=== PATIENT | male | born 1985 | race Caucasian/White ===

== ENCOUNTER 2018-11-11 09:28 | Emergency (ER) | payer MEDICAID, SELFPAY ==
[2018-11-11 09:32] VITALS: BP 141/94; PULSE 97; RESP 18; TEMP 37; O2SAT 98
--- NOTE | 2018-11-11 09:54 | ED.GENADUL_ITS ---
Discharge Plan Disposition Patient Disposition: HOME Condition: Good Discharge Details Chief Complaint: GenMedical Clinical Impression: Acute effusion of right ear, Congestion of right ear Primary Care Provider: Polina Darby ED Provider: Vin Fajardo Home Meds and New Rx's Prescriptions: New prednisone 50 MG tablet 50 mg PO DAILY Qty: 5 RF: 0 loratadine 10 mg capsule 10 mg PO DAILY Qty: 10 RF: 0 No Action buspirone 7.5 mg tablet 7.5 mg PO BID Qty: 180 RF: 3 gabapentin 800 mg tablet 800 mg PO TID Qty: 90 RF: 11 amoxicillin-pot clavulanate [Augmentin] 875-125 mg tablet 1 tab PO BID Qty: 20 RF: 0 acetaminophen [Mapap Extra Strength] 500 MG tablet 500 mg PO Q6H PRN PRN (Reason: Pain) Qty: 0 RF: 0 calcium carbonate 500 MG tablet,chewable 500 mg CH PRN PRNRF: 0 Discharge Instructions Instructions: Serous Otitis Media (ED) Additional Instructions: Please take medication as directed. Please take 1000 mg of Tylenol and 800 mg of ibuprofen every 6 hours. If you notice any worsening of your symptoms, or any new symptoms such as worsening neck pain, neck stiffness, headache, vomiting, diarrhea, fever, chills, shortness of breath, chest pain, numbness, weakness, or fainting , please return immediately to the emergency department for reevaluation. Please follow up with your primary care provider as soon as possible for reassessment and reevaluation. As always, it was a pleasure participating in your medical care today. Referrals: Polina Darby, OFFSET PRESS OPERATOR APPRENTICE [Primary Care Provider] - Medical Decision Making This is a pleasant 32-year-old male who presents with multiple complaints. He was diagnosed with a right-sided otitis media 1 week ago and is taking Augmentin as directed. He admits to continued right ear pain and fullness and pressure. He also notes notable fatigue over the last week he denies any significant neck pain or headache. He shows no signs of meningitis. Oropharynx is benign, and shows no signs of airway compromise, no evidence of trismus, or mass in the neck. No swelling in the neck of the face. Signs and symptoms are inconsistent with meningitis, tracheal abscess, neck Mass, otitis media, or other significant abnormality. The patient vital signs are reassuring with no significant tachycardia or fever. I do feel that the patient would benefit from antihistamine and steroid use for his notable effusion behind his right TM. We will also check for mono and flu. As he is completed a full course of A ugmentin, and with no signs or symptoms clinically consistent with strep I do not think that strep testing is indicated at this time especially with no evidence of severe sore throat, tender cervical lymphadenopathy. 10:30 AM Patient is feeling slightly better after medication treatment. Monospot and influenza are both negative. Patient's vital signs are stable and reassuring. I feel he is dealing with some mild sinusitis, and congestion in his right ear as well as a noninfectious effusion behind the right tympanic membrane. We will continue the home medications of steroids and antihistamines. We discussed red flags which to return the patient understands. I have extensively reviewed the treatment plan and discharge instructions with the patient and their family. I have addressed all patient concerns at this time. The patient and family was made aware of what symptoms to monitor for that would warrant a return to the emergency department. Discussed the plan with the patient and family, they demonstrate verbal understanding and agreement with our assessment and plan at this time. HPI General Date/Time Provider Initiated Documentation: 11/11/18 09:34 . HPI Narrative: This is a 32-year-old male with no significant past medical history who presents today for various complaints. Patient states that 1 week ago he was diagnosed with right-sided otitis media and started on Augmentin. He has been taking this as directed, however he has not had any significant improvement of his pain. He still admits to mild pain in his right ear. He also admits to notable fatigue over the last week. He denies any severe neck pain, or headache. He does admit to mild myalgias and achiness throughout though. He denies any vomiting in spite of his nausea. He denies any sore throat. He denies any significant difficulty swallowing. He denies any fever, numbness, tingling, weakness. He has multiple sick contacts at home. He is able to eat and drink well without significant difficulty. He has no other complaints at this time. He denies any recent surgeries, IV illicit drug use, or pertinent family history. Related Data Home Medications Medication Instructions Recorded Confirmed acetaminophen [Mapap Extra 500 mg PO Q6H PRN PRN #0 11/16/17 11/11/18 Strength] calcium carbonate 500 mg CH PRN PRN 03/02/18 11/11/18 buspirone 7.5 mg tablet 7.5 mg PO BID #180 tab-cap 09/18/18 11/11/18 gabapentin 800 mg tablet 800 mg PO TID #90 tab 10/12/18 11/11/18 amoxicillin 875 mg-potassium 1 tab PO BID #20 tab 11/02/18 11/11/18 clavulanate 125 mg tablet loratadine 10 mg PO DAILY #10 cap 11/11/18 prednisone 50 mg PO DAILY #5 tab 11/11/18 Previous Rx's Medication Instructions Recorded acetaminophen [Mapap Extra 500 mg PO Q6H PRN PRN #0 11/16/17 Strength] buspirone 7.5 mg tablet 7.5 mg PO BID #180 tab-cap 09/18/18 gabapentin 800 mg tablet 800 mg PO TID #90 tab 10/12/18 amoxicillin 875 mg-potassium 1 tab PO BID #20 tab 11/02/18 clavulanate 125 mg tablet loratadine 10 mg PO DAILY #10 cap 11/11/18 prednisone 50 mg PO DAILY #5 tab 11/11/18 Allergies Allergy/AdvReac Type Severity Reaction Status Date / Time lisdexamfetamine dimesylate AdvReac Auditory Verified 11/11/18 09:34 [From Vyvanse] Hallucination General Stated Complaint: GenMedical SLY: 3 Review of Systems Review of Systems All systems reviewed & are unremarkable except as noted in HPI and below PFSH Social History household members: spouse and children housing: apartment marital status details: Zoe Escamilla with 3 children lives independently: Yes number of children: 3 current occupational status: unemployed current occupation: cares for with [employer] pets and animals: Yes (Dog) sexually active: Yes Smoking and Tabacco status: Current every day alcohol intake: current alcohol intake frequency: a few times a month Alcohol type: beer substance use type: does not use Exam Narrative Exam Narrative: 1.Const: Well-nourished, Well-developed, appearing stated age 2.Eyes: PERRL, no conjunctival injection, and symmetrical lids. 3.ENT: Atraumatic external nose and ears. Moist MM. Neck: Symmetric, trachea midline, No thyromegaly. Patient demonstrates good movement of cervical neck. There is no nuchal rigidity, no nuchal tenderness. Patient is able to flex the neck without any difficulty or significant pain. Negative Kernig's and Brudzinski sign. Notable clear serous fluid noted behind the right tympanic membrane, mild bulging, no signs of purulent effusion. Minimal erythema. Osseous structures are easily identified. No pain or tenderness over the mastoid process bilaterally. No trismus. Oropharynx demonstrates minimal erythema, no tonsillar exudates, no signs of airway compromise. 4.CVS: +S1/S2, No murmurs or gallops. Peripheral pulses 2+ and equal in all extremities. Brisk capillary refill in all extremities. 5.RESP: Unlabored respiratory effort. Clear to auscultation bilaterally. No wheezes rales or rhonchi 6.GI: Soft, Nontender/Nondistended, No hepatosplenomegaly. No guarding or rebound. No significant abdominal tenderness. No pain at McBurney's point, negative Ng sign. 7.MSK: Normocephalic/Atraumatic, Extremities w/o deformity or ttp No cyanosis or clubbing, Normal movement of all extremities. No midline spinal tenderness. 8.Skin: Warm, Dry. No rashes or lesions. 9.Neuro: boilermaker apprentice II-XII grossly intact. Sensation grossly intact, no focal neurologic deficits. 10.Psych: (AAO) x3. Appropriate mood and affect Course Vital Signs Temperature 37.0 C 11/11/18 09:32 Pulse 97 H 11/11/18 09:32 Respiratory Rate 18 11/11/18 09:32 Blood Pressure 141/94 H 11/11/18 09:32 Pulse Oximetry 98 11/11/18 09:32 Temperature 37.0 C 11/11/18 09:32 Temperature Source Skin 11/11/18 09:32 Pulse 97 H 11/11/18 09:32 Respiratory Rate 18 11/11/18 09:32 Respiratory Effort 11/11/18 09:48 Blood Pressure 141/94 H 11/11/18 09:32 Pulse Oximetry 98 11/11/18 09:32 Oxygen Delivery Method Room Air 11/11/18 09:32 Oxygen Flow Rate 0 02/20/19 09:32 Lab/Test Results Lab/Test Results: 11/11/18 09:47 Nose Influenza Types A,B Antigen - Pending
[2018-11-11] MEDS: Loratidine 10 MG TAB 20 MG PO (09:57)
[2018-11-11] MEDS: Acetaminophen 500 MG TAB 1000 MG PO (09:57)
[2018-11-11] MEDS: Ibuprofen 800 MG TAB PO (09:58)
[2018-11-11] MEDS: predniSONE 20 MG TAB 60 MG PO (09:58)
--- NOTE | 2018-11-11 10:13 | NUR.NOTE ---
patient ambulated to [facility], awaiting results Nursing Note:
[2018-11-11 10:15] LABS: Mono Screening Negative (Negative)
== END 2018-11-11 10:40 | disposition home or self-care (01) ==
PROVIDERS: Emergency Provider Student in an Organized Health Care Education/Training Program; PCP Nurse Practitioner Adult Health
DX: H65.191 Other acute nonsuppurative otitis media, right ear (principal); H93.8X1 Other specified disorders of right ear
CPT/HCPCS: 87449; 99283; 86308; J7512

== ENCOUNTER 2018-11-20 15:51 | Outpatient (REF) | payer MEDICAID, SELFPAY ==
[2018-11-20 18:19] LABS: ALT 76 U/L (12-78); AST 38 U/L (15-37); Alkaline Phosphatase 76 U/L (46-116); Anion Gap 8.8 mmol/L (3-11); BUN 18 mg/dL (7-18); Bilirubin, Total 0.3 mg/dL (0.2-1.0); CO2 29.2 mmol/L (21.0-32.0); CREATININE 1.32 mg/dL (0.70-1.30); Calcium 9.5 mg/dL (8.5-10.1); Chloride 102 mmol/L (98-107); Cholesterol 249 mg/dL (50-200); Glucose 116 mg/dL (70-100); HDL Cholesterol 43 mg/dL (40-60); LDL CHOLESTEROL 168 mg/dL (<100); Potassium 3.9 mmol/L (3.5-5.1); Sodium 140 mmol/L (136-145); Total Protein 7.4 g/dL (6.4-8.2); Triglyceride 275 mg/dL (30-150)
[2018-11-20 18:21] LABS: Hemoglobin A1C 5.8 % (4.5-6.2)
== END 2018-11-20 16:11 ==
LOC: LBN 15:51
PROVIDERS: PCP Nurse Practitioner Adult Health; Visit Provider Nurse Practitioner Adult Health
DX: F17.200 Nicotine dependence, unspecified, uncomplicated (principal); F41.9 Anxiety disorder, unspecified; Z51.81 Encounter for therapeutic drug level monitoring; Z83.3 Family history of diabetes mellitus; Z83.438 Family history of other disorder of lipoprotein metabolism and other lipidemia
CPT/HCPCS: 80053; 80061; 83721; 83036

== ENCOUNTER 2018-12-21 11:37 | Outpatient (REF) | payer MEDICAID, SELFPAY ==
[2018-12-21 13:31] LABS: ALT 48 U/L (12-78); AST 29 U/L (15-37); Albumin 3.5 g/dL (3.4-5.0); Alkaline Phosphatase 87 U/L (46-116); Anion Gap 13.1 mmol/L (3-11); BUN 11 mg/dL (7-18); Bilirubin, Total 0.3 mg/dL (0.2-1.0); CO2 22.9 mmol/L (21.0-32.0); Calcium 9.1 mg/dL (8.5-10.1); Chloride 104 mmol/L (98-107); Glucose 161 mg/dL (70-100); Potassium 4.2 mmol/L (3.5-5.1); Sodium 140 mmol/L (136-145); Total Protein 6.7 g/dL (6.4-8.2)
== END 2018-12-21 11:57 ==
LOC: LBN 11:37
PROVIDERS: PCP Nurse Practitioner Adult Health; Visit Provider Nurse Practitioner Adult Health
DX: R94.5 Abnormal results of liver function studies (principal); N28.9 Disorder of kidney and ureter, unspecified
CPT/HCPCS: 80053

== ENCOUNTER 2019-01-15 09:40 | Emergency (ER) | payer MEDICAID, SELFPAY ==
[2019-01-15] VITALS (20 sets, daily range): BP systolic 105–172; BP diastolic 65–102; PULSE 88–125; RESP 11–32; TEMP 37; O2SAT 90–99
--- NOTE | 2019-01-15 09:55 | DI.RAD_ITS ---
SYMPTOMS/DIAGNOSIS: RESTLESS, TACHYCARDIAC, ? ACUTE DISEASE AP AND LATERAL CHEST: Comparison is made with [id number]. The heart size is within normal limits for projection. The lungs are well inflated and clear. No infiltrate effusion or pneumothorax is seen. No mass is identified. IMPRESSION: Negative chest x-ray.
--- NOTE | 2019-01-15 09:57 | DI.CT_ITS ---
SYMPTOMS/DIAGNOSIS: LT EYE BLURRY VISION, ? ACUTE CVA NONCONTRAST HEAD CT: There are no prior comparison exams. No intracranial hemorrhage, mass or infarct is seen. The ventricles are normal in size. The orbits are unremarkable. There is minimal sinus mucosal thickening. IMPRESSION: Negative head CT.
--- NOTE | 2019-01-15 09:58 | ED.GENADUL_ITS ---
Discharge Plan Disposition Patient Disposition: HOME Condition: Improving Discharge Details Chief Complaint: Anxiety Clinical Impression: Anxiety, Insomnia Primary Care Provider: Polina Darby ED Provider: Shantell Marshall Home Meds and New Rx's Prescriptions: Continued buspirone 7.5 mg tablet 7.5 mg PO BID Qty: 180 RF: 3 ranitidine HCl [Zantac] 150 mg tablet 150 mg PO DAILY RF: 0 gabapentin 800 mg tablet 800 mg PO TID Qty: 90 RF: 11 acetaminophen [Mapap Extra Strength] 500 MG tablet 500 mg PO Q6H PRN PRN (Reason: Pain) Qty: 0 RF: 0 calcium carbonate 500 MG tablet,chewable 500 mg CH PRN PRNRF: 0 Discharge Instructions Instructions: Anxiety (ED) Additional Instructions: Follow-up with your scheduled appointment with your doctor on Friday and Human services on . Drink plenty of fluids get plenty of rest. Return immediately to the emergency department with any worsening or new concerning symptoms. Discharge Data Discharge Date/Time-TO BE ENTERED AT DEPARTURE: 01/15/19 13:25 Discharge Physician: Shantell Marshall Medical Decision Making 33-year-old male with a history of anxiety, PTSD, panic attacks and ADHD who presents with tics, restlessness, left eye blurry vision since awaking him from sleep at 1 AM. He has been taking 20 mg daily of Adderall recreationally recently for his ADHD. Has had similar episodes in the past but has not sought medical treatment for this. Review of patient's medical records note that he is seen frequently seen at [facility] for anxiety and depression with panic attacks and also has a h/o cutting and unintentional overdose of recreational tramadol. Blood pressure and heart rate elevated. Remainder of vitals within normal limits. Patient appears anxious. No focal deficits. We will check a visual acuity, place an IV, bolus IV fluids, labs, EKG, chest x- ray and CT head. Suspect symptoms may be due to anxiety, but will rule out another organic cause. Will give a dose of Ativan. 1230 --labs and imaging reviewed and unremarkable. UDS positive for amphetamines consistent with Adderall. CT head, chest x-ray negative. Patient states he feels much better and is requesting to go home. His heart rate is 80s. His blood pressure is within normal limits. Visual acuity noted 20/70 on left, 20/40 on right, and 20/25 bilateral. Patient states he has had this blurry vision in his left eye intermittently over the past few months. He states the blurry vision has improved since arrival. As this blurry vision has been chronic and intermittent, appears unlikely to be due to an acute neurologic cause. Patient discussed that he feels like his symptoms are due to anxiety. Patient was evaluated by [facility] Abhinav at bedside. Patient has a follow-up appointment with his doctor on Friday and his counselor at [facility] on . Discussed with patient and his at bedside and she feels comfortable with him going home. had called earlier to state that patient has not slept for several days and had been taking the Adderall. Patient states he would rather go home and follow-up with his appointments next week. He is instructed to drink plenty of fluids, get plenty of rest, and return immediately to the emergency department any worsening or new concerning symptoms. Medical Records Medical records reviewed: Yes I reviewed the patient's medical records. Imaging Data Radiologic Study: Radiologist's impression: AP AND LATERAL CHEST: Comparison is made with [id number]. The heart size is within normal limits for projection. The lungs are well inflated and clear. No infiltrate effusion or pneumothorax is seen. No mass is identified. IMPRESSION: Negative chest x-ray. NONCONTRAST HEAD CT: There are no prior comparison exams. No intracranial hemorrhage, mass or infarct is seen. The ventricles are normal in size. The orbits are unremarkable. There is minimal sinus mucosal thickening. IMPRESSION: Negative head CT. Lab Data Lab results reviewed: Yes I reviewed the patient's lab results. Laboratory Tests Range/Units 01/15/19 01/15/19 01/15/19 10:20 10:20 10:30 WBC (4.4-10.8) k/cumm 9.64 RBC (4.50-6.00) m/cumm 5.76 Hgb (13.5-17.5) g/dL 16.9 Hct (40.0-50.0) % 49.0 MCV (80-95) fL 85.1 MCH (27.0-33.0) pg 29.3 MCHC (32.0-36.0) g/dL 34.5 RDW (11.8-14.1) % 13.4 Plt Count (130-400) x1000/uL 296 MPV (8.0-11.0) fL 10.5 Immature Gran % 0.2 Neutrophils % 63.8 Lymphocytes % 22.2 Monocytes % 7.4 Eosinophils % 6.1 Basophils % 0.3 Absolute Neutrophils (1.2-6.7) k/cumm 6.15 Absolute Lymphocytes (1.2-3.4) k/cumm 2.14 Absolute Monocytes (0.11-0.7) k/cumm 0.71 H Absolute Eosinophils (0.0-0.7) k/cumm 0.59 Absolute Basophils (0.0-0.2) k/cumm 0.03 Sodium (136-145) mmol/L 138 Potassium (3.5-5.1) mmol/L 3.5 Chloride (98-107) mmol/L 101 Carbon Dioxide (21.0-32.0) mmol/L 24.4 Anion Gap (3-11) mmol/L 12.6 H BUN (7-18) mg/dL 12 Creatinine (0.70-1.30) mg/dL 1.31 H Estimated GFR/1.73 m2 (mL/min/1.73m2) >= 60.00 Glucose (70-100) mg/dL 127 H Calcium (8.5-10.1) mg/dL 9.2 Magnesium (1.8-2.4) mg/dL 2.3 Total Bilirubin (0.2-1.0) mg/dL 0.5 AST (15-37) U/L 28 ALT (12-78) U/L 50 Alkaline Phosphatase (46-116) U/L 86 Troponin I (0.00-0.06) ng/mL < 0.02 Total Protein (6.4-8.2) g/dL 7.9 Albumin (3.4-5.0) g/dL 4.0 Urine Opiates Screen (Negative) Negative Urine Methadone Screen (Negative) Negative Ur Barbiturates Screen (Negative) Negative Ur Tricyclics Screen (Negative) Negative Ur Amphetamines Screen (Negative) Positive U Benzodiazepines Scrn (Negative) Negative Urine Cocaine Screen (Negative) Negative Ur THC Screen (Negative) Negative ECG Data Attestation: I personally reviewed and interpreted this ECG (s) as follows: Interpretation: 103bpm. Sinus tachycardia. No acute ST elevation or depression. QTc 461. QRS 102. HPI General Mode of arrival: ambulatory . Date/Time Provider Initiated Documentation: 01/15/19 09:41 . Limitations to Documentation: no limitations . Information obtained by: patient . HPI Narrative: Patient is a 33-year-old male with history of anxiety, PTSD, panic attacks and ADHD who presents with multiple complaints since 1 AM. Patient states he was sleeping when he was suddenly awoken at 1am with restlessness, tics, and blurry double vision in his left eye. Patient states he has had 3 similar episodes before in the past but has not sought medical treatment for this. Patient states usually these episodes resolve on their own but states this episode has been lasting longer. Patient states he takes recreational Adderall for a total of 20 mg daily recently. He states he had been taking BuSpar up to 1 month ago for anxiety but he stopped this. Patient states he feels a hot flushed numb and fuzzy warm feeling in his head. He also admits to recent lack of sleep which he associates with the sy mptoms. He states he has been eating and drinking normally and denies any known fever, vomiting or diarrhea. He denies any chest pain or shortness of breath. He denies headache but does admit to a sore feeling in his neck arms and legs. Related Data Home Medications Medication Instructions Recorded Confirmed acetaminophen [Mapap Extra 500 mg PO Q6H PRN PRN #0 11/16/17 01/15/19 Strength] calcium carbonate 500 mg CH PRN PRN 03/02/18 01/15/19 buspirone 7.5 mg tablet 7.5 mg PO BID #180 tab-cap 09/18/18 01/15/19 gabapentin 800 mg tablet 800 mg PO TID #90 tab 10/12/18 01/15/19 ranitidine 150 mg tablet 150 mg PO DAILY 12/21/18 01/15/19 Previous Rx's Medication Instructions Recorded acetaminophen [Mapap Extra 500 mg PO Q6H PRN PRN #0 11/16/17 Strength] buspirone 7.5 mg tablet 7.5 mg PO BID #180 tab-cap 09/18/18 gabapentin 800 mg tablet 800 mg PO TID #90 tab 10/12/18 Allergies Allergy/AdvReac Type Severity Reaction Status Date / Time lisdexamfetamine dimesylate AdvReac Auditory Verified 01/15/19 11:42 [From Vyvanse] Hallucination General Stated Complaint: Anxiety SLY: 3 Review of Systems Review of Systems All systems reviewed & are unremarkable except as noted in HPI and below Constitutional Reports as per HPI, Denies chills and Denies fever(s) Eyes Reports blurry vision (left eye double vision) ENT Denies dizziness, Denies sore throat and Denies throat swelling Cardiovascular Denies chest pain and Denies dyspnea Respiratory Denies cough and Denies dyspnea Gastrointestinal Denies abdominal pain, Denies diarrhea and Denies vomiting Genitourinary Denies hematuria and Denies dysuria Musculoskeletal Denies back pain and Denies numbness Integumentary/Breasts Denies lesions and Denies rash Neurologic Denies dizziness, Denies focal weakness, Denies numbness and Reports restless legs Allergic/Immunologic Denies throat swelling [facility] Medical History Esophagitis with gastritis (Chronic) Abdominal adhesions (Chronic 07/29/16) Depression (Chronic 03/12/17) Family history of diabetes mellitus (Chronic 07/29/16) Intentional self-harm by blunt object, initial encounter (Chronic 01/13/18) PTSD (post-traumatic stress disorder) (Chronic 03/12/17) Substance use disorder (Chronic 12/22/17) Tobacco use disorder (Chronic 07/29/16) Tubular adenoma of colon (Chronic 03/03/18) Acute appendicitis (Resolved ~05/2015) Inflammatory bowel diseases (IBD) (Ruled-out ~02/2018) Surgical History Appendectomy (06/15/15) Colonoscopy - MAC (03/03/18) EGD - MAC (03/03/18) Laparotomy (12/05/17) Family History Mother Mental disorder Father Essential hypertension Other Asthma Social History Smoking/Tobacco Use Status: Current every day Alcohol Intake: current Alcohol Intake frequency: a few times a month Alcohol type: beer Drug use: Never Substance use type: does not use Household members: spouse and children Housing: apartment Number of Children: 3 current occupation: cares for with [employer] Pets and animals: Yes (Dog) Sexually active: Yes Do you feel safe in your relationship?: Yes Exam Const General: cooperative and anxious HENMT Head: normal to inspection Ears: hearing grossly normal bilaterally and external ears normal Face and sinus: normal facial exam Mouth: oral mucosae normal Throat: posterior oropharynx normal Eyes General: appearance normal, both eyes and all related structures Pupils: PERRL EOM: EOM intact bilaterally Neck Neck: normal visual inspection and No submandibular swelling Lymphatic: no lymphadenopathy noted Chest Chest: normal inspection of the chest and no tenderness Resp Effort & Inspection: normal respiratory effort and able to speak in complete sentences Auscultation: clear to auscultation bilaterally Cardio Rate: tachycardic Rhythm: regular rhythm GI Inspection: normal to inspection Palpation: soft, not firm, not rigid and nontender Auscultation: normal bowel sounds Skin General skin exam: no rashes or lesions noted Neuro General: alert, awake and oriented x3 Cranial Nerves: CN's II-XI intact bilaterally Cognition: normal cognition Speech: speech normal Motor: muscle tone normal throughout and strength 5/5 throughout Sensory Exam: no sensory deficits noted Extrem General: normal to inspection, full ROM and no edema Psych Appearance: grossly normal Mental Status: mental status grossly normal Speech and Movement: speech and movement normal Affect: normal affect Course Vital Signs Temperature 98.6 F 01/15/19 09:47 Pulse 125 H 01/15/19 09:47 Respiratory Rate 24 01/15/19 09:47 Blood Pressure 172/102 H 01/15/19 09:47 Pulse Oximetry 98 01/15/19 09:47 Temperature 98.6 F 01/15/19 09:47 Pulse 125 H 01/15/19 09:47 Respiratory Rate 24 01/15/19 09:47 Blood Pressure 172/102 H 01/15/19 09:47 Blood Pressure Position Sitting 01/15/19 09:47 Pulse Oximetry 98 01/15/19 09:47 Oxygen Delivery Method Room Air 01/15/19 09:47 Oxygen Flow Rate 0 01/15/19 09:47
[2019-01-15] MEDS: Normal Saline 1,000 ML 1000 ML IV (10:25)
[2019-01-15] MEDS: LORazepam 2 MG/ML VIAL 1 MG IVP (10:25)
[2019-01-15 10:29] LABS: Abs Immature Grans 0.02 k/cumm (0.0-0.09); Absolute Basophil Count 0.03 k/cumm (0.0-0.2); Absolute Eosinophil Count 0.59 k/cumm (0.0-0.7); Absolute Lymphocyte Count 2.14 k/cumm (1.2-3.4); Absolute Monocyte Count 0.71 k/cumm (0.11-0.7); Absolute Neutrophil Count 6.15 k/cumm (1.2-6.7); Basophils % 0.3; Eosinophils % 6.1; HGB 16.9 g/dL (13.5-17.5); Immature Grans % 0.2; Lymphocytes % 22.2; Mean Corp. HGB Concentration 34.5 g/dL (32.0-36.0); Mean Corpuscular Hemoglobin 29.3 pg (27.0-33.0); Mean Corpuscular Volume 85.1 fL (80-95); Mean Platelet Volume 10.5 fL (8.0-11.0); Monocytes % 7.4; Neutrophils % 63.8; Platelet Count 296 x1000/uL (130-400); RBC 5.76 m/cumm (4.50-6.00); RBC Distribution Width 13.4 % (11.8-14.1); White Blood Cell Count 9.64 k/cumm (4.4-10.8)
[2019-01-15 10:46] LABS: ALT 50 U/L (12-78); AST 28 U/L (15-37); Alkaline Phosphatase 86 U/L (46-116); Anion Gap 12.6 mmol/L (3-11); BUN 12 mg/dL (7-18); Bilirubin, Total 0.5 mg/dL (0.2-1.0); CO2 24.4 mmol/L (21.0-32.0); CREATININE 1.31 mg/dL (0.70-1.30); Calcium 9.2 mg/dL (8.5-10.1); Chloride 101 mmol/L (98-107); Glucose 127 mg/dL (70-100); Magnesium 2.3 mg/dL (1.8-2.4); Potassium 3.5 mmol/L (3.5-5.1); Sodium 138 mmol/L (136-145); Total Protein 7.9 g/dL (6.4-8.2)
[2019-01-15 10:48] LABS: Troponin I < 0.02 ng/mL (0.00-0.06)
[2019-01-15 10:53] LABS: *AMPHETAMINES SCREEN URINE POSITIVE (Negative); *BARBITURATES SCREEN URINE Negative (Negative); *BENZODIAZEPINES SCREEN URINE Negative (Negative); Cannabinoids THC Negative (Negative); Cocaine Screen,Urine Negative (Negative); METHADONE URINE SCREEN Negative (Negative); OPIATES URINE SCREEN Negative (Negative)
[2019-01-15 10:57] LABS: Tricyclic Antidepressants Negative (Negative)
--- NOTE | 2019-01-15 12:32 | PDOC.MHCN ---
Date of service: 01/15/19 Time of Service: 12:32 Mental Health Crisis Note Presenting Issue How did you arrive at the ED and why did you come: Malcolm arrived in the emergency room due to wanting to get some abdominal pain examined. During the medical work-up the doctor became concerned about the level of anxiety he presented. Precipitating Factors Malcolm denies current or past history of suicidal ideation, planning, intent, or attempts. He identifies a consistent treatment team that he addresses his anxiety with regularly. Disposition BEHAVIOR: cooperative but slightly sullen EYE CONTACT: good MOOD: anxious AFFECT: irritable APPETITE: good SLEEP(trouble falling/staying asleep: none reported Plan Malcolm will follow up with his counselor at [facility]. He will also follow up with his psychiatrist at [facility]. He is ok to be safely released upon his own accord.
== END 2019-01-15 13:25 | disposition home or self-care (01) ==
PROVIDERS: Emergency Provider Physician Assistant; PCP Nurse Practitioner Adult Health
DX: R45.1 Restlessness and agitation (principal); G47.00 Insomnia, unspecified; F41.0 Panic disorder [episodic paroxysmal anxiety]; F90.9 Attention-deficit hyperactivity disorder, unspecified type; F41.8 Other specified anxiety disorders; H53.8 Other visual disturbances
CPT/HCPCS: 36415; 80053; 80307; 93005; 96361; 96374; 99285; 70450; 71046; 83735; 84484; 85025; 93010; J2060

== ENCOUNTER 2019-04-05 18:56 | Inpatient (IN) | payer MEDICAID, SELFPAY ==
[2019-04-05] VITALS (56 sets, daily range): BP systolic 103–138; BP diastolic 58–113; PULSE 64–117; RESP 11–36; TEMP 37.8; O2SAT 90–100
--- NOTE | 2019-04-05 18:56 | NUR.NOTE ---
Nursing Note: ems states that pt is combative and hostile. ems states that PT has been exhibiting skitsfrenic actions pt was unable to communicate with ems and was violent and combative. ems called [facility] who chased the PT down and EMS was able to give PT was given 5 MG of versed after being moved to ambulance PT was combative for safety of ems pt was given 5 additional MG of versed 10MG total. pt took 27 30mg tablets of vivance
--- NOTE | 2019-04-05 19:01 | W.ED.GENAD ---
Discharge Plan Disposition Patient Disposition: [facility] INPATIENT Condition: Fair Discharge Details Chief Complaint: OD/Poison Clinical Impression: Amphetamine overdose of undetermined intent, Acute hypokalemia Primary Care Provider: Polina Darby ED Provider: Chase Alegria Home Meds and New Rx's Prescriptions: No Action ranitidine HCl [Zantac] 150 mg tablet 150 mg PO DAILY Qty: 60 RF: 11 polyethylene glycol 3350 [Miralax] 17 gram powder in packet 17 gm PO .-W- PRN (Reason: constipation) Qty: 30 RF: 1 atomoxetine [Strattera] 60 mg capsule 60 mg PO QHS RF: 0 gabapentin 800 mg tablet 800 mg PO TID Qty: 90 RF: 11 acetaminophen [Mapap Extra Strength] 500 MG tablet 500 mg PO Q6H PRN PRN (Reason: Pain) Qty: 0 RF: 0 calcium carbonate 500 MG tablet,chewable 500 mg CH PRN PRNRF: 0 Medical Decision Making Head CT negative, chest x-ray unremarkable. Patient slowly becoming more alert after initial 2-hour observation. Initially required placement of soft restraints due to agitation and inability to follow commands, flailing and kicking, risk for falling and harming himself and staff. Progressively removed restraints until they were able to be completely removed. Poison control contacted shortly after arrival, recommending observation for minimum of 6 hours, possibly longer based on condition. Initially presented hyperthermic and tachycardic, this resolved after second liter of IV normal saline. No additional medicines were required. Patient on 3 L O2 initially as he had snoring respirations, oxygenating at 98% with 3 L nasal cannula. 4 hours into visit, patient is able to follow commands, states he is aware he is in the emergency department, unable to hold conversation due to somnolence. Continues without focal neurologic deficit. I have contacted ICU for admission, Dr. Sotomayor kindly accepting for observation status. We will repeat Tylenol and chemistry now as it has been 4 hours. Labs remarkable for hypokalemia which we are repleting with IV KCl. 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 He had not been prescribed amphetamines for 2 years after the last time he abused them and developed psychosis. 3 days ago he was prescribed 30 mg Vyvanse and since that time he has been taking handfuls of this and not sleeping. He has been getting progressively anxious and paranoid according to family and . His kicked him out of the house today as a result and while he was at his mother's home he became agitated, throwing objects, and she had to call the police. They tackled him for fear of him hurting himself. EMS arrived and gave him 5 mg of Versed followed by an additional 5 mg. He arrives somnolent with intermittent episodes of agitation and combativeness. No reports of suicidality but his family is concerned that he does intentionally abuse his medications as an attempt to escape his depression. He has a history of cutting. He also has a history of abusing gabapentin which he ran out of 1 week ago. General Date/Time Provider Initiated Documentation: 04/05/19 19:22. Related Data Home Medications Medication Instructions Recorded Confirmed acetaminophen [Mapap Extra 500 mg PO Q6H PRN PRN #0 11/16/17 03/01/19 Strength] calcium carbonate 500 mg CH PRN PRN 03/02/18 03/01/19 ranitidine HCl 150 mg tablet 150 mg PO DAILY #60 tab 01/18/19 03/01/19 atomoxetine 60 mg capsule 60 mg PO QHS cap 02/01/19 03/01/19 gabapentin 800 mg tablet 800 mg PO TID #90 tab 02/01/19 03/01/19 polyethylene glycol 3350 17 gram 17 gm PO .M-W-F PRN #30 each 03/01/19 03/01/19 oral powder packet Previous Rx's Medication Instructions Recorded acetaminophen [Mapap Extra 500 mg PO Q6H PRN PRN #0 11/16/17 Strength] ranitidine HCl 150 mg tablet 150 mg PO DAILY #60 tab 01/18/19 gabapentin 800 mg tablet 800 mg PO TID #90 tab 02/01/19 polyethylene glycol 3350 17 gram 17 gm PO .M-W-F PRN #30 each 03/01/19 oral powder packet Allergies Allergy/AdvReac Type Severity Reaction Status Date / Time lisdexamfetamine dimesylate AdvReac Auditory Verified 03/01/19 11:37 [From Sylvia] Hallucination General SLY: 3 Review of Systems Review of Systems Unobtainable due to illness [facility] Medical History Abdominal adhesions (Chronic 07/29/16) Acute appendicitis (Resolved ~05/2015) Depression (Chronic 03/12/17) Esophagitis with gastritis (Chronic) Family history of diabetes mellitus (Chronic 07/29/16) Inflammatory bowel diseases (IBD) (Ruled-out ~02/2018) Intentional self-harm by blunt object, initial encounter (Resolved 01/13/18) PTSD (post-traumatic stress disorder) (Chronic 03/12/17) Substance use disorder (Chronic 12/22/17) Tobacco use disorder (Chronic 07/29/16) Tubular adenoma of colon (Chronic 03/03/18) Surgical History Appendectomy (06/15/15) Colonoscopy - MAC (03/03/18) EGD - MAC (03/03/18) Laparotomy (12/05/17) Family History Mother Mental disorder Father Essential hypertension Ulcerative colitis Other Asthma Social History Smoking/Tobacco Use Status: Current every day Alcohol Intake: current Alcohol Intake frequency: a few times a month Alcohol type: beer Drug use: Never Substance use type: does not use Household members: spouse and children Housing: apartment Number of Children: 3 current occupation: cares for with [employer] Pets and animals: Yes (Dog) Sexually active: Yes Do you feel safe in your relationship?: Yes Exam Const Other: Initially sleeping however when stimulated quickly becomes agitated, flailing arms and kicking legs. Unable to follow commands. Disheveled, dirt on forehead and chest. HENMT Mouth: moist mucous membranes Eyes Conjunctivae: conjunctivae normal Sclera: sclerae normal Neck Neck: trachea midline Resp Effort & Inspection: normal respiratory effort Auscultation: clear to auscultation bilaterally Cardio Rhythm: regular rhythm GI Inspection: non-distended Palpation: soft, not firm, no guarding, no masses and nontender Skin General skin exam: no rashes or lesions noted Neuro General: awake, tone normal, moves all extremities, no focal motor deficits and CN's II-XI intact bilaterally Pupils: Normal pupillary reactivity/response: right and left Psych Appearance: grossly normal
--- NOTE | 2019-04-05 19:02 | DI.COMBO_ITS ---
SYMPTOM/DIAGNOSIS: ALTERED MENTAL STATUS, HEAD INJURY NONCONTRAST HEAD CT: Comparison is made with 01/15/19. A noncontrast cranial CT was performed. The ventricular system is normal in appearance. There is no evidence of an intracranial mass lesion. There is no evidence of a subdural or epidural hematoma. No focal areas of decreased attenuation are seen. CONCLUSION: Normal noncontrast Cranial CT. AP CHEST: Comparison is made with 01/15/19. Heart size and pulmonary vasculature are within normal limits. There is poor inspiration. The lungs are clear. No effusions or pneumothoraces are identified. No acute osseous abnormality is identified. IMPRESSION: No acute pulmonary process.
[2019-04-05 19:26] LABS: Abs Immature Grans 0.05 k/cumm (0.0-0.09); Basophils % 0.3; HCT 42.3 % (40.0-50.0); HGB 14.9 g/dL (13.5-17.5); Immature Grans % 0.3; Lymphocytes % 9.6; Mean Corp. HGB Concentration 35.2 g/dL (32.0-36.0); Mean Corpuscular Volume 85.3 fL (80-95); Mean Platelet Volume 10.5 fL (8.0-11.0); Monocytes % 5.1; Neutrophils % 83.7; Platelet Count 316 x1000/uL (130-400); RBC 4.96 m/cumm (4.50-6.00); RBC Distribution Width 13.1 % (11.8-14.1); White Blood Cell Count 15.35 k/cumm (4.4-10.8)
[2019-04-05 19:31] LABS: Absolute Basophil Count 0.05 k/cumm (0.0-0.2); Absolute Eosinophil Count 0.15 k/cumm (0.0-0.7); Absolute Lymphocyte Count 1.47 k/cumm (1.2-3.4); Absolute Monocyte Count 0.78 k/cumm (0.11-0.7); Absolute Neutrophil Count 12.85 k/cumm (1.2-6.7)
[2019-04-05] MEDS: Normal Saline 1,000 ML 1000 ML IV (19:46)
[2019-04-05 19:49] LABS: ALT 56 U/L (12-78); AST 38 U/L (15-37); Alkaline Phosphatase 79 U/L (46-116); Anion Gap 13.7 mmol/L (3-11); BUN 18 mg/dL (7-18); Bilirubin, Total 0.6 mg/dL (0.2-1.0); CO2 24.3 mmol/L (21.0-32.0); CREATININE 1.46 mg/dL (0.70-1.30); Calcium 9.7 mg/dL (8.5-10.1); Chloride 106 mmol/L (98-107); Estimated GFR 56.32 (mL/min/1.73m2); Glucose 144 mg/dL (70-100); Magnesium 1.8 mg/dL (1.8-2.4); Potassium 3.1 mmol/L (3.5-5.1); Sodium 144 mmol/L (136-145); Total Protein 7.6 g/dL (6.4-8.2)
--- NOTE | 2019-04-05 19:58 | DI.VRAD_ITS ---
EXAM: CT Head Without Contrast EXAM DATE/TIME: 04/05/2019 7:06 PM CLINICAL HISTORY: 33 years old, male; Altered mental status/memory loss; Patient HX: Altered, head injury TECHNIQUE: Imaging protocol: Axial computed tomography images of the head without contrast. Coronal and sagittal reformatted images were created and reviewed. COMPARISON: CT HEAD WO 01/15/2019 10:55 AM FINDINGS: Brain: The ventricles and the cortical sulci are within normal limits. There is no evidence of acute hemorrhage, mass or shift. There is no evidence of an acute cortical or major vascular territory infarct. No abnormal extra-axial collections are identified. Ventricles: No significant ventricular enlargement/hydrocephalus. Bones/joints: There is no acute bony abnormality Sinuses: No significant sinus opacification or fluid level. There is rightward deviation of the nasal septum and pneumatization of the left middle turbinate also previously noted Mastoid air cells: No significant mastoid opacification Soft tissues: Subcutaneous soft tissues are unremarkable IMPRESSION: No acute findings. Dictated and Authenticated by: Daylin Cox MD. Ordering:REGINO Stone MD
[2019-04-05 20:02] LABS: Troponin I < 0.05 ng/mL (0.00-0.06)
[2019-04-05 20:04] LABS: Creatine Kinase 780 U/L (39-308); ETHANOL BLOOD < 3.0 mg/dL (<3)
[2019-04-05 20:06] LABS: Salicylate 5.9 mg/dL (2.8-20.0)
[2019-04-05 20:07] LABS: Acetaminophen < 2 ug/mL (10-30)
--- NOTE | 2019-04-05 20:19 | DI.VRAD_ITS ---
EXAM: XR Chest, 1 View EXAM DATE/TIME: 04/05/2019 7:19 PM CLINICAL HISTORY: 33 years old, male; Other: Altered, head injury TECHNIQUE: Imaging protocol: XR of the chest, 1 view. COMPARISON: CR XR CHEST 2V PA LATERAL 01/15/2019 10:56 AM FINDINGS: Lungs: Unremarkable. No consolidation. Pleural space: Unremarkable. No pleural effusion. No pneumothorax. Heart/Mediastinum: Unremarkable. No cardiomegaly. Bones/joints: Unremarkable. IMPRESSION: No acute findings Dictated and Authenticated by: Daylin Cox MD. Ordering:REGINO Stone MD
[2019-04-05 20:26] LABS: Bilirubin Small (Negative); Blood Negative (Negative); Clarity Clear (Clear); Glucose Negative (Negative); Ketones Negative (Negative); Leukocyte Esterase Negative (Negative); Nitrite Negative (Negative); Specific Gravity 1.015 (1.005-1.025); Urobilinogen 0.2 EU/dL (Up TO 0.2); pH 8.5 (5-8)
--- NOTE | 2019-04-05 20:32 | NUR.NOTE ---
Nursing Note: upon arrival to ED PT was extremely violent and abrasive attempting to harm staff and role out of bed as well as hitting his body against railings. since that point violent behavior has stopped pt is still not able to make verbal communication however PT can shake his head yes or no to simple questions. pt was asked to be non violent and it was explained in simple terms that if PT would remain non violent restraints would be removed test run without restraints was performed pt was able to remain nonviolent with the assistance of continuous reminder to remain nonviolent and restraints have been removed from PT. pt remain on 1 to 1 nursing care to maintain patients safety as PT is still a significant risk to himself and others if un wathced as PT behavior is unpredictable and pt will occasionally thrash in his bed and needs to be reminded approximately once ever 20 to 30 seconds to remain calm and lay still nopt pull at lines and not role out of bed as to prevent what is perceived to be accidental self harm
[2019-04-05 20:36] LABS: Bacteria Moderate HPF (Negative); C & S Indicated? No; Casts 0-2 Hyaline LPF (Negative); Crystals Moderate Amorphous HPF (Negative); Epithelial Cells Rare HPF (Negative); Mucus Moderate (Negative); Other Cells Rare Renal (Negative); RBC 0-2 (0-2)
[2019-04-05 20:43] LABS: *AMPHETAMINES SCREEN URINE POSITIVE (Negative); *BARBITURATES SCREEN URINE Negative (Negative); *BENZODIAZEPINES SCREEN URINE POSITIVE (Negative); Cannabinoids THC Negative (Negative); Cocaine Screen,Urine Negative (Negative); METHADONE URINE SCREEN Negative (Negative); OPIATES URINE SCREEN Negative (Negative)
[2019-04-05 20:44] LABS: Tricyclic Antidepressants Negative (Negative)
[2019-04-05] MEDS: POTASSIUM CHLORIDE 10 MEQ/100 ML BAG 100 MEQ IVPB ×2 (21:46→23:41)
[2019-04-05] MEDS: Normal Saline 1,000 ML 125 ML IV (23:14)
--- NOTE | 2019-04-05 23:19 | W.PM.HP.N ---
Date of service: 04/05/19 Time of Service: 23:19 Assessment and Plan (1) Intentional amphetamine overdose: Start date: 04/05/19 Current visit: Yes Status: Acute This is a 33-year-old gentleman who has repeated overuse of prescribed medications for ADHD with previous amphetamine overdose prompting hospitalization [facility] inpatient psychiatry and now repeated the same issue with recent prescription given for Vyvanse. He also has abused gabapentin and recently ran out of this medication. In the ED he was sedated status post Versed being given in the field but was easily awakened during his observation in the ICU on telemetry. He had mild hyperthermia and tachycardia and these were stable and resolving with iv hydration. He will need to see psychiatry with mental health consultation for the morning when he is awake. He did have some abnormalities of his labs including increased lactate and slight dehydration with hypokalemia which responded to IV fluid resuscitation. His CPK was also slightly elevated which should respond to iv hydration. Follow-up lab will be done in the morning. Qualifiers: Encounter type: initial encounter Qualified Code(s): T43.622A - Poisoning by amphetamines, intentional self-harm, initial encounter (2) Substance use disorder: Current visit: Yes Status: Chronic This patient does have a substance abuse problem which is self treatment for his underlying psychiatric disease. Mental health consultation with possible psychiatric inpatient care again may be warranted. His family feels that he is a danger to himself and self-harm. He has a history of depression and cutting with poor self-esteem. He also has psychotic symptoms mostly when he is overdosing on amphetamines. Any medication that he is prescribed is a potential danger if he misuses and self treats as he has in the past. (3) ADHD: Current visit: Yes Status: Chronic This is a chronic problem which caused the patient dysfunction and is very difficult to treat with his abusive behavior. Mental health will follow-up. Qualifiers: Attention deficit-hyperactivity disorder type: unspecified Qualified Code(s): F90.9 - Attention-deficit hyperactivity disorder, unspecified type History of Present Illness Chief Complaint: Agitation with combativeness after abuse of amphetamine Narrative: This is a 33-year-old gentleman who has a past history of ADHD and drug abuse including gabapentin with depression and poor coping with life stressors. He is with 3 children with one child under the age of 2 years. He states that he does want to take care of his family and is concerned about his possibly leaving him because of his drug use. 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 After that hospitalization he has been on treatment for ADHD with some abuse of medications and has not been prescribed Vyvanse for 2 years. More recently he was placed on 30 mg of Vyvanse and has been taking these by the handful with increasing agitation and psychosis with the patient hearing voices. He stated that when the Vyvanse would start to wear off he was start her voices therefore he was overtreating himself to avoid hearing voices. Obviously there is an underlying psychiatric disease besides his substance abuse. Substances abuse recently also includes gabapentin of which he ran out before starting his Vyvanse. Because of his escalating behavior his kicked him out and he went to his mother's where he continued to have agitation. Medical services were called with patient having to be restrained by police before the ambulance brought him to the ED. He had received Versed 5 mg with repeat 5 mg in the field and when he arrived to the ED he was sedated. He does have a history of self treatment because of depression and a history of cutting with poor self-esteem. He also has neurotic excoriations of his face and abdomen which appear chronic. At the time I saw the patient he was arousing from his Versed sedation and was agitated but not violent and stated that he does hear voices but was able to carry on some conversation. Most of this history was obtained by ED report and reports from his family. He does not have any suicidal thoughts according to family. He does have self treatment with drugs which is intentional and the family is concerned he is hurting himself with this behavior. He was admitted for amphetamine overdose monitor for hypertension, tachycardia and hyperthermia. He did have a low-grade temperature elevation below 38 ?C his tachycardia did respond to IV hydration. He was placed on phototypesetting equipment monitor with one-on-one sedation for safety with consultation and consultation with mental health was planned for the morning when he is less sedated from his Versed dosing. Review of Systems Review of Systems 13 point review of systems otherwise unrevealing or stable. Patient does smoke tobacco but does not feel he needs nicotine supplement. [facility] Medical History Abdominal adhesions (Chronic 07/29/16) Acute appendicitis (Resolved ~05/2015) Depression (Chronic 03/12/17) Esophagitis with gastritis (Chronic) Family history of diabetes mellitus (Chronic 07/29/16) Inflammatory bowel diseases (IBD) (Ruled-out ~02/2018) Intentional self-harm by blunt object, initial encounter (Resolved 01/13/18) PTSD (post-traumatic stress disorder) (Chronic 03/12/17) Substance use disorder (Chronic 12/22/17) Tobacco use disorder (Chronic 07/29/16) Tubular adenoma of colon (Chronic 03/03/18) Surgical History Appendectomy (06/15/15) Colonoscopy - MAC (03/03/18) EGD - MAC (03/03/18) Laparotomy (12/05/17) Family History Mother Mental disorder Father Essential hypertension Ulcerative colitis Other Asthma Social History Smoking/Tobacco Use Status: Current every day Alcohol Intake: current Alcohol Intake frequency: a few times a month Alcohol type: beer Drug use: Never Substance use type: does not use Household members: spouse and children Housing: apartment Number of Children: 3 current occupation: cares for with [employer] Pets and animals: Yes (Dog) Sexually active: Yes Do you feel safe in your relationship?: Yes Meds Home Medications Medication Instructions Recorded Confirmed Type acetaminophen [Mapap Extra 500 mg PO Q6H PRN PRN #0 11/16/17 03/01/19 Rx Strength] calcium carbonate 500 mg CH PRN PRN 03/02/18 03/01/19 History ranitidine HCl 150 mg tablet 150 mg PO DAILY #60 tab 01/18/19 03/01/19 Rx atomoxetine 60 mg capsule 60 mg PO QHS cap 02/01/19 03/01/19 History gabapentin 800 mg tablet 800 mg PO TID #90 tab 02/01/19 03/01/19 Rx polyethylene glycol 3350 17 gram 17 gm PO .M-W-F PRN #30 each 03/01/19 03/01/19 Rx oral powder packet Allergies Allergy/AdvReac Type Severity Reaction Status Date / Time lisdexamfetamine dimesylate AdvReac Auditory Verified 03/01/19 11:37 [From Sylvia] Hallucination Exam Narrative Exam Narrative: General: Patient appears appropriate for age was asleep when approached. He awakens easily and is agitated and fidgety but able to answer questions being alert and oriented at least to person and place. He is in moderate distress from his mental state with hearing voices. HEENT: Scabbed over excoriations of his forehead which appear chronic otherwise normocephalic. Eyes with pupils equal reactive light symmetrically and extraocular movement intact with sclera anicteric. Oropharynx with dry oral mucosa and fair dentition. Ears are normal. Neck: Supple without JVD. Heart: Borderline tachycardic rate with normal rhythm and no appreciable murmurs or gallops. Back: Stooped posture without CVA tenderness. Lungs: Fair aeration and clear to auscultation and percussion. Abdomen: Obese contour, well-healed midline scar above the umbilicus with bowel sounds positive but hypoactive in all quadrants. Soft and nontender to palpation without palpable hepatosplenomegaly. Genitalia/Rectal: Exam deferred. Extremities: Without clubbing, cyanosis or pitting edema. All joints have fair range of motion. Peripheral pulses intact with good cap refill. Skin: Tattoos of her left arm, normal color with good turgor and excoriations with scabbing over his forehead as mentioned and also over his abdomen. There are some abrasions over his legs. Neuro: Cranial nerves II through XII grossly intact, motor and sensory grossly intact. DTRs are physiologic and symmetrical. Psych: Agitation with pressured speech and minimal conversation but appears to respond appropriately to questions. Conversation does wander with tangential thoughts. He does state that he does hear voices. He appears anxious with depressed mood. He is cooperative compared to his agitated state as described prior to admission. Results Imaging Imaging Studies: EXAM: XR Chest, 1 View EXAM DATE/TIME: 04/05/2019 7:19 PM CLINICAL HISTORY: 33 years old, male; Other: Altered, head injury TECHNIQUE: Imaging protocol: XR of the chest, 1 view. COMPARISON: CR XR CHEST 2V PA LATERAL 01/15/2019 10:56 AM FINDINGS: Lungs: Unremarkable. No consolidation. Pleural space: Unremarkable. No pleural effusion. No pneumothorax. Heart/Mediastinum: Unremarkable. No cardiomegaly. Bones/joints: Unremarkable. IMPRESSION: No acute findings Dictated and Authenticated by: Daylin Cox MD. EXAM: CT Head Without Contrast EXAM DATE/TIME: 04/05/2019 7:06 PM CLINICAL HISTORY: 33 years old, male; Altered mental status/memory loss; Patient HX: Altered, head injury TECHNIQUE: Imaging protocol: Axial computed tomography images of the head without contrast. Coronal and sagittal reformatted images were created and reviewed. COMPARISON: CT HEAD WO 01/15/2019 10:55 AM FINDINGS: Brain: The ventricles and the cortical sulci are within normal limits. There is no evidence of acute hemorrhage, mass or shift. There is no evidence of an acute cortical or major vascular territory infarct. No abnormal extra-axial collections are identified. Ventricles: No significant ventricular enlargement/hydrocephalus. Bones/joints: There is no acute bony abnormality Sinuses: No significant sinus opacification or fluid level. There is rightward deviation of the nasal septum and pneumatization of the left middle turbinate also previously noted Mastoid air cells: No significant mastoid opacification Soft tissues: Subcutaneous soft tissues are unremarkable IMPRESSION: No acute findings. Dictated and Authenticated by: Daylin Cox MD Labs : 04/05/19 19:20 04/05/19 23:05 Laboratory Results - last 24 hr 04/05/19 04/05/19 04/05/19 19:20 19:20 19:20 WBC 15.35 H RBC 4.96 Hgb 14.9 Hct 42.3 MCV 85.3 MCH 30.0 MCHC 35.2 RDW 13.1 Plt Count 316 MPV 10.5 Immature Gran % 0.3 Neutrophils % 83.7 Lymphocytes % 9.6 Monocytes % 5.1 Eosinophils % 1.0 Basophils % 0.3 Absolute Neutrophils 12.85 H Absolute Lymphocytes 1.47 Absolute Monocytes 0.78 H Absolute Eosinophils 0.15 Absolute Basophils 0.05 Sodium 144 Potassium 3.1 L Chloride 106 Carbon Dioxide 24.3 Anion Gap 13.7 H BUN 18 Creatinine 1.46 H Estimated GFR/1.73 m2 56.32 Glucose 144 H Calcium 9.7 Magnesium 1.8 Total Bilirubin 0.6 AST 38 H ALT 56 Alkaline Phosphatase 79 Creatine Kinase 780 H Troponin I < 0.05 Total Protein 7.6 Albumin 4.0 Urine Color Urine Clarity Urine pH Ur Specific [place] Urine Protein Urine Ketones Urine Blood Urine Nitrite Urine Bilirubin Urine Urobilinogen Ur Leukocyte Esterase Urine RBC Urine WBC Ur Epithelial Cells Urine Crystals Urine Bacteria Urine Casts Urine Mucus Urine Other Ur Culture Indicated? Urine Glucose Salicylates Urine Opiates Screen Urine Methadone Screen Acetaminophen Ur Barbiturates Screen Ur Tricyclics Screen Ur Amphetamines Screen U Benzodiazepines Scrn Urine Cocaine Screen Ur THC Screen Ethyl Alcohol 04/05/19 04/05/19 04/05/19 19:20 19:20 19:28 WBC RBC Hgb Hct MCV MCH MCHC RDW Plt Count MPV Immature Gran % Neutrophils % Lymphocytes % Monocytes % Eosinophils % Basophils % Absolute Neutrophils Absolute Lymphocytes Absolute Monocytes Absolute Eosinophils Absolute Basophils Sodium Potassium Chloride Carbon Dioxide Anion Gap BUN Creatinine Estimated GFR/1.73 m2 Glucose Calcium Magnesium Total Bilirubin AST ALT Alkaline Phosphatase Creatine Kinase Troponin I Cancelled Total Protein Albumin Urine Color Urine Clarity Urine pH Ur Specific [place] Urine Protein Urine Ketones Urine Blood Urine Nitrite Urine Bilirubin Urine Urobilinogen Ur Leukocyte Esterase Urine RBC Urine WBC Ur Epithelial Cells Urine Crystals Urine Bacteria Urine Casts Urine Mucus Urine Other Ur Culture Indicated? Urine Glucose Salicylates 5.9 Urine Opiates Screen Urine Methadone Screen Acetaminophen < 2 L Ur Barbiturates Screen Ur Tricyclics Screen Ur Amphetamines Screen U Benzodiazepines Scrn Urine Cocaine Screen Ur THC Screen Ethyl Alcohol < 3.0 04/05/19 04/05/19 04/05/19 19:29 19:53 19:53 WBC RBC Hgb Hct MCV MCH MCHC RDW Plt Count MPV Immature Gran % Neutrophils % Lymphocytes % Monocytes % Eosinophils % Basophils % Absolute Neutrophils Absolute Lymphocytes Absolute Monocytes Absolute Eosinophils Absolute Basophils Sodium Cancelled Potassium Cancelled Chloride Cancelled Carbon Dioxide Cancelled Anion Gap Cancelled BUN Cancelled Creatinine Cancelled Estimated GFR/1.73 m2 Cancelled Glucose Cancelled Calcium Cancelled Magnesium Total Bilirubin Cancelled AST Cancelled ALT Cancelled Alkaline Phosphatase Cancelled Creatine Kinase Troponin I Total Protein Cancelled Albumin Cancelled Urine Color Dark yellow Urine Clarity Clear Urine pH 8.5 H Ur Specific [place] 1.015 Urine Protein 100 H Urine Ketones Negative Urine Blood Negative Urine Nitrite Negative Urine Bilirubin Small H Urine Urobilinogen 0.2 Ur Leukocyte Esterase Negative Urine RBC 0-2 Urine WBC 3-5 Ur Epithelial Cells Rare Urine Crystals Moderate amorphous Urine Bacteria Moderate Urine Casts 0-2 hyaline Urine Mucus Moderate Urine Other Rare renal Ur Culture Indicated? No Urine Glucose Negative Salicylates Urine Opiates Screen Negative Urine Methadone Screen Negative Acetaminophen Ur Barbiturates Screen Negative Ur Tricyclics Screen Negative Ur Amphetamines Screen Positive U Benzodiazepines Scrn Positive Urine Cocaine Screen Negative Ur THC Screen Negative Ethyl Alcohol 04/05/19 21:49 WBC RBC Hgb Hct MCV MCH MCHC RDW Plt Count MPV Immature Gran % Neutrophils % Lymphocytes % Monocytes % Eosinophils % Basophils % Absolute Neutrophils Absolute Lymphocytes Absolute Monocytes Absolute Eosinophils Absolute Basophils Sodium Potassium Cancelled Chloride Carbon Dioxide Anion Gap BUN Creatinine Estimated GFR/1.73 m2 Glucose Calcium Magnesium Total Bilirubin AST ALT Alkaline Phosphatase Creatine Kinase Troponin I Total Protein Albumin Urine Color Urine Clarity Urine pH Ur Specific [place] Urine Protein Urine Ketones Urine Blood Urine Nitrite Urine Bilirubin Urine Urobilinogen Ur Leukocyte Esterase Urine RBC Urine WBC Ur Epithelial Cells Urine Crystals Urine Bacteria Urine Casts Urine Mucus Urine Other Ur Culture Indicated? Urine Glucose Salicylates Urine Opiates Screen Urine Methadone Screen Acetaminophen Ur Barbiturates Screen Ur Tricyclics Screen Ur Amphetamines Screen U Benzodiazepines Scrn Urine Cocaine Screen Ur THC Screen Ethyl Alcohol Last Vital Signs Temp 37.8 C H 04/05/19 19:01 Pulse 106 H 04/05/19 22:45 Resp 17 04/05/19 22:45 BP 121/99 H 04/05/19 22:45 Pulse Ox 98 04/05/19 22:45
[2019-04-05 23:41] LABS: Anion Gap 11.9 mmol/L (3-11); BUN 14 mg/dL (7-18); CO2 23.1 mmol/L (21.0-32.0); CREATININE 1.09 mg/dL (0.70-1.30); Calcium 8.7 mg/dL (8.5-10.1); Chloride 110 mmol/L (98-107); Glucose 105 mg/dL (70-100); Potassium 4.7 mmol/L (3.5-5.1); Sodium 145 mmol/L (136-145)
[2019-04-05 23:44] LABS: Acetaminophen < 2 ug/mL (10-30)
[2019-04-06] VITALS (18 sets, daily range): BP systolic 117–146; BP diastolic 65–102; PULSE 68–112; RESP 12–25; TEMP 36.6–37.2; O2SAT 98–100
[2019-04-06 06:59] LABS: HCT 42.8 % (40.0-50.0); HGB 14.6 g/dL (13.5-17.5); Mean Corp. HGB Concentration 34.1 g/dL (32.0-36.0); Mean Corpuscular Hemoglobin 29.6 pg (27.0-33.0); Mean Corpuscular Volume 86.8 fL (80-95); Mean Platelet Volume 10.6 fL (8.0-11.0); Platelet Count 274 x1000/uL (130-400); RBC 4.93 m/cumm (4.50-6.00); RBC Distribution Width 13.5 % (11.8-14.1); White Blood Cell Count 11.09 k/cumm (4.4-10.8)
[2019-04-06 07:13] LABS: Creatine Kinase 965 U/L (39-308)
[2019-04-06 07:18] LABS: ALT 53 U/L (12-78); AST 50 U/L (15-37); Albumin 3.3 g/dL (3.4-5.0); Alkaline Phosphatase 70 U/L (46-116); Anion Gap 10.9 mmol/L (3-11); BUN 13 mg/dL (7-18); Bilirubin, Total 0.8 mg/dL (0.2-1.0); CO2 23.1 mmol/L (21.0-32.0); CREATININE 1.02 mg/dL (0.70-1.30); Calcium 8.5 mg/dL (8.5-10.1); Chloride 108 mmol/L (98-107); Glucose 95 mg/dL (70-100); Potassium 3.9 mmol/L (3.5-5.1); Sodium 142 mmol/L (136-145); Total Protein 6.6 g/dL (6.4-8.2)
--- NOTE | 2019-04-06 08:25 | W.PM.PROGNOT ---
Date of Service Date of service: 04/06/19 Time of Service: 17:56 Assessment and Plan (1) Intentional amphetamine overdose: Current visit: Yes Status: Acute Not suicidal. At this point, out of risk for cardiac toxicity - d/c tele. It's been 24 hours since last ingestion of vyvanse. Cleared by mental health. Qualifiers: Encounter type: initial encounter Qualified Code(s): T43.622A - Poisoning by amphetamines, intentional self-harm, initial encounter (2) Elevated CPK: Current visit: Yes Status: Acute Likely having to do with amphethamine overdose. Started to trend down, but still higher than I'd like to see prior to discharge. Continue IVF. (3) ADHD: Current visit: Yes Status: Chronic Follow up as outpatient. Avoiding stimulants for now Qualifiers: Attention deficit-hyperactivity disorder type: unspecified Qualified Code(s): F90.9 - Attention-deficit hyperactivity disorder, unspecified type (4) Depression: Current visit: No Status: Chronic Follow up as outpatient (5) PTSD (post-traumatic stress disorder): Current visit: No Status: Chronic Follow up as outpatient (6) DVT prophylaxis: Current visit: Yes Status: Acute Not indicated in an ambulatory 33 year old male (7) Discharge planning issues: Current visit: Yes Status: Acute Likely discharge home tomorrow with mental health follow up Subjective Interval history since last seen: Slept from 2 am until this am. Now anxious, pacing this am. Cleared by mental health - not suicidal, but will need outpatient follow up. The patient denies dizziness, chest pain, shortness of breath, nausea, vomiting. When I speak with him about staying at the hospital because of his elevated CPK to get more IVF, he threatens to leave AMA. He verbalizes understanding that he could get renal failure if he does leave AMA and does not drink enough fluids. Exam Narrative Exam Narrative: General: somnolent, easily arousable male, gives short answers to my questions HEENT: EOMI, dry MM Heart: RRR, no m/r/g, HR around 85 when I saw him Lungs: CTAB GI: abdomen is soft, nontender, nondistended Extremities: no e/c/c BLE's Objective Objective Clinical Data: Abnormal lab results 04/05/19 04/05/19 04/05/19 Range/Units 19:20 19:20 19:20 WBC 15.35 H (4.4-10.8) k/cumm Absolute Neutrophils 12.85 H (1.2-6.7) k/cumm Absolute Monocytes 0.78 H (0.11-0.7) k/cumm Potassium 3.1 L (3.5-5.1) mmol/L Chloride (98-107) mmol/L Anion Gap 13.7 H (3-11) mmol/L Creatinine 1.46 H (0.70-1.30) mg/dL Glucose 144 H (70-100) mg/dL AST 38 H (15-37) U/L Creatine Kinase 780 H (39-308) U/L Albumin (3.4-5.0) g/dL Urine pH (5-8) Urine Protein (Negative) mg/dL Urine Bilirubin (Negative) Acetaminophen (10-30) ug/mL 04/05/19 04/05/19 04/05/19 Range/Units 19:20 19:53 23:05 WBC (4.4-10.8) k/cumm Absolute Neutrophils (1.2-6.7) k/cumm Absolute Monocytes (0.11-0.7) k/cumm Potassium (3.5-5.1) mmol/L Chloride 110 H (98-107) mmol/L Anion Gap 11.9 H (3-11) mmol/L Creatinine (0.70-1.30) mg/dL Glucose 105 H (70-100) mg/dL AST (15-37) U/L Creatine Kinase (39-308) U/L Albumin (3.4-5.0) g/dL Urine pH 8.5 H (5-8) Urine Protein 100 H (Negative) mg/dL Urine Bilirubin Small H (Negative) Acetaminophen < 2 L (10-30) ug/mL 04/05/19 04/06/19 04/06/19 Range/Units 23:05 06:30 06:30 WBC 11.09 H (4.4-10.8) k/cumm Absolute Neutrophils (1.2-6.7) k/cumm Absolute Monocytes (0.11-0.7) k/cumm Potassium (3.5-5.1) mmol/L Chloride 108 H (98-107) mmol/L Anion Gap (3-11) mmol/L Creatinine (0.70-1.30) mg/dL Glucose (70-100) mg/dL AST 50 H (15-37) U/L Creatine Kinase (39-308) U/L Albumin 3.3 L (3.4-5.0) g/dL Urine pH (5-8) Urine Protein (Negative) mg/dL Urine Bilirubin (Negative) Acetaminophen < 2 L (10-30) ug/mL 04/06/19 Range/Units 06:30 WBC (4.4-10.8) k/cumm Absolute Neutrophils (1.2-6.7) k/cumm Absolute Monocytes (0.11-0.7) k/cumm Potassium (3.5-5.1) mmol/L Chloride (98-107) mmol/L Anion Gap (3-11) mmol/L Creatinine (0.70-1.30) mg/dL Glucose (70-100) mg/dL AST (15-37) U/L Creatine Kinase 965 H (39-308) U/L Albumin (3.4-5.0) g/dL Urine pH (5-8) Urine Protein (Negative) mg/dL Urine Bilirubin (Negative) Acetaminophen (10-30) ug/mL Vital Signs Temperature 37.2 C 04/06/19 06:16 Temperature Source Temporal Artery Scan 04/06/19 06:16 Pulse 68 04/06/19 04:01 Pulse 74 04/06/19 04:01 Respiratory Rate 25 H 04/06/19 04:01 Respiratory Effort 04/06/19 00:30 Respiratory Depth Normal 04/06/19 00:30 Respiratory Pattern Normal 04/06/19 00:30 Blood Pressure 130/65 04/06/19 04:01 Blood Pressure Mean 78 04/06/19 04:01 Blood Pressure Position Supine 04/05/19 19:01 Pulse Oximetry 100 04/06/19 00:46 Respiratory End-tidal CO2 27 04/06/19 00:01 Oxygen Delivery Method Room Air 04/06/19 00:30 Oxygen Flow Rate 0 04/06/19 00:30 Pain Level 0 04/06/19 00:13 Intake & Output 04/05/19 04/05/19 04/06/19 11:59 23:59 11:59 Intake Total 1100 / 1100 300 / 300 Output Total 400 / 400 Balance 1100 / 1100 -100 / -100 Weight 98.1 kg 98.1 kg Intake: IV 1100 / 1100 Oral 300 / 300 Output: Urine 400 / 400 Other: Urine Color Yellow Urine Appearance Clear Urine Odor None Voiding Methods Urinal Laboratory Results WBC 11.09 k/cumm (4.4-10.8) H 04/06/19 06:30 RBC 4.93 m/cumm (4.50-6.00) 04/06/19 06:30 Hgb 14.6 g/dL (13.5-17.5) 04/06/19 06:30 Hct 42.8 % (40.0-50.0) 04/06/19 06:30 MCV 86.8 fL (80-95) 04/06/19 06:30 MCH 29.6 pg (27.0-33.0) 04/06/19 06:30 MCHC 34.1 g/dL (32.0-36.0) 04/06/19 06:30 RDW 13.5 % (11.8-14.1) 04/06/19 06:30 Plt Count 274 x1000/uL (130-400) 04/06/19 06:30 MPV 10.6 fL (8.0-11.0) 04/06/19 06:30 Immature Gran % 0.3 04/05/19 19:20 83.7 04/05/19 19:20 9.6 04/05/19 19:20 5.1 04/05/19 19:20 1.0 04/05/19 19:20 0.3 04/05/19 19:20 Absolute Neutrophils 12.85 k/cumm (1.2-6.7) H 04/05/19 19:20 Absolute Lymphocytes 1.47 k/cumm (1.2-3.4) 04/05/19 19:20 Absolute Monocytes 0.78 k/cumm (0.11-0.7) H 04/05/19 19:20 Absolute Eosinophils 0.15 k/cumm (0.0-0.7) 04/05/19 19:20 Absolute Basophils 0.05 k/cumm (0.0-0.2) 04/05/19 19:20 Sodium 142 mmol/L (136-145) 04/06/19 06:30 Potassium 3.9 mmol/L (3.5-5.1) 04/06/19 06:30 Chloride 108 mmol/L (98-107) H 04/06/19 06:30 Carbon Dioxide 23.1 mmol/L (21.0-32.0) 04/06/19 06:30 10.9 mmol/L (3-11) 04/06/19 06:30 BUN 13 mg/dL (7-18) 04/06/19 06:30 1.02 mg/dL (0.70-1.30) 04/06/19 06:30 >= 60.00 (mL/min/1.73m2) 04/06/19 06:30 Glucose 95 mg/dL (70-100) 04/06/19 06:30 Calcium 8.5 mg/dL (8.5-10.1) 04/06/19 06:30 Magnesium 1.8 mg/dL (1.8-2.4) 04/05/19 19:20 0.8 mg/dL (0.2-1.0) 04/06/19 06:30 AST 50 U/L (15-37) H 04/06/19 06:30 ALT 53 U/L (12-78) 04/06/19 06:30 70 U/L (46-116) 04/06/19 06:30 965 U/L (39-308) H 04/06/19 06:30 Cancelled 04/05/19 19:28 6.6 g/dL (6.4-8.2) 04/06/19 06:30 3.3 g/dL (3.4-5.0) L 04/06/19 06:30 Dark yellow (Yellow) 04/05/19 19:53 Clear (Clear) 04/05/19 19:53 8.5 (5-8) H 04/05/19 19:53 Ur Specific [place] 1.015 (1.005-1.025) 04/05/19 19:53 100 mg/dL (Negative) H 04/05/19 19:53 Negative mg/dL (Negative) 04/05/19 19:53 Negative (Negative) 04/05/19 19:53 Negative (Negative) 04/05/19 19:53 Small (Negative) H 04/05/19 19:53 0.2 EU/dL (Up TO 0.2) 04/05/19 19:53 Ur Leukocyte Esterase Negative (Negative) 04/05/19 19:53 0-2 (0-2) 04/05/19 19:53 3-5 HPF (0-5) 04/05/19 19:53 Ur Epithelial Cells Rare HPF (Negative) 04/05/19 19:53 Moderate amorphous HPF (Negative) 04/05/19 19:53 Moderate HPF (Negative) 04/05/19 19:53 0-2 hyaline LPF (Negative) 04/05/19 19:53 Moderate (Negative) 04/05/19 19:53 Rare renal (Negative) 04/05/19 19:53 Ur Culture Indicated? No 04/05/19 19:53 Negative mg/dL (Negative) 04/05/19 19:53 Salicylates 5.9 mg/dL (2.8-20.0) 04/05/19 19:20 Negative (Negative) 04/05/19 19:53 Negative (Negative) 04/05/19 19:53 Acetaminophen < 2 ug/mL (10-30) L 04/05/19 23:05 Ur Barbiturates Screen Negative (Negative) 04/05/19 19:53 Ur Tricyclics Screen Negative (Negative) 04/05/19 19:53 Ur Amphetamines Screen Positive (Negative) 04/05/19 19:53 U Benzodiazepines Scrn Positive (Negative) 04/05/19 19:53 Negative (Negative) 04/05/19 19:53 Ur THC Screen Negative (Negative) 04/05/19 19:53 Ethyl Alcohol < 3.0 mg/dL (<3) 04/05/19 19:20
[2019-04-06] MEDS: Pantoprazole 40 MG VIAL IVP (09:27)
[2019-04-06] MEDS: LORazepam 0.5 MG TAB PO (09:29)
[2019-04-06] MEDS: Normal Saline 1,000 ML 200 ML IV ×2 (09:33→15:04)
--- NOTE | 2019-04-06 10:05 | PHARADMIT ---
Admission Pharmacy Clinical Review OVERDOSE Code Status Full Code Current Weight 98.1 kg Renally Cleared and Narrow Therapeutic Index Meds CRCL ~104ML/MIN QTc Value / Action Taken 455 BP Control, Fever 130/65 AFEBRILE Electrolytes reviewed OK DVT Prophylaxis HEPARIN SUBQ Opiate Usage / Scheduled Bowel Regimen Ordered NO/PRN Plt/SCr for Heparin / Enoxaparin 274/1.02 INR for Warfarin NA H/H stable, WBC/Bands 14.6/42.8 WBC 11.09 Antibiotic appropriateness NA Cultures and Sensitivities NA Surgical ABX d/c within 24 hr NA DM control / Insulin Dosing NA Heart Failure (Check EF%) (RASTA's, B-Block, Diuretics) NA IV to PO Switch Home Meds Reviewed Home Meds Not Ordered calcium carbonate 500 mg CH PRN PRN ranitidine HCl 150 mg tablet 150 mg PO DAILY #60 tab atomoxetine 60 mg capsule 60 mg PO QHS cap gabapentin 800 mg tablet 800 mg PO TID #90 tab Comments
[2019-04-06 10:38] LABS: Bilirubin Negative (Negative); Blood Negative (Negative); Clarity Clear (Clear); Glucose Negative (Negative); Ketones Trace mg/dL (Negative); Leukocyte Esterase Negative (Negative); Nitrite Negative (Negative); Specific Gravity 1.025 (1.005-1.025); Urobilinogen 0.2 EU/dL (Up TO 0.2)
[2019-04-06 10:51] LABS: Bacteria Negative HPF (Negative); Crystals Negative HPF (Negative); Epithelial Cells Negative HPF (Negative); Mucus Trace (Negative); RBC 0-2 (0-2)
[2019-04-06 10:52] LABS: C & S Indicated? Yes; Casts 0-2 Coarse Granular LPF (Negative)
[2019-04-06] MEDS: Sucralfate 1 GM TAB PO (12:41)
--- NOTE | 2019-04-06 13:00 | NUR.NOTE ---
Nursing Note: 1258: pt arrives to room 208 ambulatory from ICU 222. pt alert/oriented. pt belongings sent with pt from ICU. pt has NS running at this time. pt oriented to call amaral/tv remote system. continue to monitor. pt has CPSO in place at this time.
--- NOTE | 2019-04-06 13:54 | NUR.NOTE ---
Nursing Note: RN wasn't able to do behavioral health assessment at 1300 due to mental health consult.
--- NOTE | 2019-04-06 15:01 | PDOC.CMIN ---
- If Service Date Differs Date of service: 04/06/19 Time of Service: 15:01 Care Management Initial Assess REASON FOR HOSPITALIZATION:: Overdose PAST MEDICAL HISTORY/PAST SURGICAL HISTORY:: Chronic persistant Anxiety, Depression, ADHD, OCD, Appendectomy, Hernia Repair, Current smoker, untreated PTSD per Pt report. PREVIOUS FUNCTIONAL STATUS/SOCIAL/FAMILY SUPPORTS:: Enio resides with his and three children in [place], [place]. Enio is independent in the community. He has a psychiatric provider and a therapist Gavino Lara. CURRENT FUNCTIONAL STATUS:: Enio is alert he does not want to engage in assessment however he is able to meet with mental health and he is willing to discuss the plan of care. his Mother is present when mental health arrives CM discussed with Enio having his mom leave the room while mental health meets with him. Enio denies suicidal or homicidal ideation. ADVANCE DIRECTIVES:: None on file, unable to complete at this time. Has patient been provided with information about the portal?: Yes Did the patient sign up for the portal?: No (already enrolled) CODE STATUS:: Full Code INSURANCE COVERAGE / FINANCIAL ISSUES:: Medicaid CURRENT HOME/COMMUNITY SERVICES/EQUIPMENT:: Outpatient psychiatric provider and Gavino Lara. PRIMARY CARE PHYSICIAN:: Polina Darby POTENTIAL DISCHARGE NEEDS:: Follow up with mental health provider, [facility] Crisis Mely is contacting therapist to schedule follow up and request outpatient. PATIENT/FAMILY EDUCATION NEEDS:: Discharge education, limitations and follow up plan of care. ANTICIPATED BARRIERS TO DISCHARGE:: Pending labs and medical clearence TRANSPORTATION:: Via private car with family when he is ready PLAN:: Enio is being monitored for medication overdose including labs and vital signs. [facility] met with the patient and provided assessment that he is not suicidal or homicidal. Enio has providers in the community and will allow Crisis to assist in follow up with both (see note in physcial chart). Enio will be discharged home with his family when he is medically ready.
[2019-04-06 17:28] LABS: Creatine Kinase 870 U/L (39-308)
--- NOTE | 2019-04-06 17:59 | NUR.NOTE ---
Two 45 caliper bullets were found by nursing in the patient's bag of clothes that his mother brought in. These were removed by me and given to the equal opportunity representative. There was also a pouch of sharp objects that were removed and given to the Med-road packer operator (Fiona Gale). Nursing Note:
== END 2019-04-06 18:59 | disposition left against medical advice (07) | DRG 918 ==
LOC: ER 04-06 00:08 → ICU 04-06 00:30 → MS 04-07 15:25
PROVIDERS: Admitting Provider Family Medicine; Emergency Provider Physician Assistant Medical; PCP Nurse Practitioner Adult Health; Visit Provider Internal Medicine
DX: T43.622A Poisoning by amphetamines, intentional self-harm, initial encounter (principal); R50.2 Drug induced fever; R00.0 Tachycardia, unspecified; I10 Essential (primary) hypertension; Z53.21 Procedure and treatment not carried out due to patient leaving prior to being seen by health care provider; R74.8 Abnormal levels of other serum enzymes; F19.10 Other psychoactive substance abuse, uncomplicated; F90.9 Attention-deficit hyperactivity disorder, unspecified type; F17.210 Nicotine dependence, cigarettes, uncomplicated
CPT/HCPCS: 36415; 36416; 80048; 80053; 80307; 82550; 82962; 85027; 93005; 96361; 96365; 96366; 99223; 99232; 99285; 70450; 71045; 80320; 80329; 81003; 81015; 83735; 84132; 84484; 85025; 87086; 93010; J3480

== ENCOUNTER 2019-04-09 17:40 | Emergency (ER) | payer MEDICAID, SELFPAY ==
[2019-04-09 17:43] VITALS: BP 156/94; PULSE 95; RESP 20; TEMP 36.8; O2SAT 99
[2019-04-09 18:15] LABS: Abs Immature Grans 0.01 k/cumm (0.0-0.09); Absolute Basophil Count 0.04 k/cumm (0.0-0.2); Absolute Lymphocyte Count 3.49 k/cumm (1.2-3.4); Absolute Monocyte Count 0.86 k/cumm (0.11-0.7); Absolute Neutrophil Count 4.34 k/cumm (1.2-6.7); Basophils % 0.4; Eosinophils % 8.4; HCT 47.3 % (40.0-50.0); HGB 16.4 g/dL (13.5-17.5); Immature Grans % 0.1; Lymphocytes % 36.6; Mean Corp. HGB Concentration 34.7 g/dL (32.0-36.0); Mean Corpuscular Hemoglobin 29.3 pg (27.0-33.0); Mean Corpuscular Volume 84.6 fL (80-95); Mean Platelet Volume 10.6 fL (8.0-11.0); Neutrophils % 45.5; Platelet Count 334 x1000/uL (130-400); RBC 5.59 m/cumm (4.50-6.00); RBC Distribution Width 13.1 % (11.8-14.1); White Blood Cell Count 9.54 k/cumm (4.4-10.8)
[2019-04-09 18:28] LABS: ALT 50 U/L (12-78); AST 23 U/L (15-37); Albumin 3.3 g/dL (3.4-5.0); Alkaline Phosphatase 85 U/L (46-116); Anion Gap 9.8 mmol/L (3-11); BUN 13 mg/dL (7-18); Bilirubin, Total 0.2 mg/dL (0.2-1.0); CO2 24.2 mmol/L (21.0-32.0); Calcium 8.9 mg/dL (8.5-10.1); Chloride 105 mmol/L (98-107); Glucose 94 mg/dL (70-100); Magnesium 1.9 mg/dL (1.8-2.4); Potassium 4.3 mmol/L (3.5-5.1); Sodium 139 mmol/L (136-145); Total Protein 6.8 g/dL (6.4-8.2); Troponin I < 0.05 ng/mL (0.00-0.06)
[2019-04-09 18:28] LABS: Bilirubin Negative (Negative); Blood Negative (Negative); Clarity Clear (Clear); Glucose Negative (Negative); Ketones Negative (Negative); Leukocyte Esterase Negative (Negative); Nitrite Negative (Negative); Urobilinogen 0.2 EU/dL (Up TO 0.2)
[2019-04-09 18:54] VITALS: RESP 20
[2019-04-09 19:50] VITALS: BP 133/90; PULSE 77; RESP 16; TEMP 37.2; O2SAT 98
--- NOTE | 2019-04-09 20:00 | W.ED.GENAD ---
Discharge Plan Disposition Patient Disposition: HOME Condition: Improving Discharge Details Chief Complaint: GenMedical Clinical Impression: Esophagitis with gastritis Primary Care Provider: Polina Darby ED Provider: Buster Moyer Home Meds and New Rx's Prescriptions: New ranitidine HCl [Zantac] 150 mg tablet 150 mg PO BID Qty: 30 RF: 0 Continued gabapentin 800 mg tablet 800 mg PO TID Qty: 90 RF: 11 No Action pantoprazole 40 mg tablet,delayed release (DR/EC) 40 mg PO DAILY Qty: 30 RF: 1 Discharge Instructions Instructions: Gastritis (ED) Additional Instructions: Return immediately to the emergency department for any new or significant worsening of symptoms, change in your symptoms, or any further concerns. Otherwise follow-up with your primary care provider next week for re-assessment and to ensure medication is helping you and possible arrangement for any further testing such as upper endoscopy as directed by general surgery office Referrals: Polina Darby, [employer] [Primary Care Provider] - 1 week (For reassessment and arrangement of any further outpatient testing) Discharge Data Discharge Date/Time-TO BE ENTERED AT DEPARTURE: 04/09/19 20:24 Medical Decision Making Patient presenting the emergency department for chief complaint of chest pain, and epigastric pain. He states that has been going on for the past week but over the past couple days he has not felt well and had some worsening sharp discomfort. Patient does have significant history for gastritis and GERD and is not been taking any medication to treat his symptoms. Physical exam is positive for very reproducible epigastric tenderness that patient describes a similar pain as what he is been experiencing. Doubt ACS but still plan to do EKG and labs. Pending results patient given GI cocktail and ranitidine. EKG reviewed with attending physician and shows sinus rhythm, rate of 82, no STEMI, nondiagnostic Labs are reviewed and show nondiagnostic CBC, CMP within normal limits, negative troponin, and no findings within UA. Patient reassessed after medications and stated improvement of his symptoms. Review of medical records shows patient has a long ongoing history with esophagitis and gastritis which he states upon talking to that the Protonix does not help. I recommended that patient continue on the Zantac. Given that this is been intermittent for 8 months and worsening over the past week I do not feel that any further work-up is needed given unremarkable lab work-up at this time. Do not feel that any imaging is warranted patient to follow-up with primary care provider for reassessment. Return precautions were discussed. HPI General Mode of arrival: ambulatory. Date/Time Provider Initiated Documentation: 04/09/19 17:56. Limitations to Documentation: no limitations. Information obtained by: patient and RN notes reviewed. History of Present Illness 33 year old M presents to the emergency department with the chief complaint of chest/epigastric pain, described as moderate and similar to prior episodes, with intensity rated at 5. Quality is described as aching, and is localized to the chest and abdomen. Patient started experiencing this week(s) (1) and it has been constant. Related Data Home Medications Medication Instructions Recorded Confirmed gabapentin 800 mg tablet 800 mg PO TID #90 tab 02/01/19 04/09/19 ranitidine HCl [Zantac] 150 mg PO BID #30 tab 04/09/19 pantoprazole 40 mg tablet,delayed 40 mg PO DAILY #30 tab 04/12/19 04/12/19 release Previous Rx's Medication Instructions Recorded gabapentin 800 mg tablet 800 mg PO TID #90 tab 02/01/19 ranitidine HCl [Zantac] 150 mg PO BID #30 tab 04/09/19 pantoprazole 40 mg tablet,delayed 40 mg PO DAILY #30 tab 04/12/19 release Allergies Allergy/AdvReac Type Severity Reaction Status Date / Time lisdexamfetamine dimesylate AdvReac Auditory Verified 04/12/19 10:52 [From Sylvia] Hallucination General Stated Complaint: GenMedical SLY: 3 Review of Systems Constitutional Denies chills, Denies fever(s) and Denies malaise Cardiovascular Reports as per HPI, Reports chest pain, Denies chest pain with activity, Denies syncope, Denies irregular heart rhythm, Denies palpitations and Denies dyspnea Respiratory Denies cough, Denies hemoptysis and Denies dyspnea Gastrointestinal Denies abdominal pain, Denies nausea and Denies vomiting Neurologic Denies syncope Psychiatric Denies anxiety Endocrine Denies cold intolerance, Denies heat intolerance and Denies palpitations [facility] Medical History Abdominal adhesions (Chronic 07/29/16) Acute appendicitis (Resolved ~05/2015) Depression (Chronic 03/12/17) Esophagitis with gastritis (Chronic) Family history of diabetes mellitus (Chronic 07/29/16) Inflammatory bowel diseases (IBD) (Ruled-out ~02/2018) Intentional self-harm by blunt object, initial encounter (Resolved 01/13/18) Intussusception intestine (Resolved ~02/2018) PTSD (post-traumatic stress disorder) (Chronic 03/12/17) Substance use disorder (Chronic 12/22/17) Tobacco use disorder (Chronic 07/29/16) Tubular adenoma of colon (Chronic 03/03/18) Surgical History Appendectomy (06/15/15) Colonoscopy - MAC (03/03/18) EGD - MAC (03/03/18) Laparotomy (12/05/17) Family History Mother Mental disorder Father Essential hypertension Ulcerative colitis Other Asthma Social History Smoking/Tobacco Use Status: Current every day Alcohol Intake: current Alcohol Intake frequency: a few times a month Alcohol type: beer Drug use: Never Substance use type: does not use Household members: spouse and children Housing: apartment Number of Children: 3 current occupation: cares for with [employer] Pets and animals: Yes (Dog) Sexually active: Yes Do you feel safe at home: Yes Do you feel safe in your relationship?: Yes Exam Const General: cooperative, healthy appearing, comfortable, no acute distress, not diaphoretic and not ill appearing Nutritional Appearance: average body habitus Orientation: alert, awake and oriented x3 Limitations: mental status not altered Neck Neck: normal visual inspection, full ROM, trachea midline, supple and no anterior neck swelling Thyroid: thyroid normal Carotids: normal carotid upstroke and no bruits Chest Chest: normal inspection of the chest Resp Effort & Inspection: normal respiratory effort and able to speak in complete sentences Auscultation: clear to auscultation bilaterally Cardio Jugular venous pressure: no JVD Palpation: normal PMI Rate: regular rate Rhythm: regular rhythm Heart Sounds: S1 normal, S2 normal, no click, no gallops, no murmurs and no rubs Bruits: no abdominal aortic bruits and no carotid bruits Pulses: radial pulses present bilaterally 2+ GI Inspection: normal to inspection Palpation: soft, no aortic enlargement, no pulsatile masses and tender in the epigastrum; not at McBurney's point, Ng's sign negative and Rovsing's sign negative Auscultation: normal bowel sounds Skin General skin exam: no rashes or lesions noted Neuro General: alert, awake, oriented x3, tone normal and moves all extremities Course Vital Signs Temperature 36.8 C 04/09/19 17:43 Pulse 95 H 04/09/19 17:43 Respiratory Rate 20 04/09/19 17:43 Blood Pressure 156/94 H 04/09/19 17:43 Pulse Oximetry 99 04/09/19 17:43 Temperature 37.2 C 04/09/19 19:50 Temperature Source Temporal Artery Scan 04/09/19 19:50 Pulse 77 04/09/19 19:50 Respiratory Rate 16 04/09/19 19:50 Respiratory Effort Non-Labored 04/09/19 17:43 Respiratory Depth Normal 04/09/19 18:54 Respiratory Pattern Normal 04/09/19 18:54 Blood Pressure 133/90 04/09/19 19:50 Blood Pressure Position Sitting 04/09/19 17:43 Pulse Oximetry 98 04/09/19 19:50 Oxygen Delivery Method Room Air 04/09/19 19:50 Oxygen Flow Rate 0 04/09/19 19:50 Pain Level 5 04/09/19 19:50 Lab/Test Results Lab/Test Results: Laboratory Tests Range/Units 04/09/19 04/09/19 04/09/19 17:55 17:55 18:03 WBC (4.4-10.8) k/cumm 9.54 RBC (4.50-6.00) m/cumm 5.59 Hgb (13.5-17.5) g/dL 16.4 Hct (40.0-50.0) % 47.3 MCV (80-95) fL 84.6 MCH (27.0-33.0) pg 29.3 MCHC (32.0-36.0) g/dL 34.7 RDW (11.8-14.1) % 13.1 Plt Count (130-400) x1000/uL 334 MPV (8.0-11.0) fL 10.6 Immature Gran % 0.1 Neutrophils % 45.5 Lymphocytes % 36.6 Monocytes % 9.0 Eosinophils % 8.4 Basophils % 0.4 Absolute Neutrophils (1.2-6.7) k/cumm 4.34 Absolute Lymphocytes (1.2-3.4) k/cumm 3.49 H Absolute Monocytes (0.11-0.7) k/cumm 0.86 H Absolute Eosinophils (0.0-0.7) k/cumm 0.80 H Absolute Basophils (0.0-0.2) k/cumm 0.04 Sodium (136-145) mmol/L 139 Potassium (3.5-5.1) mmol/L 4.3 Chloride (98-107) mmol/L 105 Carbon Dioxide (21.0-32.0) mmol/L 24.2 Anion Gap (3-11) mmol/L 9.8 BUN (7-18) mg/dL 13 Creatinine (0.70-1.30) mg/dL 1.00 Estimated GFR/1.73 m2 (mL/min/1.73m2) >= 60.00 Glucose (70-100) mg/dL 94 Calcium (8.5-10.1) mg/dL 8.9 Magnesium (1.8-2.4) mg/dL 1.9 Total Bilirubin (0.2-1.0) mg/dL 0.2 AST (15-37) U/L 23 ALT (12-78) U/L 50 Alkaline Phosphatase (46-116) U/L 85 Troponin I (0.00-0.06) ng/mL < 0.05 Total Protein (6.4-8.2) g/dL 6.8 Albumin (3.4-5.0) g/dL 3.3 L Urine Color (Yellow) Yellow Urine Clarity (Clear) Clear Urine pH (5-8) 7.0 Ur Specific [place] (1.005-1.025) 1.010 Urine Protein (Negative) mg/dL Negative Urine Ketones (Negative) mg/dL Negative Urine Blood (Negative) Negative Urine Nitrite (Negative) Negative Urine Bilirubin (Negative) Negative Urine Urobilinogen (Up TO 0.2) EU/dL 0.2 Ur Leukocyte Esterase (Negative) Negative Urine Glucose (Negative) mg/dL Negative
--- NOTE | 2019-04-10 03:18 | NUR.NOTE ---
FAEXED REFERAL TO ON 04/09/19Nursing Note:
== END 2019-04-09 20:24 | disposition home or self-care (01) ==
PROVIDERS: Emergency Provider Nurse Practitioner Family; PCP Nurse Practitioner Adult Health
DX: K20.9 Esophagitis, unspecified (principal); K29.70 Gastritis, unspecified, without bleeding
CPT/HCPCS: 36415; 80053; 93005; 99284; 81003; 83735; 84484; 85025; 93010

== ENCOUNTER 2019-05-20 08:40 | Emergency (ER) | payer MEDICAID, SELFPAY ==
[2019-05-20 08:50] VITALS: BP 111/77; PULSE 111; RESP 18; TEMP 37.7; O2SAT 98
--- NOTE | 2019-05-20 08:56 | ED.GENADUL_ITS ---
Discharge Plan Disposition Patient Disposition: HOME Condition: Good Discharge Details Chief Complaint: Fever Clinical Impression: Strep pharyngitis Primary Care Provider: Polina Darby ED Provider: Chase Alegria Home Meds and New Rx's Prescriptions: New penicillin V potassium 500 mg tablet 500 mg PO BID 10 Days Qty: 20 RF: 0 Continued pantoprazole 40 mg tablet,delayed release (DR/EC) 40 mg PO BID RF: 0 gabapentin 800 mg tablet 800 mg PO TID Qty: 90 RF: 11 ranitidine HCl 300 mg tablet 300 mg PO QHS RF: 0 Discharge Instructions Instructions: Strep Throat (ED) Additional Instructions: Take tylenol alternating with ibuprofen every 4-6 hours as needed for pain and fever. Rest and drink plenty of fluids. Return if not resolving in 5-7 days, sooner if worsens. Medical Decision Making Lab Data Lab results reviewed: Yes I reviewed the patient's lab results. EWELINA Steen is a 33-year-old gentleman with past medical history significant for irritable bowel syndrome, depression, self cutting, ADHD, presenting for evaluation of sore throat, fever, body aches, starting at 4a.m. today. In ED, he is afebrile but he did take antipyretic just before arrival. Denies dyspnea, drooling, inability to swallow, dysphonia, lethargy. No vomiting, no diarrhea. No known sick contacts. No foreign travel. General Date/Time Provider Initiated Documentation: 05/20/19 08:44 . Related Data Home Medications Medication Instructions Recorded Confirmed gabapentin 800 mg tablet 800 mg PO TID #90 tab 02/01/19 05/20/19 ranitidine HCl 300 mg tablet 300 mg PO QHS 05/13/19 05/20/19 pantoprazole 40 mg tablet,delayed 40 mg PO BID tab 05/14/19 05/20/19 release penicillin V potassium 500 mg PO BID 10 Days #20 tab 05/20/19 Previous Rx's Medication Instructions Recorded gabapentin 800 mg tablet 800 mg PO TID #90 tab 02/01/19 penicillin V potassium 500 mg PO BID 10 Days #20 tab 05/20/19 Allergies Allergy/AdvReac Type Severity Reaction Status Date / Time lisdexamfetamine dimesylate AdvReac Severe Auditory Verified 05/20/19 08:57 [From Vyvanse] Hallucination General SLY: 3 Review of Systems Constitutional Denies chills, Denies fatigue and Denies lethargy Eyes Denies loss of vision ENT Denies nasal congestion Cardiovascular Denies chest pain and Denies dyspnea Respiratory Denies cough and Denies dyspnea Gastrointestinal Denies abdominal pain, Denies nausea and Denies vomiting Musculoskeletal Denies muscle weakness and Denies numbness Integumentary/Breasts Denies rash Neurologic Denies focal weakness, Denies loss of vision and Denies numbness Endocrine Denies fatigue Hematologic/Lymphatic Denies easy bruising [facility] Medical History (Updated 05/14/19 @ 10:19 by Polina Darby NP) Abdominal adhesions (Chronic 07/29/16) Explor lap 2018 Acute appendicitis (Resolved ~05/2015) Depression (Chronic 03/12/17) Esophagitis with gastritis (Chronic) 02/2018 colonoscopy & upper EGD: severe reflux esophagitis with ulceration, gastritis, peptic duodenitis; neg H. Pylori, neg gluten sensitivity Abd pain better s/p course of H2 blockers [facility] GI consult 06/2018 Family history of diabetes mellitus (Chronic 07/29/16) Inflammatory bowel diseases (IBD) (Ruled-out ~02/2018) Not identified on 03/03/18 colonoscopy & upper EGD, so ruled-out Intentional amphetamine overdose (Inactive) 04/05/2019 Intentional self-harm by blunt object, initial encounter (Resolved 01/13/18) Cutting (arms/legs) Intussusception intestine (Resolved ~02/2018) Question of, not confirmed PTSD (post-traumatic stress disorder) (Chronic 03/12/17) Substance use disorder (Chronic 12/22/17) Tramadol ([facility] 2017) Vyvanse ([facility] 2015) Amphetamine OD ([facility] 04/05/2019) Tobacco use disorder (Chronic 07/29/16) Cigs 1PPD Tubular adenoma of colon (Chronic 03/03/18) Rectal polyp pathology 03/03/2018 Repeat colonoscopy 2022 Surgical History (Updated 05/14/19 @ 10:00 by Polina Darby NP) Appendectomy (06/15/15) Dr Holguin Colonoscopy - MAC (03/03/18) EGD - MAC (03/03/18) Laparotomy (12/05/17) Resolved intussuscepption, possible inflammatory bowel disease Social History Smoking/Tobacco Use Status: Current every day Tobacco: How many years used: 13 Quit status: not considering quitting Counseling given: patient declined Alcohol Intake: current Alcohol Intake frequency: holidays/special occasions only Alcohol type: beer Drug use: Never Substance use type: does not use Household members: spouse and children Housing: apartment Number of Children: 3 current occupation: cares for with [employer] Pets and animals: Yes (Dog) Sexually active: Yes Do you feel safe at home: Yes Do you feel safe in your relationship?: Yes Exam Const General: cooperative and no acute distress HENMT Head: normal to inspection Ears: hearing grossly normal bilaterally Teeth and gingiva: other (Tonsils enlarged, white exudate present, left greater than right. ) Throat: other (Uvula midline) Other: Tender anterior cervical adenopathy Eyes EOM: EOM intact bilaterally Neck Neck: normal visual inspection Resp Effort & Inspection: normal respiratory effort Auscultation: clear to auscultation bilaterally Cardio Rate: regular rate Rhythm: regular rhythm Heart Sounds: no murmurs GI Palpation: soft and nontender Skin General skin exam: no rashes or lesions noted Neuro General: alert, awake and oriented x3 Speech: speech normal Gait: normal gait Extrem General: normal to inspection Course Rapid strep positive. Reviewed antipyretics, and antibiotics, rest, fluids. He will return if worsens or not improving.
== END 2019-05-20 09:13 | disposition home or self-care (01) ==
PROVIDERS: Emergency Provider Physician Assistant Medical; PCP Nurse Practitioner Adult Health
DX: J02.0 Streptococcal pharyngitis (principal); F17.210 Nicotine dependence, cigarettes, uncomplicated
CPT/HCPCS: 87880; 99283

== ENCOUNTER 2019-06-26 21:27 | Emergency (ER) | payer MEDICAID, SELFPAY ==
[2019-06-26] VITALS (19 sets, daily range): BP systolic 132–153; BP diastolic 85–100; PULSE 88–118; RESP 8–27; TEMP 36.5; O2SAT 93–98
--- NOTE | 2019-06-26 21:51 | DI.RAD_ITS ---
EXAM: XR CHEST 2V PA LATERAL INDICATION: chest pain. COMPARISON: XR CHEST 1V IN DI DEPT from 04/05/2019 TECHNIQUE: 2D digital imaging was performed. FINDINGS: The lungs are well expanded and free of infiltrate. There is no pleural effusion, the cardiovascular structures are intact. IMPRESSION: No evidence of acute cardiopulmonary disease.
--- NOTE | 2019-06-26 21:53 | W.ED.GENAD ---
Discharge Plan Disposition Patient Disposition: HOME Condition: Improving Discharge Details Chief Complaint: Chest Pain Clinical Impression: Gastritis Primary Care Provider: Polina Darby ED Provider: Chris Turner Home Meds and New Rx's Prescriptions: Continued gabapentin 800 mg tablet 800 mg PO TID Qty: 90 RF: 11 Discharge Instructions Instructions: Gastritis (ED) Additional Instructions: Observe a bland diet for the next 2 to 3 days time. Avoid fatty, fried, spicy or acidic foods Follow-up with Polina Isbell if not improving in 3 to 5 days time. Return to the emergency department for any acute concerns Discharge Data Discharge Date/Time-TO BE ENTERED AT DEPARTURE: 06/27/19 01:30 Medical Decision Making <Buster Moyer NP - Last Filed: 06/27/19 18:11> Patient presenting to the emergency department for chief complaint of sharp chest pain. He states that this began around 2:00 this afternoon while he was playing with his children. Patient states he has been under a lot of stress recently initially thought it may have been a panic attack but he states typically with this panic attacks he does not have sharp chest pain. Patient denies any other injury or trauma, fever chills, heartburn or other associated symptoms. Patient does have significant history of anxiety, PTSD, GERD with esophagitis and gastritis. Physical exam is unremarkable nondiagnostic. His notation that patient is tachycardic and anxious on exam but otherwise unremarkable plan to do EKG, and labs along with give fluid and some Ativan and IV fluids to help with patient symptoms. Patient does have history of significant gastritis and GERD plan to give GI cocktail as well. After review of labs shows nondiagnostic CBC with mild nonspecific leukocytosis, negative d-dimer, very slightly low potassium at 3.4 and elevated anion gap and elevation of creatinine above patient's baseline otherwise nondiagnostic CMP, TSH within normal range, negative initial troponin. Patient reassessed and states some improvement but patient does continue to be tachycardic. Further discussing patient's habits he does state that he had some Vyvanse that was saved from an old prescription and due to significant family stressors recently that he had taken 1 tab 2 days ago but denies any use today. Patient does state that he drinks monster drinks on a normal basis as well. I do have concern for possible amphetamine abuse given patient stating significant social stressors and that he is use this in the past to help so this is at least considered along with the caffeine as possible source of sinus tachycardia. Plan to give additional fluids and Ativan pending repeat troponin. Patient also does report that he stopped his Zantac and Protonix because his gastritis symptoms improved. Plan to give Zantac to further help with any gastritis symptoms. Chest x-ray reviewed and is negative ECG Data Attestation: I personally reviewed and interpreted this ECG (s) as follows: Prior ECG tracings: available for review Interpretation: EKG reviewed with Dr. Turner. EKG shows sinus tachycardia, rate of 105, nonspecific T wave flattening in lead III and aVF, no STEMI, otherwise nondiagnostic and no significant change from EKG dated 04/09/2019 <Chris Turner MD - Last Filed: 06/27/19 01:24> Patient signed out to me by Mr. Moyer. Please see his note regarding details of the initial presentation, exam, plan of care. Repeat troponin was negative. Patient improved following 2 L of fluid, anxiolytic, GI cocktail. He is improved and stable for discharge home at this time. HPI <Buster Moyer NP - Last Filed: 06/27/19 18:11> General Mode of arrival: ambulatory. Date/Time Provider Initiated Documentation: 06/26/19 21:28. Limitations to Documentation: no limitations. Information obtained by: patient, RN notes reviewed and old records reviewed. History of Present Illness 33 year old M presents to the emergency department with the chief complaint of chest pain, described as severe, with intensity rated at 6. Quality is described as sharp, and is localized to the chest. Patient started experiencing this hour(s) (7) and it has been constant and colicky. No relieving factors improve symptom(s), No exacerbating factors reported . Patient did receive the following treatments prior to arrival, none Related Data Home Medications Medication Instructions Recorded Confirmed gabapentin 800 mg tablet 800 mg PO TID #90 tab 02/01/19 06/26/19 Previous Rx's Medication Instructions Recorded gabapentin 800 mg tablet 800 mg PO TID #90 tab 02/01/19 Allergies Allergy/AdvReac Type Severity Reaction Status Date / Time sertraline Allergy Unknown unspecified Verified 06/26/19 21:38 lisdexamfetamine dimesylate AdvReac Severe Auditory Verified 06/26/19 21:38 [From Vyvanse] Hallucination General Stated Complaint: Chest Pain SLY: 2 Review of Systems <Buster Moyer NP - Last Filed: 06/27/19 18:11> Constitutional Constitutional: Denies chills, Denies fever(s) and Denies malaise Cardiovascular Cardiovascular: Reports as per HPI, Reports chest pain, Denies chest pain with activity, Denies syncope, Reports rapid heart rate, Reports lightheadedness, Reports palpitations and Denies dyspnea Respiratory Respiratory: Denies cough, Denies hemoptysis and Denies dyspnea Gastrointestinal Gastrointestinal: Denies abdominal pain, Denies heartburn, Denies nausea and Denies vomiting Neurologic Neurologic: Denies syncope Psychiatric Psychiatric: Reports anxiety Endocrine Endocrine: Reports palpitations PFSH <Buster Moyer NP - Last Filed: 06/27/19 18:11> Medical History Abdominal adhesions (Chronic 07/29/16) Explor lap 2018 Acute appendicitis (Resolved ~05/2015) Depression (Chronic 03/12/17) Esophagitis with gastritis (Chronic) 02/2018 colonoscopy & upper EGD: severe reflux esophagitis with ulceration, gastritis, peptic duodenitis; neg H. Pylori, neg gluten sensitivity Abd pain better s/p course of H2 blockers [facility] [place] GI consult 06/2018 Family history of diabetes mellitus (Chronic 07/29/16) Inflammatory bowel diseases (IBD) (Ruled-out ~02/2018) Not identified on 03/03/18 colonoscopy & upper EGD, so ruled-out Intentional amphetamine overdose (Inactive) 04/05/2019 Intentional self-harm by blunt object, initial encounter (Resolved 01/13/18) Cutting (arms/legs) Intussusception intestine (Resolved ~02/2018) Question of, not confirmed PTSD (post-traumatic stress disorder) (Chronic 03/12/17) Substance use disorder (Chronic 12/22/17) Tramadol ([facility] 2017) Vyvanse ([facility] 2015) Amphetamine OD ([facility] 04/05/2019) Tobacco use disorder (Chronic 07/29/16) Cigs 1PPD Tubular adenoma of colon (Chronic 03/03/18) Rectal polyp pathology 03/03/2018 Repeat colonoscopy 2022 Surgical History Appendectomy (06/15/15) Dr Holguin Colonoscopy - MAC (03/03/18) EGD - MAC (03/03/18) Laparotomy (12/05/17) Resolved intussuscepption, possible inflammatory bowel disease Family History Mother Mental disorder Manic depression and bipolar Father Essential hypertension Ulcerative colitis Other Asthma Social History Smoking/Tobacco Use Status: Current every day Tobacco: How many years used: 13 Quit status: not considering quitting Counseling given: patient declined Alcohol Intake: current Alcohol Intake frequency: holidays/special occasions only Alcohol type: beer Drug use: Never Substance use type: does not use Household members: spouse and children Housing: apartment Number of Children: 3 current occupation: cares for with [employer] Pets and animals: Yes (Dog) Sexually active: Yes Do you feel safe at home: Yes Do you feel safe in your relationship?: Yes Exam <Buster Moyer NP - Last Filed: 06/27/19 18:11> Const General: cooperative, healthy appearing, comfortable, no acute distress, not diaphoretic and not ill appearing Nutritional Appearance: average body habitus Orientation: alert, awake and oriented x3 Limitations: mental status not altered Neck Neck: normal visual inspection, full ROM, trachea midline, supple and no anterior neck swelling Thyroid: thyroid normal Carotids: normal carotid upstroke and no bruits Chest Chest: normal inspection of the chest Resp Effort & Inspection: normal respiratory effort and able to speak in complete sentences Auscultation: clear to auscultation bilaterally Cardio Jugular venous pressure: no JVD Palpation: normal PMI Rate: regular rate Rhythm: regular rhythm Heart Sounds: S1 normal, S2 normal, no click, no gallops, no murmurs and no rubs Bruits: no abdominal aortic bruits and no carotid bruits Pulses: radial pulses present bilaterally 2+ GI Inspection: normal to inspection Palpation: soft, no aortic enlargement, no pulsatile masses and nontender Auscultation: normal bowel sounds Skin General skin exam: no rashes or lesions noted Neuro General: alert, awake, oriented x3, tone normal and moves all extremities Course <Buster Moyer NP - Last Filed: 06/27/19 18:11> Vital Signs Vital signs: Vital Signs Temperature 36.5 C 06/26/19 21:35 Pulse 116 H 06/26/19 21:35 Respiratory Rate 20 06/26/19 21:35 Blood Pressure 153/95 H 06/26/19 21:35 Pulse Oximetry 97 06/26/19 21:35 Temperature 36.5 C 06/26/19 21:35 Temperature Source Tympanic 06/26/19 21:35 Pulse 116 H 06/26/19 21:35 Respiratory Rate 20 06/26/19 21:35 Respiratory Effort Non-Labored 06/26/19 21:46 Respiratory Depth Normal 06/26/19 21:46 Respiratory Pattern Normal 06/26/19 21:46 Blood Pressure 153/95 H 06/26/19 21:35 Pulse Oximetry 97 06/26/19 21:35 Oxygen Delivery Method Room Air 06/26/19 21:35 Oxygen Flow Rate 0 06/26/19 21:35 Pain Level 6 06/26/19 21:35 Sign Out <Buster Moyer NP - Last Filed: 06/27/19 18:11> Sign Out Data: Sign Out Comment: Patient signed out to Dr. Chris Turner pending second troponin any further treatment and disposition Last updated by Buster Moyer NP at 06/26/19 23:48
[2019-06-26] MEDS: Normal Saline 1,000 ML 1000 ML IV (22:04)
[2019-06-26] MEDS: LORazepam 2 MG/ML VIAL 1 MG IVP (22:10)
[2019-06-26 22:13] LABS: Abs Immature Grans 0.01 k/cumm (0.0-0.09); Absolute Basophil Count 0.04 k/cumm (0.0-0.2); Absolute Eosinophil Count 0.44 k/cumm (0.0-0.7); Absolute Lymphocyte Count 3.14 k/cumm (1.2-3.4); Absolute Monocyte Count 1.09 k/cumm (0.11-0.7); Absolute Neutrophil Count 7.63 k/cumm (1.2-6.7); Basophils % 0.3; Eosinophils % 3.6; HCT 44.8 % (40.0-50.0); HGB 15.6 g/dL (13.5-17.5); Immature Grans % 0.1; Lymphocytes % 25.4; Mean Corp. HGB Concentration 34.8 g/dL (32.0-36.0); Mean Corpuscular Hemoglobin 29.6 pg (27.0-33.0); Mean Platelet Volume 10.1 fL (8.0-11.0); Monocytes % 8.8; Neutrophils % 61.8; Platelet Count 316 x1000/uL (130-400); RBC 5.27 m/cumm (4.50-6.00); RBC Distribution Width 13.8 % (11.8-14.1); White Blood Cell Count 12.35 k/cumm (4.4-10.8)
[2019-06-26 22:33] LABS: ALT 39 U/L (16-63); AST 30 U/L (15-37); Albumin 3.7 g/dL (3.4-5.0); Alkaline Phosphatase 85 U/L (46-116); Anion Gap 12.7 mmol/L (3-11); BUN 8 mg/dL (7-18); Bilirubin, Total 0.5 mg/dL (0.2-1.0); CO2 26.3 mmol/L (21.0-32.0); CREATININE 1.34 mg/dL (0.70-1.30); Calcium 9.4 mg/dL (8.5-10.1); Chloride 101 mmol/L (98-107); Glucose 98 mg/dL (70-100); Potassium 3.4 mmol/L (3.5-5.1); Sodium 140 mmol/L (136-145); Total Protein 7.8 g/dL (6.4-8.2)
[2019-06-26 22:34] LABS: Troponin I < 0.05 ng/mL (0.00-0.06)
[2019-06-26 22:37] LABS: TSH (W/Ref FT4) 1.32 uIU/mL (0.36-3.74)
[2019-06-26 22:50] LABS: D-Dimer 145 ng/mlFEU (<500)
[2019-06-26] MEDS: Lactated Ringers 1,000 ML 1000 ML IV (23:31)
[2019-06-26] MEDS: LORazepam 2 MG/ML VIAL 0.5 MG IVP (23:31)
--- NOTE | 2019-06-26 23:32 | DI.VRAD_ITS ---
PROCEDURE INFORMATION: Exam: XR Chest, 2 Views Exam date and time: 06/26/2019 23:10 Clinical history: 33 years old, male; Chest pain; Type not specified TECHNIQUE: Imaging protocol: XR of the chest Views: 2 views. COMPARISON: [place] XR CHEST 1V IN DI DEPT 04/05/2019 19:35 FINDINGS: Lungs: No consolidation. Pleural space: No pleural effusion. No pneumothorax. Heart/Mediastinum: No cardiomegaly. Bones/joints: No acute fracture. IMPRESSION: No acute findings. Dictated and Authenticated by: Bree Bird MD. Ordering:IJEOMA Goins MD
[2019-06-27] VITALS (12 sets, daily range): BP systolic 102–149; BP diastolic 77–84; PULSE 100–131; RESP 13–21; O2SAT 94–98
[2019-06-27 01:11] LABS: Troponin I < 0.05 ng/mL (0.00-0.06)
== END 2019-06-27 01:30 | disposition home or self-care (01) ==
PROVIDERS: Nurse Practitioner Family; Emergency Provider Emergency Medicine; PCP Nurse Practitioner Adult Health
DX: K29.00 Acute gastritis without bleeding (principal)
CPT/HCPCS: 80053; 93005; 96361; 96374; 96376; 99285; 71046; 83735; 84443; 84484; 85025; 85379; 93010; 99284; J2060

== ENCOUNTER 2019-10-27 11:52 | Outpatient (CLI) | payer MEDICAID, SELFPAY ==
--- NOTE | 2019-10-27 10:25 | DI.RAD_ITS ---
EXAM: XR SHOULDER RT COMPLETE 2+V INDICATION: Pain. COMPARISON: LEFT SHOULDER COMPLETE from 12/12/2009 TECHNIQUE: 2D digital imaging was performed. FINDINGS: No bone or joint abnormality is identified. The soft tissues are unremarkable.
== END 2019-10-27 12:12 ==
PROVIDERS: PCP Nurse Practitioner Adult Health; Visit Provider Student in an Organized Health Care Education/Training Program
DX: M25.511 Pain in right shoulder (principal)
CPT/HCPCS: 73030

== ENCOUNTER 2019-11-14 10:03 | Emergency (ER) | payer MEDICAID, SELFPAY ==
[2019-11-14 10:08] VITALS: BP 160/103; PULSE 107; RESP 20; TEMP 37.2; O2SAT 99
--- NOTE | 2019-11-14 10:56 | W.ED.GENAD ---
Discharge Plan Disposition Patient Disposition: HOME Condition: Stable Discharge Details Chief Complaint: GenMedical Clinical Impression: Overdose Primary Care Provider: Polina Darby ED Provider: Aury Catalan Home Meds and New Rx's Prescriptions: No Action gabapentin 800 mg tablet 800 mg PO TID Qty: 90 RF: 11 sucralfate [Carafate] 1 gram tablet 1 gm PO QACHS Qty: 120 RF: 0 ranitidine HCl 300 mg tablet 300 mg PO QHS RF: 0 Discharge Instructions Additional Instructions: Stop taking Adderall. Use only her prescribed daily medications as directed. Please follow-up with cost recovery technician as discussed. Drink plenty of fluids. Eat a healthy diet. Follow-up with your primary care doctor as well as mental health as an outpatient. Return for any worsening, concerns or alarming symptoms sooner if needed. You refuse any additional IV fluid, you refuse repeat of your labs and are aware of the risks of refusing these recommended tests and treatments. Return for concerns or if desired Discharge Data Discharge Date/Time-TO BE ENTERED AT DEPARTURE: 11/14/19 14:57 Medical Decision Making Is a 33-year-old patient presenting for concerns of taking too much Adderall. Patient reports he took 220 mg of Adderall in the last 24 hours. Last ingestion of Adderall at 7:00 PM yesterday. Patient reports he has not slept in days. 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 Patient reports he feels anxious, clammy has mild chest pain. Feels palms are sweating. Patient reports that he is concerned he too much. Patient denies any coingestions. Patient reports he did not take this medication in attempt to harm himself. Denies suicidality or homicidality. Denies any psychologic concerns at this time does report he has baseline anxiety however takes gabapentin which does easily control his anxiety and he does not feel he needs any mental health evaluation at this time. Patient denies any other associated concerns. Patient's initial EKG reveals a heart rate of 87. Sinus rhythm. Normal intervals. With no ST segment changes. This was reviewed with Chris Turner. Discussed with poison control. Poison control recommends use of benzo for symptomatic relief in addition to period of observation. Recommended check CK in addition to labs previously ordered. Patient received 1 L of IV fluid. Labs reviewed. Mild elevation of CK is present. Patient has no evidence of rhabdomyolysis at this time. Initial troponin negative. Patient after receiving benzodiazepine feels significantly improved. Patient reports he has no persistence of chest pain, clamminess, anxiety. Patient's initial vital signs are significantly improved at this time. track and field coach evaluated patient in the emergency room. Patient consents to beginning relationship with cost recovery technician Due to drug use. Patient reports a strong desire to discontinue use of Adderall. Given patient significant improvement he is requesting discharge home at this time. Patient advised to stay in the ER for repeat labs and to complete a course of observation. Patient declines any further evaluation in the emergency room. Patient request discharge home at this time. I recommended that patient stay for completion of his evaluation as he assumes risk of potential missed cardiac injury without completing a second troponin my preference was to repeat labs. Patient reports his understanding of this years risk and does not want to stay any further. Patient is competent at this time to make this decision. Patient continues to report no suicidal ideation or homicidal ideation. The patient was stable and requested discharge. Prior to discharge, my usual and customary return precautions were reviewed with the patient - this included follow-up instructions and reasons to return to the Emergency Department if conditions worsens, does not improve as expected, or other new concerns arise. HPI General Date/Time Provider Initiated Documentation: 11/14/19 10:21. HPI Narrative: Is a 33-year-old patient presenting to the emergency room for complaints of taking too much Adderall. Patient reports he took approximately 220 mg in the last 24 hours. Patient reports his last dose was 7:00 PM last night. This medication is not prescribed for this patient. 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 Patient reports that he has not slept in the last 2-1/2 days. Patient reports at this time he feels he is taken too much. He is reporting anxiety, chest pain, weakness and blurred vision. Patient reports feeling mildly agitated. Patient denies any concurrent drug use. Denies any use of alcohol. Patient denies back pain. Denies abdominal pain, nausea, vomiting. Patient reports he does feel like his heart is racing. Patient is also reporting feeling dehydrated. Denies bowel changes or urinary changes. No other concerns or complaints at this time. Patient denies taking this medication in attempts to kill himself. Denies suicidal or homicidal ideation. Related Data Home Medications Medication Instructions Recorded Confirmed gabapentin 800 mg tablet 800 mg PO TID #90 tab 02/01/19 11/14/19 sucralfate 1 gram tablet 1 gm PO QACHS #120 tab 07/05/19 11/14/19 ranitidine HCl 300 mg tablet 300 mg PO QHS 07/06/19 11/14/19 Previous Rx's Medication Instructions Recorded gabapentin 800 mg tablet 800 mg PO TID #90 tab 02/01/19 sucralfate 1 gram tablet 1 gm PO QACHS #120 tab 07/05/19 Allergies Allergy/AdvReac Type Severity Reaction Status Date / Time sertraline Allergy Severe anger Verified 10/27/19 10:00 lisdexamfetamine dimesylate AdvReac Severe Auditory Verified 10/27/19 10:00 [From Sylvia] Hallucination General Stated Complaint: GenMedical SLY: 3 Review of Systems All systems reviewed & are unremarkable except as noted in HPI and below Constitutional Constitutional: Denies chills, Denies fatigue, Denies fever(s), Reports headache(s) and Denies malaise ENT Ears, Nose, Mouth, and Throat: Denies dizziness, Reports headache(s), Denies sinus pain and Denies sinus pressure Cardiovascular Cardiovascular: Reports chest pain, Reports diaphoresis, Denies syncope, Reports rapid heart rate, Reports lightheadedness, Denies radiating jaw, neck or arm pain, Reports palpitations, Denies dyspnea and Denies dyspnea on exertion Respiratory Respiratory: Denies cough, Denies dyspnea and Denies dyspnea on exertion Gastrointestinal Gastrointestinal: Denies abdominal pain, Denies diarrhea, Denies nausea and Denies vomiting Genitourinary Genitourinary: Denies hematuria and Denies dysuria Neurologic Neurologic: Denies dizziness, Denies syncope and Reports headache(s) Psychiatric Psychiatric: Reports anxiety, Denies auditory hallucinations, Denies hallucinations, Denies homicidal ideation and Denies suicidal ideation Endocrine Endocrine: Denies fatigue and Reports palpitations [facility] Medical History Abdominal adhesions (Chronic 07/29/16) Explor lap 2018 Acute appendicitis (Resolved ~05/2015) Depression (Chronic 03/12/17) Esophagitis with gastritis (Chronic) 02/2018 colonoscopy & upper EGD: severe reflux esophagitis with ulceration, gastritis, peptic duodenitis; neg H. Pylori, neg gluten sensitivity Abd pain better s/p course of H2 blockers [facility] [place] consult 06/2018 Family history of diabetes mellitus (Chronic 07/29/16) Inflammatory bowel diseases (IBD) (Ruled-out ~02/2018) Not identified on 03/03/18 colonoscopy & upper EGD, so ruled-out Intentional amphetamine overdose (Inactive) 04/05/2019 Intentional self-harm by blunt object, initial encounter (Resolved 01/13/18) Cutting (arms/legs) Intussusception intestine (Resolved ~02/2018) Question of, not confirmed PTSD (post-traumatic stress disorder) (Chronic 03/12/17) Substance use disorder (Chronic 12/22/17) Tramadol ([facility] 2017) Vyvanse ([facility] 2015) Amphetamine OD ([facility] 04/05/2019) Tobacco use disorder (Chronic 07/29/16) Cigs 1PPD Tubular adenoma of colon (Chronic 03/03/18) Rectal polyp pathology 03/03/2018 Repeat colonoscopy 2022 Social History Smoking/Tobacco Use Status: Current every day Tobacco: How many years used: 13 Quit status: not considering quitting Counseling given: patient declined Alcohol Intake: current Alcohol Intake frequency: holidays/special occasions only Alcohol type: beer Drug use: Never Substance use type: does not use Household members: spouse and children Housing: apartment Number of Children: 3 current occupation: cares for with [employer] Pets and animals: Yes (Dog) Sexually active: Yes Current gender identity: male Do you feel safe at home: Yes Do you feel safe in your relationship?: Yes Exam Narrative Exam Narrative: CONST: Anxious. Alert and oriented. HENMT: Head nomocephalic, normal to inspection. Atraumatic. Hearing grossly normal. External ear canal no erythema or swelling. TM normal bilaterally. Nose normal to inspection. No rhinnorhea. Normal facial exam. Oral mucosa normal. Tounge normal. Dentition normal. Normal posterior oropharynx. Uvula midline. EYES: General normal appearance. Alignment normal. Eyelids normal. Conjunctiva normal. Sclera normal. PERRL. NECK: Normal visual inspection. FROM. No lymphadenopathy. Trachea midline. No Midline tenderness. CHEST: Normal insepection of the chest. RESP: Normal respiratory effort. Speaking full sentences. No cough. No wheezing. No retractions. Clear to auscaltation. Breath sound equal and present bilaterally. CARDIO: No JVD. Normal PMI. Tachycardic rate. Regular Rhythm. Normal peripheral pulses. GI: Normal inspection of abdomen. No distension. Soft. Nontender. Bowel sounds present in all 4 quadrants. No rebound. No gaurding. MUSCULOSKELETAL: Normal Gait. FROM of all extremities. Distal neurovascularly intact. Sensation intact distally. SKIN: Normal. Clammy. No rashes. NEURO: Alert and awake. Speech clear. PSYCH: Normal affect. Cooperative. Course Vital Signs Vital signs: Vital Signs Pulse 107 H 11/14/19 10:08 Respiratory Rate 11/14/19 10:08 Blood Pressure 160/103 H 11/14/19 10:08 Pulse Oximetry 99 11/14/19 10:08 Pulse 107 H 11/14/19 10:08 Respiratory Rate 20 11/14/19 10:08 Respiratory Effort 11/14/19 10:12 Blood Pressure 160/103 H 11/14/19 10:08 Blood Pressure Position Sitting 11/14/19 10:08 Pulse Oximetry 99 11/14/19 10:08 Oxygen Delivery Method Room Air 11/14/19 10:08 Oxygen Flow Rate 0 11/14/19 10:08
[2019-11-14] MEDS: Normal Saline 1,000 ML 1000 ML IV (11:15)
[2019-11-14] MEDS: LORazepam 2 MG/ML VIAL 1 MG IVP (11:23)
[2019-11-14 11:24] VITALS: RESP 20
[2019-11-14 11:49] LABS: *AMPHETAMINES SCREEN URINE POSITIVE (Negative); *BARBITURATES SCREEN URINE Negative (Negative); *BENZODIAZEPINES SCREEN URINE Negative (Negative); Cannabinoids THC Negative (Negative); Cocaine Screen,Urine Negative (Negative); METHADONE URINE SCREEN Negative (Negative); OPIATES URINE SCREEN Negative (Negative)
[2019-11-14 11:53] LABS: Tricyclic Antidepressants Negative (Negative)
[2019-11-14 11:55] LABS: Abs Immature Grans 0.02 k/cumm (0.0-0.09); Absolute Basophil Count 0.03 k/cumm (0.0-0.2); Absolute Eosinophil Count 0.55 k/cumm (0.0-0.7); Absolute Lymphocyte Count 2.48 k/cumm (1.2-3.4); Absolute Monocyte Count 0.74 k/cumm (0.11-0.7); Absolute Neutrophil Count 5.11 k/cumm (1.2-6.7); Basophils % 0.3; Eosinophils % 6.2; HCT 45.7 % (40.0-50.0); HGB 15.9 g/dL (13.5-17.5); Immature Grans % 0.2 %; Lymphocytes % 27.8; Mean Corp. HGB Concentration 34.8 g/dL (32.0-36.0); Mean Corpuscular Hemoglobin 29.5 pg (27.0-33.0); Mean Corpuscular Volume 84.8 fL (80-95); Mean Platelet Volume 10.4 fL (8.0-11.0); Monocytes % 8.3; Neutrophils % 57.2; Platelet Count 317 x1000/uL (130-400); RBC 5.39 m/cumm (4.50-6.00); RBC Distribution Width 13.2 % (11.8-14.1); White Blood Cell Count 8.93 k/cumm (4.4-10.8)
[2019-11-14 11:57] LABS: Creatine Kinase 467 U/L (39-308)
[2019-11-14 11:58] LABS: ALT 53 U/L (16-63); AST 38 U/L (15-37); Albumin 3.8 g/dL (3.4-5.0); Alkaline Phosphatase 80 U/L (46-116); Anion Gap 6.9 mmol/L (3-11); BUN 13 mg/dL (7-18); Bilirubin, Total 0.3 mg/dL (0.2-1.0); CO2 29.1 mmol/L (21.0-32.0); Calcium 9.1 mg/dL (8.5-10.1); Chloride 104 mmol/L (98-107); Glucose 93 mg/dL (74-106); Potassium 4.2 mmol/L (3.5-5.1); Sodium 140 mmol/L (136-145); Total Protein 7.2 g/dL (6.4-8.2)
[2019-11-14 12:04] LABS: Troponin I < 0.05 ng/Ml (<0.06)
[2019-11-14 13:14] LABS: ESR 6 mm/hr (0-15)
[2019-11-14 13:53] VITALS: BP 141/78; PULSE 75; TEMP 37.1; O2SAT 98
[2019-11-14 14:21] VITALS: BP 122/77; PULSE 86; RESP 16; TEMP 37; O2SAT 98
[2019-11-14 14:38] VITALS: BP 122/77; PULSE 86; RESP 16; TEMP 37; O2SAT 98
== END 2019-11-14 14:57 | disposition home or self-care (01) ==
PROVIDERS: Emergency Provider Physician Assistant; PCP Nurse Practitioner Adult Health
DX: T43.621A Poisoning by amphetamines, accidental (unintentional), initial encounter (principal)
CPT/HCPCS: 80053; 80307; 82550; 85652; 93005; 96361; 96374; 99284; 84484; 85025; 93010; 99283; J2060

== ENCOUNTER 2020-01-31 18:24 | Observation (INO) | payer MEDICAID, SELFPAY ==
[2020-01-31] VITALS (29 sets, daily range): BP systolic 164; BP diastolic 104; PULSE 80–116; RESP 12–31; TEMP 37.5; O2SAT 92–100
[2020-01-31] MEDS: LORazepam 2 MG/ML VIAL 1 MG IVP (19:00)
[2020-01-31 19:17] LABS: Abs Immature Grans 0.01 k/cumm (0.0-0.09); Absolute Basophil Count 0.02 k/cumm (0.0-0.2); Absolute Eosinophil Count 0.15 k/cumm (0.0-0.7); Absolute Lymphocyte Count 2.07 k/cumm (1.2-3.4); Absolute Monocyte Count 0.52 k/cumm (0.11-0.7); Absolute Neutrophil Count 8.49 k/cumm (1.2-6.7); Basophils % 0.2; Eosinophils % 1.3; HCT 50.2 % (40.0-50.0); HGB 17.6 g/dL (13.5-17.5); Immature Grans % 0.1 %; Lymphocytes % 18.4; Mean Corp. HGB Concentration 35.1 g/dL (32.0-36.0); Mean Corpuscular Hemoglobin 29.1 pg (27.0-33.0); Mean Platelet Volume 10.3 fL (8.0-11.0); Monocytes % 4.6; Neutrophils % 75.4; Platelet Count 398 x1000/uL (130-400); RBC 6.05 m/cumm (4.50-6.00); RBC Distribution Width 13.5 % (11.8-14.1); White Blood Cell Count 11.26 k/cumm (4.4-10.8)
[2020-01-31 19:28] LABS: ALT 37 U/L (16-63); AST 20 U/L (15-37); Albumin 4.2 g/dL (3.4-5.0); Alkaline Phosphatase 91 U/L (46-116); Anion Gap 10.3 mmol/L (3-11); BUN 10 mg/dL (7-18); Bilirubin, Total 0.4 mg/dL (0.2-1.0); CO2 26.7 mmol/L (21.0-32.0); CREATININE 1.33 mg/dL (0.70-1.30); Calcium 9.6 mg/dL (8.5-10.1); Chloride 99 mmol/L (98-107); Glucose 116 mg/dL (74-106); Potassium 3.1 mmol/L (3.5-5.1); Sodium 136 mmol/L (136-145); Total Protein 8.4 g/dL (6.4-8.2)
[2020-01-31] MEDS: Normal Saline 1,000 ML 1000 ML IV (19:31)
[2020-01-31] MEDS: Haloperidol 5 MG/ML VIAL IV (19:32)
[2020-01-31 19:33] LABS: Bilirubin Negative (Negative); Blood Negative (Negative); Clarity Clear (Clear); Glucose Negative (Negative); Ketones Negative (Negative); Leukocyte Esterase Negative (Negative); Nitrite Negative (Negative); Specific Gravity 1.015 (1.005-1.025); Urobilinogen 0.2 EU/dL (Up TO 0.2)
[2020-01-31 19:38] LABS: Diff Comment Agrees w/ Instrument; RBC Morphology Normal
[2020-01-31 19:48] LABS: *AMPHETAMINES SCREEN URINE Negative (Negative); *BARBITURATES SCREEN URINE Negative (Negative); *BENZODIAZEPINES SCREEN URINE Negative (Negative); Cannabinoids THC Negative (Negative); Cocaine Screen,Urine Negative (Negative); METHADONE URINE SCREEN Negative (Negative); OPIATES URINE SCREEN Negative (Negative); Tricyclic Antidepressants Negative (Negative)
--- NOTE | 2020-01-31 20:32 | ED.GENADUL_ITS ---
Discharge Plan Disposition Patient Disposition: [facility] INPATIENT Condition: Good Discharge Details Chief Complaint: PsychEval Clinical Impression: Auditory hallucinations Admit Date/Time: 02/01/20 00:47 Admit Provider: Giovanni Mcmillan Attending Provider: Giovanni Mcmillan Primary Care Provider: Polina Darby ED Provider: Aury Catalan Hospital Course Hospital Course: Mr Escamilla is a 34 year old male with PMHx of depression, PTSD, ADHD, and history of ongoing auditory hallucinations, who was observed on hospitalist service at [facility] On 02/01/2020 having presented here with auditory hallucinations without SI/HI. He was medically cleared, evaluated by mental health and deemed appropriate for a voluntary psychiatric hospitalization for medication management. However, the patient was not willing to stay until his COVID-19 screening test came back negative prior to being placed and left AMA. Discharge Instructions Referrals: Denice Ceballos [Emergency Nurse] - Polina Darby, BEAUTY ADVISOR [Primary Care Provider] - Discharge Data Discharge Date/Time-TO BE ENTERED AT DEPARTURE: 02/01/20 01:30 Medical Decision Making <JEIMY Childs - Last Filed: 02/01/20 20:27> Is a 34-year-old voluntary patient presenting to the emergency room for concerns of auditory hallucinations which are present in the last 2 weeks. After further discussion this patient describes multiple voices which are recognizable some unrecognizable. Patient reports the sound of ambient noise such as a fan in addition. Patient denies any visual hallucinations. Patient is feeling extremely anxious and panicky at this moment. Patient reports admissions for similar auditory hallucinations in the past. Patient reports in the past he began to hear voices, voluntarily came to the hospital and required admission to stabilize. Patient denies any obvious safety risk. He denies suicidality or homicidality. Patient reports compliance with his daily medications. No recent change. Patient denies any recreational drug abuse however does report taking 2 Adderall today. Patient reports using gabapentin daily which is prescribed. Patient denies any new headaches. He does describe mild dizziness. Patient denies any new injury or trauma. Patient denies fevers or chills. No new cough, difficulty breathing or shortness of breath. Denies abdominal pain, nausea, vomiting. Eating and drinking without difficulty. Patient does report some difficulty sleeping. Patient did reach out to mental health community prior to arrival. Patient does feel he likely needs to be admitted to the hospital at this time. On physical exam patient's vital signs are noted to be moderately tachycardic and mildly hypertensive. Afebrile patient with no obvious increase in respiratory effort although he does have a peer somewhat distressed and extremely anxious. Patient's breath sounds are clear, abdominal exam is benign. Given patient's initial presentation Ativan as provided due to his extreme anxiety. Ativan on relieving of patient's symptoms. Haldol provided for additional relief as patient is describing an increase in hearing voices in clearly appears distressed due to this. Patient resting very comfortably in the bed after Haldol. Spoke with mental [facility] regarding patient's presentation. They will evaluate patient when patient is comfortable with this. Patient is not an imminent safety risk. They will plan to initiate placement as patient likely will require placement based on their own conversation in the community. Labs do reveal a mild leukocytosis although patient is extremely stressed on arrival. Patient's potassium noted to be 3.1. Will replace orally. Patient's urinalysis unremarkable for infection. Urine drug screen normal. Mental [facility] agrees with plan of admission. They plan to admit to [place]. Patient requires Covid testing prior to admission. Covid testing ordered. Patient signed out to Dr. Fajardo <Vin Fajardo DO - Last Filed: 02/01/20 00:53> Discussed the case with Dr. Mcmillan, he agrees with the assessment and plan. [facility] Patient remains notably stable. Dr. Mcmillan has requested that I place admission orders/bridging orders. I have extensively reviewed the treatment plan with the patient. I have addressed all patient concerns at this time. I have also discussed the plan with the admitting physician and they agree with the current assessment and plan and have agreed to assume responsibility for the patient. All parties demonstrate verbal understanding and agreement with our assessment and plan at this time. HPI <JEIMY Childs - Last Filed: 02/01/20 20:27> General Date/Time Provider Initiated Documentation: 01/31/20 18:42 . HPI Narrative: Is a 34-year-old patient presenting to the emergency room for complaints of auditory hallucination. Patient appears extremely anxious on arrival to the emergency room. Patient reports feeling quite anxious. Patient reports compliance with his daily medications. Patient does report he took 2 Adderall today which were not prescribed to him. Patient denies suicidality or ho micidality. Patient reports onset of auditory hallucinations over the last 2 weeks. Patient is unable to describe further correct characteristics. Later I was able to elicit that the patient reports multiple voices he can hear some recognizable some unrecognizable some described as a sound of a fan. Patient does have a mental health history pertinent for admissions for auditory hallucination in the past. Patient denies any head injury or trauma recently. Patient denies any headaches. Patient does report feeling somewhat dizzy today which is improved at this time. Patient denies any vision change. Patient denies any chest pain, difficulty breathing or shortness of breath or wheezing. Patient denies abdominal complaints. Has been eating and drink without difficulty. Patient denies any paresthesia. Denies any drug or alcohol use. Patient does report this is similar to what he is experienced in the past. Related Data Home Medications Medication Instructions Recorded Confirmed gabapentin 800 mg tablet 800 mg PO TID #90 tab 02/01/19 01/31/20 sucralfate 1 gram tablet 1 gm PO QACHS #120 tab 07/05/19 11/15/19 ranitidine HCl 300 mg tablet 300 mg PO QHS 07/06/19 11/15/19 Previous Rx's Medication Instructions Recorded gabapentin 800 mg tablet 800 mg PO TID #90 tab 02/01/19 sucralfate 1 gram tablet 1 gm PO QACHS #120 tab 07/05/19 Allergies Allergy/AdvReac Type Severity Reaction Status Date / Time lisdexamfetamine dimesylate AdvReac Severe Auditory Verified 01/31/20 18:46 [From Sylvia] Hallucination sertraline AdvReac Severe anger Verified 01/31/20 18:46 General Stated Complaint: PsychEval SLY: 2 Review of Systems <JEIMY Childs - Last Filed: 02/01/20 20:27> All systems reviewed & are unremarkable except as noted in HPI and below Constitutional Constitutional: Denies chills, Denies fatigue and Denies fever(s) Gastrointestinal Gastrointestinal: Denies abdominal pain, Denies diarrhea, Denies nausea and Denies vomiting Psychiatric Psychiatric: Reports anxiety, Reports difficulty concentrating, Reports panic attacks, Denies visual hallucinations, Denies tactile hallucinations and Denies homicidal ideation Endocrine Endocrine: Denies fatigue [facility] <JEIMY Childs - Last Filed: 02/01/20 20:27> Medical History Abdominal adhesions (Chronic 07/29/16) Explor lap 2018 Acute appendicitis (Resolved ~05/2015) Depression (Chronic 03/12/17) Esophagitis with gastritis (Chronic) 02/2018 colonoscopy & upper EGD: severe reflux esophagitis with ulceration, gastritis, peptic duodenitis; neg H. Pylori, neg gluten sensitivity Abd pain better s/p course of H2 blockers [facility] consult 06/2018 Family history of diabetes mellitus (Chronic 07/29/16) Inflammatory bowel diseases (IBD) (Ruled-out ~02/2018) Not identified on 03/03/18 colonoscopy & upper EGD, so ruled-out Intentional amphetamine overdose (Inactive) 04/05/2019 Intentional self-harm by blunt object, initial encounter (Resolved 01/13/18) Cutting (arms/legs) Intussusception intestine (Resolved ~02/2018) Question of, not confirmed PTSD (post-traumatic stress disorder) (Chronic 03/12/17) Substance use disorder (Chronic 12/22/17) Tramadol ([facility] 2017) Vyvanse ([facility] 2015) Amphetamine OD ([facility] 04/05/2019) Amphetamine OD (10/2019, [facility]) Tobacco use disorder (Chronic 07/29/16) Cigs 1PPD Tubular adenoma of colon (Chronic 03/03/18) Rectal polyp pathology 03/03/2018 Repeat colonoscopy 2022 Surgical History Appendectomy (06/15/15) Dr Holguin Colonoscopy - MAC (03/03/18) EGD - MAC (03/03/18) Laparotomy (12/05/17) Resolved intussuscepption, possible inflammatory bowel disease Social History Smoking/Tobacco Use Status: Current every day Tobacco Type: cigarettes Tobacco: How many years used: 13 Quit status: not considering quitting Counseling given: patient declined Alcohol Intake: current Alcohol Intake frequency: holidays/special occasions only Alcohol type: beer Drug use: Never Substance use type: does not use Household members: spouse and children Housing: apartment Number of Children: 3 current occupation: cares for with [employer] Pets and animals: Yes (Dog) Sexually active: Yes Current gender identity: male Additional Social history: pt is not able to answer the safety question Exam <JEIMY Childs - Last Filed: 02/01/20 20:27> Narrative Exam Narrative: CONST: Healthy appearing patient, anxious. Well hydrated. Alert and oriented. EYES: General normal appearance. Alignment normal. Eyelids normal. Conjunctiva normal. Sclera normal. NECK: Normal visual inspection. FROM. No lymphadenopathy. Trachea midline. No Midline tenderness. CHEST: Normal insepection of the chest. RESP: Normal respiratory effort. Speaking full sentences. No cough. No wheezing. No retractions. Clear to auscaltation. Breath sound equal and present bilaterally. CARDIO: No JVD. Normal PMI. Regular Rate. Regular Rhythm. Normal peripheral pulses. GI: Normal inspection of abdomen. No distension. Soft. Nontender. Bowel sounds present in all 4 quadrants. No rebound. No gaurding. MUSCULOSKELETAL: Normal Gait. FROM of all extremities. Distal neurovascularly intact. Sensation intact distally. SKIN: Normal. Dry. No rashes. NEURO: Alert and awake. Speech clear. PSYCH: Very anxious affect. Cooperative. Reporting current auditory hallucinations. Course <JEIMY Childs - Last Filed: 02/01/20 20:27> Vital Signs Vital signs: Vital Signs Temperature 37.5 C 01/31/20 18:38 Pulse 116 H 01/31/20 18:38 Respiratory Rate 18 01/31/20 18:38 Blood Pressure 164/104 H 01/31/20 18:38 Pulse Oximetry 100 01/31/20 18:38 Temperature 37.5 C 01/31/20 18:38 Temperature Source Temporal Artery Scan 01/31/20 18:38 Pulse 116 H 01/31/20 18:38 Respiratory Rate 18 01/31/20 18:38 Blood Pressure 164/104 H 01/31/20 18:38 Blood Pressure Position Supine 01/31/20 18:38 Pulse Oximetry 100 01/31/20 18:38 Oxygen Delivery Method Room Air 01/31/20 18:38 Oxygen Flow Rate 0 01/31/20 18:38 Lab/Test Results Lab/Test Results: Laboratory Tests Range/Units 01/31/20 01/31/20 01/31/20 18:50 18:50 19:28 WBC (4.4-10.8) k/cumm 11.26 H RBC (4.50-6.00) m/cumm 6.05 H Hgb (13.5-17.5) g/dL 17.6 H Hct (40.0-50.0) % 50.2 H MCV (80-95) fL 83.0 MCH (27.0-33.0) pg 29.1 MCHC (32.0-36.0) g/dL 35.1 RDW (11.8-14.1) % 13.5 Plt Count (130-400) x1000/uL 398 MPV (8.0-11.0) fL 10.3 Immature Gran % % 0.1 Neutrophils % 75.4 Lymphocytes % 18.4 Monocytes % 4.6 Eosinophils % 1.3 Basophils % 0.2 Absolute Neutrophils (1.2-6.7) k/cumm 8.49 H Absolute Lymphocytes (1.2-3.4) k/cumm 2.07 Absolute Monocytes (0.11-0.7) k/cumm 0.52 Absolute Eosinophils (0.0-0.7) k/cumm 0.15 Absolute Basophils (0.0-0.2) k/cumm 0.02 Differential Comment Agrees w/ instrument RBC Morphology Normal Sodium (136-145) mmol/L 136 Potassium (3.5-5.1) mmol/L 3.1 L Chloride (98-107) mmol/L 99 Carbon Dioxide (21.0-32.0) mmol/L 26.7 Anion Gap (3-11) mmol/L 10.3 BUN (7-18) mg/dL 10 Creatinine (0.70-1.30) mg/dL 1.33 H Estimated GFR/1.73 m2 (mL/min/1.73m2) >= 60.00 Glucose (74-106) mg/dL 116 H Calcium (8.5-10.1) mg/dL 9.6 Total Bilirubin (0.2-1.0) mg/dL 0.4 AST (15-37) U/L 20 ALT (16-63) U/L 37 Alkaline Phosphatase (46-116) U/L 91 Total Protein (6.4-8.2) g/dL 8.4 H Albumin (3.4-5.0) g/dL 4.2 Urine Color (Yellow) Urine Clarity (Clear) Urine pH (5-8) Ur Specific [place] (1.005-1.025) Urine Protein (Negative) mg/dL Urine Ketones (Negative) mg/dL Urine Blood (Negative) Urine Nitrite (Negative) Urine Bilirubin (Negative) Urine Urobilinogen (Up TO 0.2) EU/dL Ur Leukocyte Esterase (Negative) Urine Glucose (Negative) mg/dL Urine Opiates Screen (Negative) Negative Urine Methadone Screen (Negative) Negative Ur Barbiturates Screen (Negative) Negative Ur Tricyclics Screen (Negative) Negative Ur Amphetamines Screen (Negative) Negative U Benzodiazepines Scrn (Negative) Negative Urine Cocaine Screen (Negative) Negative Ur THC Screen (Negative) Negative Range/Units 01/31/20 19:28 WBC (4.4-10.8) k/cumm RBC (4.50-6.00) m/cumm Hgb (13.5-17.5) g/dL Hct (40.0-50.0) % MCV (80-95) fL MCH (27.0-33.0) pg MCHC (32.0-36.0) g/dL RDW (11.8-14.1) % Plt Count (130-400) x1000/uL MPV (8.0-11.0) fL Immature Gran % % Neutrophils % Lymphocytes % Monocytes % Eosinophils % Basophils % Absolute Neutrophils (1.2-6.7) k/cumm Absolute Lymphocytes (1.2-3.4) k/cumm Absolute Monocytes (0.11-0.7) k/cumm Absolute Eosinophils (0.0-0.7) k/cumm Absolute Basophils (0.0-0.2) k/cumm Differential Comment RBC Morphology Sodium (136-145) mmol/L Potassium (3.5-5.1) mmol/L Chloride (98-107) mmol/L Carbon Dioxide (21.0-32.0) mmol/L Anion Gap (3-11) mmol/L BUN (7-18) mg/dL Creatinine (0.70-1.30) mg/dL Estimated GFR/1.73 m2 (mL/min/1.73m2) Glucose (74-106) mg/dL Calcium (8.5-10.1) mg/dL Total Bilirubin (0.2-1.0) mg/dL AST (15-37) U/L ALT (16-63) U/L Alkaline Phosphatase (46-116) U/L Total Protein (6.4-8.2) g/dL Albumin (3.4-5.0) g/dL Urine Color (Yellow) Yellow Urine Clarity (Clear) Clear Urine pH (5-8) 7.0 Ur Specific [place] (1.005-1.025) 1.015 Urine Protein (Negative) mg/dL Negative Urine Ketones (Negative) mg/dL Negative Urine Blood (Negative) Negative Urine Nitrite (Negative) Negative Urine Bilirubin (Negative) Negative Urine Urobilinogen (Up TO 0.2) EU/dL 0.2 Ur Leukocyte Esterase (Negative) Negative Urine Glucose (Negative) mg/dL Negative Urine Opiates Screen (Negative) Urine Methadone Screen (Negative) Ur Barbiturates Screen (Negative) Ur Tricyclics Screen (Negative) Ur Amphetamines Screen (Negative) U Benzodiazepines Scrn (Negative) Urine Cocaine Screen (Negative) Ur THC Screen (Negative)
--- NOTE | 2020-01-31 22:22 | CMSP_ITS ---
- If Service Date Differs Date of service: 01/31/20 Time of Service: 22:22 Care Management Safety Plan CM contacted by the emergency department provider to enter a safety plan for Enio who has a history of depression, ADHD, and PTSD. There is currently no current notes available from [facility] or crisis maid housekeeper. Per report the patient has been screened by mental health for needing psychiatric placement. He will have a CPSO and remain in the ED at this time. Interim safety plan to address immediate needs of the patient while undergoing medical evaluation. SAFETY PLAN: 1. Will remain on suicide precautions and in paper clothes. 2. Will remain in room under direct supervision of one-on-one staff at all times provided by CPSO DESIRAE, FENCE INSTALLER FOREMAN medical record clerk. 3. May have paper cups, plates, finger foods as well as a cardboard spoon with which to eat meals. 4. Follow [facility] Management of the Admitted Behavioral Health Patient policy. 5. Comfort bath system only. 6. No personal belongings 7. No visitors. 8. Phone at the discretion of staff with supervision 9. Due to VOLUNTARY status, if patient wishes to leave [facility], the [facility] animal nursery worker must be contacted to re-evaluate patient prior to patient exiting the building. If deemed appropriate for inpatient psychiatric care, safety plan will be established with patient, and care team, to adhere to patient goals, identify restrictions based on behavioral status, address nutrition, and determine allowed personal belongings, tools for hygiene and personal care. As well plan will determine level of activity including ambulation, level of supervision, visitors, and determine privileges based on level of acuity, behaviors and level of engagement by patient.
--- NOTE | 2020-01-31 23:27 | NUR.NOTE ---
Assumed care of pt. Report from Hilda.
[2020-02-01] VITALS (25 sets, daily range): BP systolic 100–124; BP diastolic 47–71; PULSE 61–98; RESP 16–24; TEMP 36–36.6; O2SAT 95–100
[2020-02-01] MEDS: Potassium Chloride 20 MEQ TABCR PO (01:13)
--- NOTE | 2020-02-01 01:36 | NUR.NOTE ---
Report to [facility]. Pt transported to [facility] with RN and APPLICATION SOFTWARE DEVELOPER via WC with all belongings.
--- NOTE | 2020-02-01 05:52 | W.PM.HP.N ---
Date of service: 02/01/20 Time of Service: 05:52 Assessment and Plan Assessment and plan (1) Hallucinations: Status: Acute Assessment and plan: Auditory hallucinations. Unclear if this may be a primary disorder or, as perhaps appears more likely, a toxic effect from ingestion of Adderal. In any case patient certainly needs a better management plan. Will await f/u from Mental health regarding disposition. Otherwise, will recheck potassium this morning after replacement. History of Present Illness History of Present Illness Chief Complaint: auditory hallucinations Narrative: 34 male with h/o depression and PTSD, but no specified psychotic disorder, althouigh the report in ER note is of prior similar episodes. However, I do note allergy list specifies hallucinations form Vyvanse and patient tells me he has been taking Adderal past week or two, to deal with stress. With that much as background patient presented last night for anxiety and auditory hallucinations. In ER received Haldol 5 and Ativan 1, both IV, and has been resting comfortably since. At this time patient says he feels fine. [facility], though now says he wants to talk to GF first. W/U otherwise of note for K 3.1, received 20 PO in ER. Review of Systems All systems reviewed & are unremarkable except as noted in HPI and below [facility] Medical History Abdominal adhesions (Chronic 07/29/16) Explor lap 2018 Acute appendicitis (Resolved ~05/2015) Depression (Chronic 03/12/17) Esophagitis with gastritis (Chronic) 02/2018 colonoscopy & upper EGD: severe reflux esophagitis with ulceration, gastritis, peptic duodenitis; neg H. Pylori, neg gluten sensitivity Abd pain better s/p course of H2 blockers [facility] [place] [place] GI consult 06/2018 Family history of diabetes mellitus (Chronic 07/29/16) Inflammatory bowel diseases (IBD) (Ruled-out ~02/2018) Not identified on 03/03/18 colonoscopy & upper EGD, so ruled-out Intentional amphetamine overdose (Inactive) 04/05/2019 Intentional self-harm by blunt object, initial encounter (Resolved 01/13/18) Cutting (arms/legs) Intussusception intestine (Resolved ~02/2018) Question of, not confirmed PTSD (post-traumatic stress disorder) (Chronic 03/12/17) Substance use disorder (Chronic 12/22/17) Tramadol ([facility] 2017) Vyvanse ([facility] [place] [place] 2015) Amphetamine OD ([facility] 04/05/2019) Amphetamine OD (10/2019, [facility]) Tobacco use disorder (Chronic 07/29/16) Cigs 1PPD Tubular adenoma of colon (Chronic 03/03/18) Rectal polyp pathology 03/03/2018 Repeat colonoscopy 2022 Surgical History Appendectomy (06/15/15) Dr Holguin Colonoscopy - MAC (03/03/18) EGD - MAC (03/03/18) Laparotomy (12/05/17) Resolved intussuscepption, possible inflammatory bowel disease Social History Smoking/Tobacco Use Status: Current every day Tobacco Type: cigarettes Tobacco: How many years used: 13 Quit status: not considering quitting Counseling given: patient declined Alcohol Intake: current Alcohol Intake frequency: holidays/special occasions only Alcohol type: beer Drug use: Never Substance use type: does not use Household members: spouse and children Housing: apartment Number of Children: 3 current occupation: cares for with [employer] Pets and animals: Yes (Dog) Sexually active: Yes Current gender identity: male Additional Social history: pt is not able to answer the safety question Meds Home Medications and Allergies Home Medications Medication Instructions Recorded Confirmed Type gabapentin 800 mg tablet 800 mg PO TID #90 tab 02/01/19 01/31/20 Rx sucralfate 1 gram tablet 1 gm PO QACHS #120 tab 07/05/19 11/15/19 Rx ranitidine HCl 300 mg tablet 300 mg PO QHS 07/06/19 11/15/19 History Allergies Allergy/AdvReac Type Severity Reaction Status Date / Time lisdexamfetamine dimesylate AdvReac Severe Auditory Verified 01/31/20 18:46 [From Vyvanse] Hallucination sertraline AdvReac Severe anger Verified 01/31/20 18:46 Exam Narrative Exam Narrative: 100/47, 61, 36.2, 18, 96%. HEENT atraumatic; neck rm[pple; heart RRR; abdomen soft and NT; extremities w/o edema, pulses intact; neuro Ox3, lucid, does not appear to be responding to internal stimuli Results Labs Result diagrams: 01/31/20 18:50 01/31/20 18:50 Labs: Laboratory Results - last 24 hr 01/31/20 01/31/20 01/31/20 18:50 18:50 19:28 WBC 11.26 H RBC 6.05 H Hgb 17.6 H Hct 50.2 H MCV 83.0 MCH 29.1 MCHC 35.1 RDW 13.5 Plt Count 398 MPV 10.3 Immature Gran % 0.1 Neutrophils % 75.4 Lymphocytes % 18.4 Monocytes % 4.6 Eosinophils % 1.3 Basophils % 0.2 Absolute Neutrophils 8.49 H Absolute Lymphocytes 2.07 Absolute Monocytes 0.52 Absolute Eosinophils 0.15 Absolute Basophils 0.02 Differential Comment Agrees w/ instrument RBC Morphology Normal Sodium 136 Potassium 3.1 L Chloride 99 Carbon Dioxide 26.7 Anion Gap 10.3 BUN 10 Creatinine 1.33 H Estimated GFR/1.73 m2 >= 60.00 Glucose 116 H Calcium 9.6 Total Bilirubin 0.4 AST 20 ALT 37 Alkaline Phosphatase 91 Total Protein 8.4 H Albumin 4.2 Urine Color Urine Clarity Urine pH Ur Specific [place] Urine Protein Urine Ketones Urine Blood Urine Nitrite Urine Bilirubin Urine Urobilinogen Ur Leukocyte Esterase Urine Glucose Urine Opiates Screen Negative Urine Methadone Screen Negative Ur Barbiturates Screen Negative Ur Tricyclics Screen Negative Ur Amphetamines Screen Negative U Benzodiazepines Scrn Negative Urine Cocaine Screen Negative Ur THC Screen Negative 01/31/20 19:28 WBC RBC Hgb Hct MCV MCH MCHC RDW Plt Count MPV Immature Gran % Neutrophils % Lymphocytes % Monocytes % Eosinophils % Basophils % Absolute Neutrophils Absolute Lymphocytes Absolute Monocytes Absolute Eosinophils Absolute Basophils Differential Comment RBC Morphology Sodium Potassium Chloride Carbon Dioxide Anion Gap BUN Creatinine Estimated GFR/1.73 m2 Glucose Calcium Total Bilirubin AST ALT Alkaline Phosphatase Total Protein Albumin Urine Color Yellow Urine Clarity Clear Urine pH 7.0 Ur Specific [place] 1.015 Urine Protein Negative Urine Ketones Negative Urine Blood Negative Urine Nitrite Negative Urine Bilirubin Negative Urine Urobilinogen 0.2 Ur Leukocyte Esterase Negative Urine Glucose Negative Urine Opiates Screen Urine Methadone Screen Ur Barbiturates Screen Ur Tricyclics Screen Ur Amphetamines Screen U Benzodiazepines Scrn Urine Cocaine Screen Ur THC Screen Last Vital Signs Temp 36.2 C L 02/01/20 02:00 Pulse 61 02/01/20 05:01 Resp 18 02/01/20 02:00 BP 100/47 L 02/01/20 05:01 Pulse Ox 96 02/01/20 02:00
[2020-02-01 06:50] LABS: Potassium 4.4 mmol/L (3.5-5.1)
[2020-02-01] MEDS: Gabapentin 800 MG TAB PO (08:26)
[2020-02-01 08:34] LABS: Magnesium 2.3 mg/dL (1.8-2.4)
--- NOTE | 2020-02-01 10:17 | PHA.REVIEW ---
Pharmacy Admission Review - Admission Clinical Review (Last Reviewed 01/31/20 @ 22:22 by JEIMY Childs) Hallucinations (Acute) Auditory hallucinations (Acute) lisdexamfetamine dimesylate [From Vyvanse] Adverse Reaction (Severe, Verified 01/31/20 18:46) Auditory Hallucination sertraline Adverse Reaction (Severe, Verified 01/31/20 18:46) anger Height 5 ft 7 in Weight 89 kg - Renal Dosing Renal Dosing: BUN 10 mg/dL (7-18) 01/31/20 18:50 Creatinine 1.33 mg/dL (0.70-1.30) H 01/31/20 18:50 Medications needing adjustments: Reviewed (CRCL~74ML/MIN) - Anticoagulation Anticoagulation: Hgb 17.6 g/dL (13.5-17.5) H 01/31/20 18:50 Hct 50.2 % (40.0-50.0) H 01/31/20 18:50 Plt Count 398 x1000/uL (130-400) 01/31/20 18:50 Creatinine 1.33 mg/dL (0.70-1.30) H 01/31/20 18:50 DVT Prohphylaxis: N/A Therapeutic Anticoagulation: N/A - Opiate Usage Evaluate Pain Scale/Pains Meds: N/A - Relevant Labs Sodium 136 mmol/L (136-145) 01/31/20 18:50 Potassium 4.4 mmol/L (3.5-5.1) D 02/01/20 06:34 Chloride 99 mmol/L (98-107) 01/31/20 18:50 Magnesium 2.3 mg/dL (1.8-2.4) 02/01/20 06:34 Electrolytes, C-Reactive P, ESR: Reviewed - DM Control DM Control: Glucose 116 mg/dL (74-106) H 01/31/20 18:50 Insulin Dosing: N/A - Heart Failure/SD EF%, RASTA's, B-Blockers, Diuretics: N/A - BP Control BP Control: Blood Pressure [Right Arm] 114/59 Blood Pressure 119/69 Blood Pressure 123/71 Blood Pressure 113/50 Blood Pressure 100/47 Blood Pressure 114/55 Blood Pressure 119/56 Blood Pressure 124/55 Blood Pressure 121/58 Blood Pressure 121/57 Blood Pressure 112/60 Blood Pressure 114/59 Blood Pressure 108/58 Blood Pressure 108/58 If elevated: N/A - Qtc Review If Elevated: N/A - Home Meds Home Med List reviewed: Reviewed - Current meds Current Medication Order Review: Reviewed - Comments Comments/Follow Ups: Mental health consult. may transfer to mental health facility
--- NOTE | 2020-02-01 10:46 | W.INMHPGNOTE ---
Date of service: 02/01/20 Time of Service: 09:20 Mental Health Crisis Note Presenting Issue How did you arrive at the ED and why did you come: The patient is seen via telehealth at [facility] transition unit following ED admit on 01/31/20 for auditory hallucinations and anxiety. Precipitating Factors The patient is a 34yo male with history of ADHD and anxiety. He was transported to [facility] ED on 01/31/20 by his father with chief complaint of loud and intrusive auditory hallucinations. He advises that he is seen by Dr. Mujica at [facility] and that he has been working through some of his trauma history. The patient presents lying down on ICU bed with poor general grooming. He is A/Ox4 with immediate, recent, and remote memory intact. Eye contact is fair. He is responsive to questions but not elaborative and presents as highly irritable. He states that he was feeling fine until I had to get up. He reports experiencing intermittent vocal auditory hallucinations with variable loudness that provokes his anxiety. He advises that the voices are typically vague and that he does not always recognize them. No report of command or visual hallucinations. No other evidence of psychotic thought process or acute distress during assessment today. He denies current SI/HI, intent or plan. Disposition BEHAVIOR: Cooperative but reluctant to go into detail. EYE CONTACT: Fair MOOD: Fine / euthymic AFFECT: Irritable APPETITE: No reported issues. SLEEP(trouble falling/staying asleep: Patient reports sleep dysregulation as a result of intrusive vocal hallucinations. Plan The patient advises that he is still seeking hospitalization but has expressed some reservations about potential work-related disruption as a result of in-patient treatment. Per consultation with on-call staff, information has been faxed and received at the following facilities: [facility], [facility], and [facility]. This patient will remain at [facility] pending suitable discharge location. Signature Clinician's Name/Title: Enio Ortiz BA, ES Clinician
--- NOTE | 2020-02-01 12:10 | W.NUTRFU ---
Date of service: 02/01/20 Time of Service: 12:10 Nutritional Follow up NOTE: 34 year old male admitted with pscychiatric concerns, hallucinations, awaiting transfer. BMI indicates mild obesity, on regular diet with adequate intake. Not at risk for nutritional decline at this time. Time Spent in Nutritional Counseling and Treatment: 0 time spent face to face
--- NOTE | 2020-02-01 12:41 | CMPROGNOTE_ITS ---
Care Management Progress Note S/O: CM coordinated MH screening this morning via Zoom. Malcolm from [facility] reports Enio is not expressing SI or HI but would benefit from psychiatric stabilization for medication management due to increased auditory hallucinations that are currently interfering with his quality of life. Referrals faxed to all available facilities by [facility], Malcolm reports Katie [place], [facility] and [place] are reviewing Mr. Chowdary's referral and awaiting CV-19 test results at this time, to make determination regarding admission. Due to Enio's agreeable presentation and lack of SI, and HI, the CPSO will be removed and the safety plan discontinued. CM will continue working with [facility] to secure placement, will fax test results when available, and will support placement coordination including transportation. A: 34 year old male admitted to [facility] 02/01/20 for Psychiatric Episode. P: At this time, plan remains for Enio to transfer to stabilization program when a bed becomes available. CM will fax COVID test results when available. Anticipate Enio will transport via [employer], coordinated by this selling underwriter. Enio is voluntary at this time, should he decide to leave [facility], he will be permitted to do so, and [facility] will be notified.
--- NOTE | 2020-02-01 12:41 | PDOC.CMPRO ---
Care Management Progress Note S/O: CM coordinated MH screening this morning via Zoom. Malclom from [facility] reports Enio is not expressing SI or HI but would benefit from psychiatric stabilization for medication management due to increased auditory hallucinations that are currently interfering with his quality of life. Referrals faxed to all available facilities by [facility], Malcolm reports Katie [place], [facility], [place] and [place] are reviewing Mr. Chowdary's referral and awaiting CV-19 test results at this time, to make determination regarding admission. Due to Enio's agreeable presentation and lack of SI, and HI, the CPSO will be removed and the safety plan discontinued. CM will continue working with [facility] to secure placement, will fax test results when available, and will support placement coordination including transportation. A: 34 year old male admitted to [facility] 02/01/20 for Psychiatric Episode. P: At this time, plan remains for Enio to transfer to stabilization program when a bed becomes available. CM will fax COVID test results when available. Anticipate Enio will transport via [employer], coordinated by this ad writer. Enio is voluntary at this time, should he decide to leave [facility], he will be permitted to do so, and [facility] will be notified.
--- NOTE | 2020-02-01 13:58 | NUR.NOTE ---
Nursing Note: 3900 Patient used call amaral; then informed nurse he was going home. RN explained that Covid testing results required before admission to mental health facilities and likely would be back tonight or early tomorrow morning; if he were to leave now and wanted placement hereafter then another Covid test would be required. Patient was insistent on leaving immediately. MD, Nurse [employer] Developer, and Pc Maintenance Technician notified.
--- NOTE | 2020-02-01 14:53 | DSE_ITS ---
Date of service: 02/01/20 Time of Service: 14:53 DS: Diagnosis Discharge Diagnosis (1) Hallucinations: Status: Acute Asessment and Plan: Acute on chronic (2) ADHD: Status: Chronic (3) PTSD (post-traumatic stress disorder): Status: Chronic (4) Depression: Status: Chronic Discharge Plan Disposition Patient Disposition: AGAINST MEDICAL ADVICE Condition: Good Discharge Details Chief Complaint: PsychEval Clinical Impression: Auditory hallucinations Reason For Visit: PSYCHIATRIC EPISODE Admit Date/Time: 02/01/20 00:47 Admit Provider: Giovanni Mcmilaln Attending Provider: Giovanni Mcmillan Primary Care Provider: Polina Darby ED Provider: Aury Catalan Hospital Course Hospital Course: Mr Escamilla is a 34 year old male with PMHx of depression, PTSD, ADHD, and history of ongoing auditory hallucinations, who was observed on hospitalist service at [facility] On 02/01/2020 having presented here with auditory hallucinations without SI/HI. He was medically cleared, evaluated by mental health and deemed appropriate for a voluntary psychiatric hospitalization for medication management. However, the patient was not willing to stay until his COVID-19 screening test came back negative prior to being placed and left AMA. Home Meds and New Rx's Prescriptions: No Action gabapentin 800 mg tablet 800 mg PO TID Qty: 90 RF: 11 sucralfate [Carafate] 1 gram tablet 1 gm PO QACHS Qty: 120 RF: 0 ranitidine HCl 300 mg tablet 300 mg PO QHS RF: 0 Discharge Instructions Referrals: Denice Ceballos [Emergency Nurse] - Polina Darby, MANAGER MA[employer] [Primary Care Provider] - Activity:: Activity as Tolerated Equipment/Supplies:: No Equipment Needed Diet:: As Tolerated Discharge Orders Discharge Orders: Discharge Order (Routine); Ordered 02/01/20 Ordered By: Katerina Baum Discharge Data Discharge Date/Time-TO BE ENTERED AT DEPARTURE: 02/01/20 13:50 DS: Summary Status at Discharge Functional status at discharge: independent ambulation Overall status at discharge: patient is back to baseline Mental Status: mental status grossly normal Speech and Movement: speech and movement normal Mood: anxious mood Affect: anxious affect Exam Narrative Exam Narrative: General: very pleasant male, A&Ox3, cooperative HEENT: EOMI, MMM Heart: RRR, no m/r/g Lungs: CTAB Abdomen: soft, nontender, nondistended Extremities: no e/c/c BLE's Psych Mental Status: mental status grossly normal Speech and Movement: speech and movement normal Mood: anxious mood Affect: anxious affect DS: Data Vitals/I&O Vitals and I&O: Vital Signs Temperature 36 C L 02/01/20 11:38 Temperature Source Temporal Artery Scan 02/01/20 11:38 Pulse 78 02/01/20 11:38 Pulse Rhythm Regular 02/01/20 07:35 Pulse 88 02/01/20 01:20 Respiratory Rate 16 02/01/20 11:38 Respiratory Effort Non-Labored 02/01/20 07:35 Respiratory Depth Normal 02/01/20 07:35 Respiratory Pattern Normal 02/01/20 07:35 Blood Pressure 121/66 02/01/20 11:38 Blood Pressure Mean 77 02/01/20 11:38 Blood Pressure Position Supine 02/01/20 02:00 Pulse Oximetry 100 02/01/20 11:38 Oxygen Delivery Method Room Air 02/01/20 11:38 Oxygen Flow Rate 0 02/01/20 11:38 Pain Level 0 02/01/20 13:50 Comment 02/01/20 11:38 Intake & Output 01/31/20 02/01/20 02/01/20 23:59 11:59 23:59 Intake Total 1000 / 1000 400 / 400 Output Total 600 / 600 800 / 800 Balance 400 / 400 -400 / -400 Weight 90.718 kg 89 kg Intake: IV 1000 / 1000 Oral 400 / 400 Output: Urine 600 / 600 800 / 800 Other: Urine Color Pale Yellow Urine Appearance Clear Urine Odor None Voiding Methods Urinal Data Completed and Pending Labs on day of discharge: Labs from last 24 hours 02/01/20 01/31/20 01/31/20 06:34 21:20 19:28 WBC RBC Hgb Hct MCV MCH MCHC RDW Plt Count MPV Immature Gran % Neutrophils % Lymphocytes % Monocytes % Eosinophils % Basophils % Absolute Neutrophils Absolute Lymphocytes Absolute Monocytes Absolute Eosinophils Absolute Basophils Differential Comment RBC Morphology Sodium Potassium 4.4 D Chloride Carbon Dioxide Anion Gap BUN Creatinine Estimated GFR/1.73 m2 Glucose Calcium Magnesium 2.3 Total Bilirubin AST ALT Alkaline Phosphatase Total Protein Albumin Urine Color Yellow Urine Clarity Clear Urine pH 7.0 Ur Specific [place] 1.015 Urine Protein Negative Urine Ketones Negative Urine Blood Negative Urine Nitrite Negative Urine Bilirubin Negative Urine Urobilinogen 0.2 Ur Leukocyte Esterase Negative Urine Glucose Negative Urine Opiates Screen Urine Methadone Screen Ur Barbiturates Screen Ur Tricyclics Screen Ur Amphetamines Screen U Benzodiazepines Scrn Urine Cocaine Screen Ur THC Screen COVID-19 PCR Pending Nasopharyn COVID-19 PCR Pending Ref Test Perform Site Pending 01/31/20 01/31/20 01/31/20 19:28 18:50 18:50 WBC 11.26 H RBC 6.05 H Hgb 17.6 H Hct 50.2 H MCV 83.0 MCH 29.1 MCHC 35.1 RDW 13.5 Plt Count 398 MPV 10.3 Immature Gran % 0.1 Neutrophils % 75.4 Lymphocytes % 18.4 Monocytes % 4.6 Eosinophils % 1.3 Basophils % 0.2 Absolute Neutrophils 8.49 H Absolute Lymphocytes 2.07 Absolute Monocytes 0.52 Absolute Eosinophils 0.15 Absolute Basophils 0.02 Differential Comment Agrees w/ instrument RBC Morphology Normal Sodium 136 Potassium 3.1 L Chloride 99 Carbon Dioxide 26.7 Anion Gap 10.3 BUN 10 Creatinine 1.33 H Estimated GFR/1.73 m2 >= 60.00 Glucose 116 H Calcium 9.6 Magnesium Total Bilirubin 0.4 AST 20 ALT 37 Alkaline Phosphatase 91 Total Protein 8.4 H Albumin 4.2 Urine Color Urine Clarity Urine pH Ur Specific [place] Urine Protein Urine Ketones Urine Blood Urine Nitrite Urine Bilirubin Urine Urobilinogen Ur Leukocyte Esterase Urine Glucose Urine Opiates Screen Negative Urine Methadone Screen Negative Ur Barbiturates Screen Negative Ur Tricyclics Screen Negative Ur Amphetamines Screen Negative U Benzodiazepines Scrn Negative Urine Cocaine Screen Negative Ur THC Screen Negative COVID-19 PCR Nasopharyn COVID-19 PCR Ref Test Perform Site [facility] Medical History Abdominal adhesions (Chronic 07/29/16) Explor lap 2017 Acute appendicitis (Resolved ~05/2015) Depression (Chronic 03/12/17) Esophagitis with gastritis (Chronic) 02/2018 colonoscopy & upper EGD: severe reflux esophagitis with ulceration, gastritis, peptic duodenitis; neg H. Pylori, neg gluten sensitivity Abd pain better s/p course of H2 blockers [facility] GI consult 06/2018 Family history of diabetes mellitus (Chronic 07/29/16) Inflammatory bowel diseases (IBD) (Ruled-out ~02/2018) Not identified on 03/03/18 colonoscopy & upper EGD, so ruled-out Intentional amphetamine overdose (Inactive) 04/05/2019 Intentional self-harm by blunt object, initial encounter (Resolved 01/13/18) Cutting (arms/legs) Intussusception intestine (Resolved ~02/2018) Question of, not confirmed PTSD (post-traumatic stress disorder) (Chronic 03/12/17) Substance use disorder (Chronic 12/22/17) Tramadol ([facility] 2017) Vyvanse ([facility] 2015) Amphetamine OD ([facility] 04/05/2019) Amphetamine OD (10/2019, [facility]) Tobacco use disorder (Chronic 07/29/16) Cigs 1PPD Tubular adenoma of colon (Chronic 03/03/18) Rectal polyp pathology 03/03/2018 Repeat colonoscopy 2022 Surgical History Appendectomy (06/15/15) Dr Holguin Colonoscopy - MAC (03/03/18) EGD - MAC (03/03/18) Laparotomy (12/05/17) Resolved intussuscepption, possible inflammatory bowel disease Social History Smoking/Tobacco Use Status: Current every day Tobacco Type: cigarettes Tobacco: How many years used: 13 Quit status: not considering quitting Counseling given: patient declined Alcohol Intake: current Alcohol Intake frequency: holidays/special occasions only Alcohol type: beer Drug use: Never Substance use type: does not use Household members: spouse and children Housing: apartment Number of Children: 3 current occupation: cares for with [employer] Pets and animals: Yes (Dog) Sexually active: Yes Current gender identity: male Additional Social history: pt is not able to answer the safety question
[2020-02-01 22:39] LABS: COVID-19 RT-PCR UVMMC Result Negative (Negative)
== END 2020-02-01 13:50 | disposition left against medical advice (07) ==
LOC: ER 02-01 01:04 → ICU 02-01 01:29
PROVIDERS: Admitting Provider General Practice; Emergency Provider Physician Assistant; PCP Nurse Practitioner Adult Health; Visit Provider Internal Medicine
DX: R44.0 Auditory hallucinations (principal); Z53.29 Procedure and treatment not carried out because of patient's decision for other reasons; E87.6 Hypokalemia; F90.9 Attention-deficit hyperactivity disorder, unspecified type; F43.10 Post-traumatic stress disorder, unspecified; F32.9 Major depressive disorder, single episode, unspecified
CPT/HCPCS: 36415; 80053; 80307; 96361; 96374; 96375; 99217; 99222; 99285; U0003; 81003; 83735; 84132; 85025; 99236; 99284; G0378; J1630; J2060

== ENCOUNTER 2020-07-31 03:21 | Outpatient (CLI) | payer MEDICAID, SELFPAY ==
[2020-07-31 09:45] LABS: HCT 52.5 % (40.0-50.0); HGB 17.5 g/dL (13.5-17.5); MCH 29.6 pg (27.0-33.0); MCHC 33.3 % (32.0-36.0); MCV 88.8 fL (80-95); MPV 10.7 fL (8.0-11.0); Platelet Count 289 10^3/uL (130-400); RBC 5.91 10^6/uL (4.36-5.78); RDW 12.8 % (11.8-14.1); RDW-SD 42.1 fL; WBC 8.17 10^3/uL (4.4-10.8)
[2020-07-31 10:36] LABS: ALT 43 U/L (16-63); AST 22 U/L (15-37); Albumin 3.9 g/dL (3.4-5.0); Alkaline Phosphatase 85 U/L (46-116); Anion Gap 9.5 mmol/L (3-11); BUN 16 mg/dL (7-18); Bilirubin, Total 0.2 mg/dL (0.2-1.0); CO2 28.5 mmol/L (21.0-32.0); CREATININE 1.18 mg/dL (0.70-1.30); Calcium 9.5 mg/dL (8.5-10.1); Calculated LDL 128 mg/dL (<100); Chloride 103 mmol/L (98-107); Cholesterol 191 mg/dL (<200); Glucose 110 mg/dL (74-106); HDL Cholesterol 45 mg/dL (40-60); Potassium 4.3 mmol/L (3.5-5.1); Sodium 141 mmol/L (136-145); Total Protein 7.3 g/dL (6.4-8.2); Triglyceride 93 mg/dL (<150)
[2020-08-01 14:46] LABS: HIV-1/2 Ag & Ab Screen Negative (Negative)
[2020-08-08 13:53] LABS: Hepatitis C Ab w Rflx HCV PCR Negative (Negative)
== END 2020-07-31 03:41 ==
PROVIDERS: PCP Nurse Practitioner Adult Health; Visit Provider Nurse Practitioner Adult Health
DX: K20.90 Esophagitis, unspecified without bleeding (principal); K29.70 Gastritis, unspecified, without bleeding; R03.0 Elevated blood-pressure reading, without diagnosis of hypertension; R53.83 Other fatigue; Z13.220 Encounter for screening for lipoid disorders; Z83.3 Family history of diabetes mellitus; D12.6 Benign neoplasm of colon, unspecified; Z11.4 Encounter for screening for human immunodeficiency virus [HIV]
CPT/HCPCS: 36415; 80053; 80061; 85027; 86803; 87389; 84443

== ENCOUNTER 2020-11-16 13:54 | Outpatient (REF) | payer MEDICAID, SELFPAY ==
[2020-11-18 14:14] LABS: COVID-19 RT-PCR UVMMC Result Negative (Negative)
== END 2020-11-16 13:55 | disposition home or self-care (01) ==
LOC: NCHCN 13:54
PROVIDERS: PCP Nurse Practitioner Adult Health; Visit Provider Nurse Practitioner
DX: Z20.822 Contact with and (suspected) exposure to COVID-19 (principal)
CPT/HCPCS: U0003

== ENCOUNTER 2021-05-10 12:55 | Emergency (ER) | payer MEDICAID, SELFPAY ==
[2021-05-10 13:13] VITALS: BP 152/96; PULSE 88; RESP 16; TEMP 37; O2SAT 96
--- NOTE | 2021-05-10 14:01 | W.ED.GENAD ---
Discharge Plan Disposition Patient Disposition: HOME Condition: Stable Discharge Details Clinical Impression: Laceration of forearm Primary Care Provider: Polina Darby ED Provider: Malcolm Ruiz Home Meds and New Rx's Prescriptions: Continued gabapentin 800 mg tablet 800 mg PO TID Qty: 90 RF: 11 Discharge Instructions Instructions: Laceration (ED) Additional Instructions: Laceration repaired without difficulty. Keep the area clean and dry, change dressing daily. [id number] Tylenol and/or Motrin as directed for discomfort. Please watch for new or worsening symptoms and return to the ER for any concerns. Sutures should be removed in the next 7-10 days Discharge Data Discharge Date/Time-TO BE ENTERED AT DEPARTURE: 05/10/21 14:45 Medical Decision Making 35-year-old male, [id number], tetanus is up-to-date, presents for a left forearm laceration that he sustained accidentally with a utility knife. Patient appears well, neuro, vascular, tendon intact. No active bleeding or signs of foreign body. No clear indication for emergent imaging. Will repair laceration. Laceration repaired without difficulty. Patient tolerated well. The wound was then dressed. Standard discharge and return precautions given. This documentation was generated using [employer] system, please disregard any oddities of phrase or misspellings. Medical Records Medical records reviewed: Yes I reviewed the patient's medical records. HPI General Mode of arrival: ambulatory. Date/Time Provider Initiated Documentation: 05/10/21 13:37. Limitations to Documentation: no limitations. Information obtained by: patient. HPI Narrative: This is a 35-year-old male, [id number], denies significant past medical history, presenting to the ER for evaluation of a left forearm injury. Patient states that he accidentally cut his left forearm with a utility knife approximately 1 hour ago. Reports pain is minimal, worse with movement. Tetanus status is up-to-date. Denies numbness, tingling, weakness. Denies any additional injury, concerns, complaints. Denies taking any medication prior to arrival. Related Data Home Medications Medication Instructions Recorded Confirmed gabapentin 800 mg tablet 800 mg PO TID #90 tab 02/01/19 05/10/21 Previous Rx's Medication Instructions Recorded gabapentin 800 mg tablet 800 mg PO TID #90 tab 02/01/19 Allergies Allergy/AdvReac Type Severity Reaction Status Date / Time lisdexamfetamine dimesylate AdvReac Severe Auditory Verified 05/10/21 13:17 [From Vyvanse] Hallucination sertraline AdvReac Severe anger Verified 05/10/21 13:17 General Stated Complaint: Laceration SLY: 4 Review of Systems Constitutional Constitutional: Denies fever(s) and Denies weakness Musculoskeletal Musculoskeletal: Denies arthralgias, Denies numbness and Denies tingling Integumentary/Breasts Skin/Breast: Denies rash Neurologic Neurologic: Denies numbness, Denies tingling and Denies weakness [facility] Medical History Abdominal adhesions (07/29/16) Explor lap 2018 Acute appendicitis (~05/2015) Depression (03/12/17) Esophagitis with gastritis 02/2018 colonoscopy & upper EGD: severe reflux esophagitis with ulceration, gastritis, peptic duodenitis; neg H. Pylori, neg gluten sensitivity Abd pain better s/p course of H2 blockers [facility] [place] consult 06/2018 Family history of diabetes mellitus (07/29/16) Inflammatory bowel diseases (IBD) (~02/2018) Not identified on 03/03/18 colonoscopy & upper EGD, so ruled-out Intentional amphetamine overdose 04/05/2019 Intentional self-harm by blunt object, initial encounter (01/13/18) Cutting (arms/legs) Intussusception intestine (~02/2018) Question of, not confirmed PTSD (post-traumatic stress disorder) (03/12/17) Substance use disorder (12/22/17) Tramadol ([facility] 2017) Vyvanse [place] [place]) Amphetamine OD ([facility] 04/05/2019) Amphetamine OD (10/2019, [facility]) Amphetamine OD (01/2020, [facility]) Tobacco use disorder (07/29/16) Cigs 1PPD Tubular adenoma of colon (03/03/18) Rectal polyp pathology 03/03/2018 Repeat colonoscopy 2022 Surgical History Appendectomy (06/15/15) Dr Holguin Colonoscopy - MAC (03/03/18) EGD - MAC (03/03/18) Laparotomy (12/05/17) Resolved intussuscepption, possible inflammatory bowel disease Family History Mother Mental disorder Manic depression and bipolar Father Essential hypertension Ulcerative colitis Other Asthma Social History Smoking/Tobacco Use Status: Current every day Tobacco Type: cigarettes Tobacco: How many years used: 13 Quit status: not considering quitting Counseling given: patient declined Smoking risk assessment performed?: Yes Alcohol Intake: current Alcohol Intake frequency: holidays/special occasions only Alcohol type: beer Drug use: Never Substance use type: does not use Household members: spouse and children Housing: apartment Number of Children: 3 current occupation: cares for with [employer] Pets and animals: Yes (Dog) Sexually active: Yes Current gender identity: male Do you feel safe at home: Yes Do you feel safe in your relationship?: Yes Additional Social history: pt is not able to answer the safety question Exam Const General: cooperative, healthy appearing, comfortable and no acute distress Orientation: alert and awake [facility] Head: normal to inspection, normocephalic and atraumatic Eyes General: appearance normal, both eyes and all related structures Conjunctivae: conjunctivae normal Neck Neck: normal visual inspection, trachea midline and supple Resp Effort & Inspection: normal respiratory effort and able to speak in complete sentences Cardio Rate: regular rate Rhythm: regular rhythm Skin General skin exam: no rashes or lesions noted Neuro General: patient alert, patient awake, moves all extremities and no focal motor deficits Cognition: normal cognition Speech: speech normal Gait: normal gait Sensory Exam: no sensory deficits noted Extrem General: full ROM and capillary refill normal Elbow/forearm/wrist images: 1. There is a regular, well approximated, 1 cm laceration without any erythema, warmth, active bleeding. No signs of foreign body. Full range of motion of the elbow wrist and hand. Neuro, vascular, tendon intact. Normal radial pulse and capillary refill. Psych Appearance: grossly normal Mental Status: mental status grossly normal Course Vital Signs Vital signs: Vital Signs Temperature 37 C 05/10/21 13:13 Pulse 88 05/10/21 13:13 Respiratory Rate 16 05/10/21 13:13 Blood Pressure 152/96 H 05/10/21 13:13 Pulse Oximetry 96 05/10/21 13:13 Temperature 37 C 05/10/21 13:13 Temperature Source Temporal Artery Scan 05/10/21 13:13 Pulse 88 05/10/21 13:13 Respiratory Rate 16 05/10/21 13:13 Respiratory Effort Non-Labored 05/10/21 13:18 Blood Pressure 152/96 H 05/10/21 13:13 Blood Pressure Position Sitting 05/10/21 13:13 Pulse Oximetry 96 05/10/21 13:13 Oxygen Delivery Method Room Air 05/10/21 13:13 Oxygen Flow Rate 0 05/10/21 13:13 Pain Level 2 05/10/21 13:13 Procedures Laceration Laceration 1: Site: upper extremity Side (If applicable): left Size (cm): 1 Description: linear and clean Depth: simple, single layer Local Anesthetic: Lidocaine 1% Amount of anesthesia used (mL): 4 Pre-repair: wound explored, irrigated extensively and deep structures intact Skin layer closed with: nylon Size (cm): 4-0 Number of sutures: 2 Technique: simple, interrupted
== END 2021-05-10 14:45 | disposition home or self-care (01) ==
PROVIDERS: Emergency Provider Physician Assistant; PCP Nurse Practitioner Adult Health
DX: S51.812A Laceration without foreign body of left forearm, initial encounter (principal); W26.0XXA Contact with knife, initial encounter
CPT/HCPCS: 12001

== ENCOUNTER 2021-05-17 02:14 | Outpatient (CLI) | payer MEDICAID, SELFPAY ==
--- NOTE | 2021-05-17 08:30 | DI.US_ITS ---
Exam(s) US HERNIA EXAM: US HERNIA CLINICAL HISTORY: Inguinal vs. fem hernia? vs. Abd hernia (may nd CT, lt groin pain, LLQ pain. TECHNIQUE: Ultrasound was performed using standard protocol. COMPARISON: No exams were available for comparison FINDINGS: Sonographic assessment utilizing grayscale and color Doppler imaging was performed and targeted to th e area of clinical concern. Area of concern is in the left lower quadrant. Submitted images reveal appears to be a 1.7 x 1.4 x 1.7 cm discontinuity in the anterior abdominal wa ll at this level with some shadowing at this level which probably indicates the presence of a bowel l oops therein. Therefore this most probably hernia. Recommend follow-up CT scan. IMPRESSION: DATA REPOSITORY:
== END 2021-05-17 02:34 ==
PROVIDERS: PCP Nurse Practitioner Adult Health; Visit Provider Nurse Practitioner Adult Health
DX: R10.32 Left lower quadrant pain (principal); R93.5 Abnormal findings on diagnostic imaging of other abdominal regions, including retroperitoneum
CPT/HCPCS: 76857

== ENCOUNTER 2021-05-19 17:44 | Emergency (ER) | payer MEDICAID, SELFPAY ==
--- NOTE | 2021-05-19 17:45 | DI.RAD_ITS ---
Exam(s) XR FOREARM LT EXAM: XR FOREARM LT CLINICAL HISTORY: lac, fb?. TECHNIQUE: 2D digital imaging was performed. COMPARISON: No exams were available for comparison FINDINGS: BONES: No acute fracture is present. No bony destructive lesion is seen. Visualized portion of elbow and wrist joints are unremarkable. SOFT TISSUE: Normal. No radiopaque foreign body. IMPRESSION: Unremarkable radiographs of the left forearm. DATA REPOSITORY: RADIATION DOSE DELIVERED:
[2021-05-19 17:47] VITALS: BP 144/104; PULSE 118; RESP 18; TEMP 37.3; O2SAT 97
--- NOTE | 2021-05-19 17:49 | ED.GENADUL_ITS ---
Discharge Plan Disposition Patient Disposition: HOME Condition: Stable Discharge Details Clinical Impression: Encounter for removal of sutures Primary Care Provider: Polina Darby ED Provider: Malcolm Ruiz Home Meds and New Rx's Prescriptions: New cephalexin 500 mg capsule 500 mg PO QID 10 Days Qty: 40 RF: 0 Continued gabapentin 800 mg tablet 800 mg PO TID Qty: 90 RF: 11 Discharge Instructions Instructions: Stitches Removal (ED) Additional Instructions: X-ray does not reveal any obvious foreign body and the 2 sutures removed without difficulty. There does appear to be localized irritation but I do not see obvious signs of true infection. You may apply antibiotic ointment daily. Warm compresses every 2 hours for 20 minutes. Please watch for new or worsening symptoms and return to the ER for any concerns. I am providing you with a prescription for cephalexin that you may still if it appears as though an infection is starting. Discharge Data Discharge Date/Time-TO BE ENTERED AT DEPARTURE: 05/19/21 18:20 Medical Decision Making 35-year-old male presents for suture removal and localized irritation. Patient also concerned that he may require an x-ray. Neuro, vascular, tendon intact. Local irritation but I see no evidence of true cellulitis or drainage. Triage heart rate was 118, patient admits that he does not like hospitals and he is nervous, during my evaluation it is in the 90s, he is afebrile. We will remove the 2 sutures. Obtain x-ray, and reassess X-ray obtained, unremarkable Sutures removed without difficulty. No drainage noted upon removal of the sutures. Discussed options. Will apply antibiotic ointment, dressing, recommend warm compresses every 2 hours for 20 minutes. I will provide the patient with a prescription for Keflex if his symptoms do not improve or in fact worsening over the next 24-36. Patient is comfortable with this plan and has no additional questions or concerns. Standard discharge and return precautions given This documentation was generated using Tech[employer]euation system, please disregard any oddities of phrase or misspellings. Medical Records Medical records reviewed: Yes I reviewed the patient's medical records. Imaging Data Radiologic Study: Attestation: I personally reviewed and interpreted this imaging study as follows: Radiologist's impression: PROCEDURE INFORMATION: Exam: XR Left Forearm Exam date and time: 05/19/2021 5:55 PM Age: 35 years old Clinical indication: Other: Lac, fb? TECHNIQUE: Imaging protocol: XR Left forearm. Views: 2 views. COMPARISON: No relevant prior studies available. FINDINGS: Bones/joints: Normal. Soft tissues: Normal. No radiopaque foreign body. IMPRESSION: No acute findings. HPI General Mode of arrival: ambulatory . Date/Time Provider Initiated Documentation: 05/19/21 17:44 . Limitations to Documentation: no limitations . Information obtained by: patient . HPI Narrative: This is a 35-year-old male, [id number], presenting for left forearm suture removal. Sutures, 2, replaced on 05-12. Patient states that over the past 24 hours he noticed that the area looks slightly irritated, red, and upon squeezing the area firmly he noticed a small amount of fluid came from around the sutures. He reports pain only if he palpates the laceration. He denies fever, rash elsewhere in his body, numbness, tingling, weakness. Has not taken any medication for his symptoms. Patient states that he is concerned there may be a foreign body and questions if he should have an x-ray Related Data Home Medications Medication Instructions Recorded Confirmed gabapentin 800 mg tablet 800 mg PO TID #90 tab 02/01/19 05/19/21 cephalexin 500 mg PO QID 10 Days #40 cap 05/19/21 Previous Rx's Medication Instructions Recorded gabapentin 800 mg tablet 800 mg PO TID #90 tab 02/01/19 cephalexin 500 mg PO QID 10 Days #40 cap 05/19/21 Allergies Allergy/AdvReac Type Severity Reaction Status Date / Time lisdexamfetamine dimesylate AdvReac Severe Auditory Verified 05/19/21 17:49 [From Sylvia] Hallucination sertraline AdvReac Severe anger Verified 05/19/21 17:49 General SLY: 4 Review of Systems Constitutional Constitutional: Denies fever(s) Musculoskeletal Musculoskeletal: Denies arthralgias, Denies numbness, Denies stiffness and Denies tingling Integumentary/Breasts Skin/Breast: Reports erythema Neurologic Neurologic: Denies numbness and Denies tingling [facility] Medical History Abdominal adhesions (07/29/16) Explor lap 2018 Abnormal abdominal ultrasound Acute appendicitis (~05/2015) Depression (03/12/17) Esophagitis with gastritis 02/2018 colonoscopy & upper EGD: severe reflux esophagitis with ulceration, gastritis, peptic duodenitis; neg H. Pylori, neg gluten sensitivity Abd pain better s/p course of H2 blockers [facility] 06/2018 Family history of diabetes mellitus (07/29/16) Inflammatory bowel diseases (IBD) (~02/2018) Not identified on 03/03/18 colonoscopy & upper EGD, so ruled-out Intentional amphetamine overdose 04/05/2019 Intentional self-harm by blunt object, initial encounter (01/13/18) Cutting (arms/legs) Intussusception intestine (~02/2018) Question of, not confirmed PTSD (post-traumatic stress disorder) (03/12/17) Substance use disorder (12/22/17) Tramadol ([facility] 2017) Vyvanse ([facility] [place]) Amphetamine OD ([facility] 04/05/2019) Amphetamine OD (10/2019, [facility]) Amphetamine OD (01/2020, [facility]) Tobacco use disorder (07/29/16) Cigs 1PPD Tubular adenoma of colon (03/03/18) Rectal polyp pathology 03/03/2018 Repeat colonoscopy 2022 Surgical History Appendectomy (06/15/15) Dr Holguin Colonoscopy - MAC (03/03/18) EGD - MAC (03/03/18) Laparotomy (12/05/17) Resolved intussuscepption, possible inflammatory bowel disease Family History Mother Mental disorder Manic depression and bipolar Father Essential hypertension Ulcerative colitis Other Asthma Social History Smoking/Tobacco Use Status: Current every day Tobacco Type: cigarettes Tobacco: How many years used: 13 Quit status: not considering quitting Counseling given: patient declined Smoking risk assessment performed?: Yes Alcohol Intake: current Alcohol Intake frequency: holidays/special occasions only Alcohol type: beer Drug use: Never Substance use type: does not use Household members: spouse and children Housing: apartment Number of Children: 3 current occupation: cares for with [employer] Pets and animals: Yes (Dog) Sexually active: Yes Current gender identity: male Do you feel safe at home: Yes Do you feel safe in your relationship?: Yes Additional Social history: pt is not able to answer the safety question Exam Const General: cooperative, healthy appearing, comfortable and no acute distress Orientation: alert and awake [facility] Head: normal to inspection, normocephalic and atraumatic Eyes Conjunctivae: conjunctivae normal Neck Neck: normal visual inspection, trachea midline and supple Resp Effort & Inspection: normal respiratory effort and able to speak in complete sentences Cardio Rate: regular rate Rhythm: regular rhythm Skin General skin exam: erythema Neuro General: patient alert, patient awake, moves all extremities and no focal motor deficits Cognition: normal cognition Speech: speech normal Gait: normal gait Sensory Exam: no sensory deficits noted Extrem General: full ROM and capillary refill normal Elbow/forearm/wrist images: 1. Profile approximated laceration with 2 sutures. Locally there is a minimal amount of erythema. No warmth or discomfort. There is no active drainage, induration or fluctuance. Neuro, vascular, tendon intact. Normal capillary refill and radial pulse. No obvious signs of foreign body. Psych Appearance: grossly normal Mental Status: mental status grossly normal
--- NOTE | 2021-05-19 18:26 | DI.VRAD_ITS ---
PROCEDURE INFORMATION: Exam: XR Left Forearm Exam date and time: 05/19/2021 5:55 PM Age: 35 years old Clinical indication: Other: Lac, fb? TECHNIQUE: Imaging protocol: XR Left forearm. Views: 2 views. COMPARISON: No relevant prior studies available. FINDINGS: Bones/joints: Normal. Soft tissues: Normal. No radiopaque foreign body. IMPRESSION: No acute findings. Dictated and Authenticated by: Jerry Carranza MD. Ordering:MAX Fowler MD
== END 2021-05-19 18:20 | disposition home or self-care (01) ==
PROVIDERS: Emergency Provider Physician Assistant; PCP Nurse Practitioner Adult Health
DX: S51.812D Laceration without foreign body of left forearm, subsequent encounter (principal); X58.XXXD Exposure to other specified factors, subsequent encounter; L53.8 Other specified erythematous conditions; Z48.02 Encounter for removal of sutures
CPT/HCPCS: 99283; 73090; 99282

== ENCOUNTER 2021-05-25 04:13 | Outpatient (CLI) | payer MEDICAID, SELFPAY ==
--- NOTE | 2021-05-25 07:30 | DI.CT_ITS ---
Exam(s) CT ABDOMEN PELVIS W EXAM: CT ABDOMEN PELVIS W CLINICAL HISTORY: assess for LLQ hernia per pt's hx abd U/S 04/2021,LT GROIN AND LLQ PAIN TECHNIQUE: COMPARISON: CT ABD PELVIS WITH CONTRAST from 12/05/2017 FINDINGS: CT examination of the abdomen and pelvis was performed with bolus infusion of 100 cc of Omnipaque 350 . Images obtained through the lung bases are unremarkable. The liver appears normal with no evidence of a focal mass. Spleen is unremarkable in appearance.. Gallbladder and bile ducts are unremarkable. Pancreas is unremarkable in appearance. Adrenals appear normal bilaterally. Kidneys appear normal with no evidence of renal mass, hydronephrosis, or nephrolithiasis. Unremarkab le bladder. There is no evidence of abdominal or pelvic adenopathy. Abdominal aorta is of normal diameter and no abnormality is seen involving major visceral branches.. Appendix is not specifically visualized but there is no evidence of appendicitis or diverticulitis.. No evidence diverticulitis or bowel obstruction. There are tiny bilateral fat containing inguinal hernias. No bowel involvement. No evidence of asso ciated inflammation. Impression: Tiny bilateral fat containing inguinal hernias. No other significant findings. RADIATION DOSE DELIVERED: 1,017.29mGy.cm Total DLP 1,017.29mGy.cm Total DLP 18.95mGy CTDIvol DATA REPOSITORY: All CT scans at this facility are submitted to the National Radiology Data Registry (NRDR) Dose Index Registry (DIR) with the [employer] (A[employer]). RADIATION OPTIMIZATION: All CT scans at this facility use at least one of these dose optimization te chniques: automated exposure control; mA and/or kV adjustment per patient size (includes targeted exa ms where dose is matched to clinical indication); or iterative reconstruction.
[2021-05-25] MEDS: Breeza Beverage 473 ML BTL PO (11:33)
[2021-05-25] MEDS: Omnipaque 350 MG/ML 50 ML BTL PO (11:33)
[2021-05-25] MEDS: Omnipaque 350 MG/ML 100 ML BTL IV (12:47)
== END 2021-05-25 04:33 ==
PROVIDERS: PCP Nurse Practitioner Adult Health; Visit Provider Nurse Practitioner Adult Health
DX: R10.32 Left lower quadrant pain (principal); R93.5 Abnormal findings on diagnostic imaging of other abdominal regions, including retroperitoneum; K40.20 Bilateral inguinal hernia, without obstruction or gangrene, not specified as recurrent
CPT/HCPCS: 74177; J3490; Q9967

== ENCOUNTER 2021-06-05 02:10 | Outpatient (CLI) | payer MEDICAID, SELFPAY ==
[2021-06-05 11:23] LABS: Source Nasal/Nares
[2021-06-05 14:14] LABS: COVID-19 PCR Negative (Negative)
== END 2021-06-05 02:11 | disposition home or self-care (01) ==
LOC: LBO 02:11
PROVIDERS: PCP Nurse Practitioner Adult Health; Visit Provider Surgery
DX: Z20.822 Contact with and (suspected) exposure to COVID-19 (principal); Z01.818 Encounter for other preprocedural examination
CPT/HCPCS: 87635

== ENCOUNTER 2021-09-28 16:45 | Outpatient (REF) | payer MEDICAID, SELFPAY ==
[2021-09-30 18:22] LABS: COVID-19 RT-PCR UVMMC Result Negative (Negative)
== END 2021-09-28 16:46 | disposition home or self-care (01) ==
LOC: LBN 16:45
PROVIDERS: PCP Nurse Practitioner Adult Health; Visit Provider Nurse Practitioner Adult Health
DX: J02.9 Acute pharyngitis, unspecified (principal); R53.83 Other fatigue; R59.9 Enlarged lymph nodes, unspecified; Z20.822 Contact with and (suspected) exposure to COVID-19
CPT/HCPCS: U0003; 87070

== ENCOUNTER 2021-11-09 01:15 | Outpatient (CLI) | payer MEDICAID, SELFPAY ==
[2021-11-09 12:53] LABS: Source Nasal/Nares
[2021-11-09 21:03] LABS: COVID-19 PCR Negative (Negative)
== END 2021-11-09 01:16 | disposition home or self-care (01) ==
LOC: LBO 01:15
PROVIDERS: PCP Nurse Practitioner Adult Health; Visit Provider Surgery
DX: Z20.822 Contact with and (suspected) exposure to COVID-19 (principal)
CPT/HCPCS: 87635

== ENCOUNTER 2021-11-12 10:35 | Day surgery (SDC) | payer MEDICAID, SELFPAY ==
--- NOTE | 2021-11-12 06:40 | W.PM.ENDDOP ---
Date of service: 11/12/21 Time of Service: 13:57 Endoscopy Report DATE OF PROCEDURE: 11/12/21 PRE-OP DIAGNOSIS: Cjronic diarrhea, Hx of colon polyp, Heart Burn PROCEDURE: EGD aborted due to respiratory issues. SURGEON: Rosy Wheeler ANESTHESIA TYPE: General:No Airway COMPLICATIONS: None DISPOSITION: same day INDICATIONS: Malcolm is back to see me today as he wishes to have another colonoscopy and upper endoscopy.? He had a colonoscopy back in 2018 for chronic diarrhea.? Biopsies were negative for ulcerative colitis, Crohn's, microscopic colitis.? He did see gastroenterology who recommended the FODMAP diet as well as stool studies.? He did not do the stool cultures and did not really follow the FODMAP diet either.? He has decreased bread intake and spicy food intake and that seems to help somewhat.? He is concerned because he is having increased diarrhea at this point.? I did explain to him that he more than likely had his IBS and at his diarrhea is going to fluctuate depending on stress level and the foods that he is eating.? Because he did have a tubular adenoma back in 2018 it is reasonable to do another colonoscopy to make sure that he does not have any other polyps.? He would like to have another upper endoscopy to again try to rule out celiac disease.? He is having some heartburn although it seems to be better than in 2018. I discussed the risks, benefits and complications of a colonoscopy and upper endoscopy.? I reviewed with him the fact that this may end up being a diagnostic colonoscopy which means it would go against his deductible.? He understands and wishes to proceed. Risks, benefits and complications have been reviewed. Complications include but are not limited to bleeding, pain, perforation, missed small lesion/polyp, sore throat, aspiration and adverse reaction to the medications. Questions were entertained and answered to their satisfaction and they wished to proceed. No guarantees were given or implied. Proceed with colonoscopy and upper endoscopy under sedation PROCEDURE DESCRIPTION: Procedure aborted
--- NOTE | 2021-11-12 06:42 | PDOC.DSDIS_ITS ---
Discharge Plan Disposition Patient Disposition: HOME Condition: Good Discharge Details Reason For Visit: Colonoscopy and EGD Attending Provider: Rosy Wheeler Primary Care Provider: Polina Darby Home Meds and New Rx's Prescriptions: Continued gabapentin 800 mg tablet 800 mg PO TID Qty: 90 11RF Rx Instructions: DR. CACERES TAKING OVER RX 01/2019 Discontinued bisacodyl [Dulcolax (bisacodyl)] 5 mg tablet,delayed release (DR/EC) 5 mg PO ONCE Qty: 4 0RF Rx Instructions: Take according to provider's instructions for colonoscopy prep. polyethylene glycol 3350 17 gram/dose powder 17 g PO ONCE Qty: 238 0RF Rx Instructions: To be taken as directed by prescriber's office for colonoscopy prep. Discharge Instructions Additional Instructions: Findings: Unable to complete the procedures due to a airway spasm. Follow up: You can call to reschedule at your earliest convinience Please call if you develop: fevers >101.5 Nausea or Vomiting Abdominal pain that is not transient Rectal bleeding that is more then a tbsp A hard abdomen and inability to pass gas DAY SURGERY UNIT POST ENDOSCOPY INSTRUCTIONS Instructions for everyone who is given Anesthesia: For your safety, please do the following for the next 24 Hours: a. Do not drive or operate dangerous equipment b. Do not drink alcohol beverages or use any recreational drugs for the first 24 hours or while taking pain medications. The medications in your body may have a reaction that can be dangerous. c. Do not make any important decisions or sign any important papers 1. Generally there are no restrictions on your activity after a day or so has gone by, but you may feel a bit fatigued for a few days. 2. After you arrive home you may have a light meal and return to a normal diet as you can tolerate it without feeling sick to your stomach. 3. After surgery, you may feel pain or discomfort. This should be only burnett sient, but if it persists please contact your doctor. 4. If there are any questions regarding the findings of your procedure, please feel free to contact your doctor. 6. If you are unable to contact your doctor with a problem, contact the hospital at [phone]. 7. Continue all your regular medications unless directed otherwise. I understand the above instructions and have no questions. Signature of Patient or Responsible Adult Escort Date/Time Name of Responsible Adult Escort Signature of Nurse Date/Time Stand Alone Forms: Anesthesia Discharge Inst., Hilary Burgos (DSU) Activity:: Activity as Tolerated Diet:: As Tolerated Discharge Orders Discharge Orders: Discharge Order (Routine); Ordered 11/12/21 Ordered By: Rosy Wheeler
[2021-11-12 10:40] VITALS: BP 128/102; PULSE 92; RESP 18; TEMP 36.4; O2SAT 98
[2021-11-12] MEDS: Lactated Ringers 1,000 ML 80 ML IV (11:09)
--- NOTE | 2021-11-12 12:03 | ANES.PREOP_ITS ---
General Info Date of Service Date Performed: 11/12/21 Height: 5 ft 7 in Weight: 104.7 kg Body Mass Index (BMI): 36.1 Surgical Procedure: Operation Date: 11/12/21 12:35 Proposed Procedure Side Surgeon p Colonoscopy/Gastroscopy Rosy Wheeler MD Meds Allergies and Home Medications Allergies Allergy/AdvReac Type Severity Reaction Status Date / Time lisdexamfetamine dimesylate AdvReac Severe Auditory Verified 11/12/21 10:48 [From Sylvia] Hallucination sertraline AdvReac Severe anger Verified 11/12/21 10:48 Home Medication Medication Instructions Recorded gabapentin 800 mg tablet 800 mg PO TID #90 tab 02/01/19 bisacodyl 5 mg tablet,delayed 5 mg PO ONCE #4 tab 11/06/21 release (Dulcolax (bisacodyl)) polyethylene glycol 3350 17 17 g PO ONCE #238 g 11/06/21 gram/dose oral powder Current Visit Medications: Current Medications Generic Name Dose Route Start Last Admin Trade Name Ripq PRN Reason Stop Dose Admin Hyoscyamine Sulfate 0.125 mg 11/12/21 06:42 Hyoscyamine 0.125 Mg Sl/Oral/Chew SL DIRECTED PRN Ringer's Solution 1,000 mls @ 80 mls/hr 11/12/21 06:00 11/12/21 11:09 IV 12/09/21 23:59 80 mls/hr INFUSION LUIS FELIPE Administration IV Miscellaneous Supplies 1 each 11/12/21 06:00 Iv Access IV 12/09/21 23:59 DIRECTED LUIS FELIPE Ondansetron HCl 4 mg 11/12/21 06:42 Ondansetron 4 Mg/2 Ml Vial IVP Q4H PRN PRN Nausea / Vomiting Sodium Chloride 0 ml 11/12/21 06:00 Normal Saline Flush 10 Ml Syr IV 12/09/21 23:59 PRN PRN Sodium Chloride 0 ml 11/12/21 06:00 Normal Saline 10 Ml Vial IJ 12/09/21 23:59 DIRECTED PRN Sterile Water 0 ml 11/12/21 06:00 Water,Injection,Sterile 10 Ml Vial IJ 12/09/21 23:59 DIRECTED PRN PFSH Active Problems Active Problems: Problem Status Onset Code Tubular adenoma of colon 03/03/18 D12.6 Tobacco use disorder 07/29/16 F17.200 Substance use disorder 12/22/17 F19.90 PTSD (post-traumatic stress disorder) 03/12/17 F43.10 Abdominal adhesions 07/29/16 Ulcerative esophagitis K22.10 Abnormal abdominal ultrasound R93.5 Encounter for removal of sutures Z48.02 Chronic diarrhea K52.9 Medical History Medical History Acute appendicitis (~05/2015) ADHD Combined Type 12/29/18 Dr Mujica Avoid stimulants/amphetamines s/p several ODs with RX & non-RX meds Bursitis of right shoulder Cubital tunnel syndrome on right Depression (03/12/17) Elevated blood pressure reading (07/29/16) Esophagitis with gastritis 02/2018 colonoscopy & upper EGD: severe reflux esophagitis with ulceration, gastritis, peptic duodenitis; neg H. Pylori, neg gluten sensitivity Abd pain better s/p course of H2 blockers [facility] [place] consult 06/2018 Family history of diabetes mellitus (07/29/16) Impaired fasting glucose 110, 07/2020 labs; 5.8% 04/2021 Inflammatory bowel diseases (IBD) (~02/2018) Not identified on 03/03/18 colonoscopy & upper EGD, so ruled-out Intentional amphetamine overdose 04/05/2019 Intentional self-harm by blunt object, initial encounter (01/13/18) Cutting (arms/legs) Intussusception intestine (~02/2018) Question of, not confirmed Laceration of forearm SARS-CoV-2 positive (~06/2021) 06/2021 SLAP lesion of right shoulder Tendonitis of long head of biceps brachii of right shoulder Medical History Comments:: Pt. states per his PTSD, any sudden loud noises set him off. Surgical History Surgical History (Updated 11/12/21 @ 10:46 by Silvia Arzola) Appendectomy (06/15/15) Dr Holguin Colonoscopy - MAC (03/03/18) EGD - MAC (03/03/18) History of appendectomy History of colonoscopy History of esophagogastroduodenoscopy (EGD) History of hernia repair History of laparotomy Laparotomy (12/05/17) Resolved intussuscepption, possible inflammatory bowel disease Tobacco Smoking/Tobacco Use Status: Current every day Tobacco Type: cigarettes Counseling given: patient declined Alcohol Alcohol Intake: current Alcohol intake frequency: holidays/special occasions only Alcohol type: beer Substance Use Substance use: Never Substance use type: former substance user Vital Signs and Lab Results Vital Signs Most Recent Vital Signs in EMR: Most Recent Vital Signs Temp Pulse Resp BP Pulse Ox 36.4 C L 92 H 18 128/102 H 98 11/12/21 10:40 11/12/21 10:40 11/12/21 10:40 11/12/21 10:40 11/12/21 10:40 Lab Results Blood Type / Crossmatch: No Data to Display Complete Blood Count: No Data to Display Complete Metabolic Panel: No Data to Display Liver Function Panel: No Data to Display Coagulation Panel: No Data to Display Cardiac Panel: No Data to Display Arterial Blood Gas: No Data to Display Venous Blood Gas: No Data to Display Pancreas Panel: No Data to Display Thyroid Panel: No Data to Display Infectious Disease: Coronavirus (COVID-19)(PCR) Negative (Negative) 11/09/21 09:25 11/09/21 Coronavirus 2019 Source Nasal/Nares 11/09/21 09:25 11/09/21 Blood Cultures: No Data to Display Toxicology Panel: No Data to Display Anesthesia Assessment and Plan Anesthesia History Personal History: No History of Anesthesia Complications Family History: No Family History of Anesthesia Complications Exercise Tolerance Exercise Tolerance: Metabolic Equivalents>4 Pertinent Negatives Pertinent Negatives: No Major Cardiovascular Symptoms or Complaints, No Major Pulmonary Symptoms or Complaints and No History of CVA/TIA Cardiac & Pulmonary Exam Cardiac Exam: Normal S1/S2 Heart Sounds Pulmonary Exam: Clear Bilateral Breath Sounds Implantable Cardiac Device Does patient have a Pacemaker or an ICD?: No Airway Exam Known Difficult Airway: No Mallampati Class: 1 Mouth Opening: Normal (> 3cm) Thyromental Distance: Greater than 3 cm Neck Range of Motion: Full ROM Neck Circumference: Normal Teeth Condition: Normal Dentition ASA Classification ASA Score: ASA 2 Emergency Case?: No NPO Status NPO Status: NPO Clears >2 hours, Solids >8 hours Anesthesia Plan Resuscitation Status: Full Code Anesthesia Technique: General Anesthesia Airway Planned: Natural Airway Monitors Used: Standard Monitors
[2021-11-12 12:33] VITALS: BMI 36.1
[2021-11-12 13:01] VITALS: BP 144/92; PULSE 125; RESP 12; TEMP 37.1; O2SAT 96
[2021-11-12 13:05] VITALS: BP 124/94; PULSE 97; RESP 13; TEMP 37.1; O2SAT 96
[2021-11-12 13:10] VITALS: BP 136/91; PULSE 107; RESP 12; TEMP 37.1; O2SAT 95
[2021-11-12 13:25] VITALS: BP 140/91; PULSE 99; RESP 10; TEMP 37.1; O2SAT 96
[2021-11-12 13:55] VITALS: BP 132/82; PULSE 111; RESP 18; TEMP 37; O2SAT 96
--- NOTE | 2021-11-12 14:43 | W.ANESPOSTOP ---
Postoperative Evaluation Date, Time and Location Date Performed: 11/12/21 Time Performed: 13:55 Patient Location: Day Surgery Unit Vital Signs Most Recent Imported Vital Signs: Most Recent Vital Signs Temp Pulse Resp BP Pulse Ox 37 C 111 H 18 132/82 96 11/12/21 13:55 11/12/21 13:55 11/12/21 13:55 11/12/21 13:55 11/12/21 13:55 Pain Score Most Recent Pain Score: Most Recent Pain Score Pain Level 0 11/12/21 13:55 Assessment Mental Status: Awake (Alert & Oriented to Patient Baseline) Airway and Respiratory Function: Patent airway with normal (patient baseline) respiratory exam Cardiovascular Function: Hemodynamically Stable Hydration Status: Adequately Hydrated Nausea & Vomiting: No Nausea or Vomiting Pain: Pt. Denies Any Pain Peripheral Nerve Block: Patient did not receive a nerve block Teaching Patient Teaching: Other (Discussed intraoperative reactive airway with desaturation. Patient doing very well in DSU. Discussed plan of endotracheal tube for the next anesthetic for more control of the airway. )
== END 2021-11-12 14:15 | disposition home or self-care (01) ==
LOC: SUR 10:35
PROVIDERS: PCP Nurse Practitioner Adult Health; Visit Provider Surgery
PROC: (CPT 43235; principal; 2021-11-12 12:30)
DX: Z53.09 Procedure and treatment not carried out because of other contraindication (principal); R09.02 Hypoxemia; K52.9 Noninfective gastroenteritis and colitis, unspecified; Z86.010 Personal history of colon polyps; R12 Heartburn
CPT/HCPCS: 43235; 45378; J2001

== ENCOUNTER 2021-11-26 04:07 | Outpatient (CLI) | payer MEDICAID, SELFPAY ==
[2021-11-26 09:38] LABS: Source Nasal/Nares
[2021-11-26 12:56] LABS: COVID-19 PCR Negative (Negative)
== END 2021-11-26 04:08 | disposition home or self-care (01) ==
LOC: LBO 04:08
PROVIDERS: PCP Nurse Practitioner Adult Health; Visit Provider Surgery
DX: Z20.822 Contact with and (suspected) exposure to COVID-19 (principal); Z01.818 Encounter for other preprocedural examination
CPT/HCPCS: 87635

== ENCOUNTER 2021-11-28 06:12 | Day surgery (SDC) | payer MEDICAID, SELFPAY ==
[2021-11-28] VITALS (9 sets, daily range): BP systolic 101–125; BP diastolic 37–87; PULSE 76–86; RESP 11–98; TEMP 36.3–36.6; O2SAT 94–100; BMI 35.9
--- NOTE | 2021-11-28 06:30 | ROE_ITS ---
Date of service: 11/28/21 Time of Service: 08:36 Operative Note Operative Note DATE OF PROCEDURE: 11/28/21 PRE-OP DIAGNOSIS: left inguinal hernia POST-OP DIAGNOSIS: same (Left indirect inguinal hernia) PROCEDURE: Left inguinal hernia repair with mesh SURGEON: Rosy Wheeler DOCKETING SPECIALIST: Stella Israel ANESTHESIA TYPE: Local By Surgeon, General LMA/ETT and Primary Nerve Block Refer to Anesthesia Record PATHOLOGY: none sent COMPLICATIONS: None Patient was transported to: PACU Patient's condition: stable Implants: Bard Mesh: LOT- [id number] REF- [id number] 01-17-2026 Indications: Malcolm has known small bilateral inguinal hernias.? Per CT scan they had a small amount of fat within them.? He does feel like his left inguinal hernia has gotten larger and it is more painful than it was last year.? He would like to have this repaired.? Risks and benefits were reviewed with him.? I especially reviewed the possibility of chronic pain due to the mesh or due to nerve injury.? He understands and wishes to proceed. Risks, benefits and complications have been reviewed. Complications include but are not limited to bleeding, infection, injury to vas, vessels and nerves, injury to bowel and adverse reaction to medications. Questions were entertained and answered to their satisfaction and they wished to proceed. Proceed with left inguinal hernia repair Findings: Moderate sized indirect inguinal hernia Procedure Description: After informed consent was obtained the patient was taken to the operating room and placed in a supine position. Monitors and SCDs were applied and a timeout was done. The patient's name, date of , procedure type, procedure site, allergies to medications, preoperative antibiotic, and DVT prophylaxis were all reviewed. Fire risk was assessed. Next anesthesia did a tap block on the right side under ultrasound guidance. Please see their separate dictation. Once anesthesia was done the abdomen was prepped and draped in a sterile surgical fashion. 0.5% Marcaine mixed with exparel was injected into the dermis in the left lower quadrant. An incision was made with a 10 blade in the left lower quadrant. Dissection was done with cautery through the subcutaneous tissues and Cleveland's fascia down to the external oblique fascia. The external ring was identified and the external oblique fascia was opened sharply through the external ring. The cut fascia was grasped with hemostats the cord structures were identified and a Erin drain was placed around them. The ilioinguinal nerve was identified and cut. The cremasteric muscle was dissected away from the cord structures using both cautery and blunt dissection. Fat was identified and removed from the cord structures using blunt dissection. Some more fat was noted coming through a moderately sized indirect hernia defect. The fat was reduced. The remnant was pushed back into the peritoneum. A plug was placed into the indirect defect and secured with 3-0 proline. A flat piece of mesh was then attached to the lacunar ligament using a 2-0 Prolene double armed suture. The mesh was secured laterally and medially with a 2-0 Prolene, with a running suture. The tails of the mesh were wrapped around the cord structures effectively cinching down the internal ring. Once the mesh was secured the tissues were irrigated with some normal saline. No bleeding was identified. The external oblique fascia was reapproximated using 2-0 Vicryl running suture. The Cleveland's fascia was reapproximated using interrupted 3-0 Vicryl. The dermis was reapproximated with a running 4-0 Vicryl. The rest of the Local mixture was injected into the dermis and subcutaneous tissue. The skin was cleaned and dried and skin affix was applied. The patient was woken up and taken back to recovery in stable condition. There were no immediate complications. Sponge, instrument and needle counts were correct at the end of the case x2.
--- NOTE | 2021-11-28 06:31 | PDOC.DSDIS_ITS ---
Discharge Plan Disposition Patient Disposition: HOME Condition: Good Discharge Details Reason For Visit: Left inguinal hernia Attending Provider: Rosy Wheeler Primary Care Provider: Polina Darby Home Meds and New Rx's Prescriptions: Continued gabapentin 800 mg tablet 800 mg PO TID Qty: 90 11RF Rx Instructions: DR. CACERES TAKING OVER RX 01/2019 amoxicillin 500 mg Capsule 500 mg PO BID 0RF prednisone 10 mg Tablet 10 mg PO DAILY 0RF Discharge Instructions Additional Instructions: Activity at Home after surgery: 1. Make sure you walk outside at least 4 times per day 2. You should be able to climb a flight of stairs 3. No driving while in pain or taking pain medications 4. No strenuous activity or heavy lifting for 4 weeks (open surgery) Diet, Nutrition, & wound healin. Avoid alcohol until after you are recovered from your surgery 2. Make sure to eat plenty of lean protein (meat, fish, eggs, cottage cheese, beans) 3. Eat a variety of fruits and vegetables. Eat plenty of high fiber foods to avoid constipation. 4. Drink plenty of liquids to stay hydrated and avoid constipation Pain Medications: 1. Tylenol 650mg every 6 hours as needed and Ibuprofen 600 mg every 6 hours as needed. You may alternate between the 2 medications every 3 hours 2. If a narcotic has been prescribed take as directed only for breakthrough pain For Constipation: 1. Take Milk of Magnesia or MiraLax as needed for constipation Other: 1. You may shower daily. Do not scrub the incisions 2. Do not soak the incisions for 1 week 3. You may alternate ice and heat as needed for pain and swelling Wound Care: 1. Keep the incisions clean and dry Please call our office if you develop: 1. Fevers >101.5 2. Nausea or Vomiting 3. Worsening pain 4. Redness and thick discharge from the wounds If after hours please call the Hospital at and ask to speak to the on-call surgeon Referrals: Rosy Wheeler MD [ [facility] STAFF PHYSICIAN] - 12/14/21 11:30 am Activity:: as above Remove Dressings/Wound Care:: Do Not Remove Shower/Bathe:: 24 hours Diet:: As Tolerated Discharge Orders Discharge Orders: Discharge Order (Routine); Ordered 11/28/21 Ordered By: Rosy Wheeler
[2021-11-28] MEDS: Lactated Ringers 1,000 ML 80 ML IV (06:44)
[2021-11-28] MEDS: Acetaminophen 500 MG TAB 1000 MG PO (06:54)
[2021-11-28] MEDS: Celecoxib 200 MG CAP PO (06:54)
--- NOTE | 2021-11-28 07:02 | W.ANESPRE ---
General Info Date of Service Date Performed: 11/28/21 Height: 5 ft 7 in Weight: 104.2 kg Body Mass Index (BMI): 35.9 Surgical Procedure: Operation Date: 11/28/21 07:40 Proposed Procedure Side Surgeon p Herniorrhaphy Inguinal Repair w/ Mesh Lt Left Rosy Wheeler MD Meds Allergies and Home Medications Allergies Allergy/AdvReac Type Severity Reaction Status Date / Time lisdexamfetamine dimesylate AdvReac Severe Auditory Verified 11/28/21 06:23 [From Sylvia] Hallucination sertraline AdvReac Severe anger Verified 11/28/21 06:23 Home Medication Medication Instructions Recorded gabapentin 800 mg tablet 800 mg PO TID #90 tab 02/01/19 amoxicillin 500 mg capsule 500 mg PO BID 11/28/21 prednisone 10 mg tablet 10 mg PO DAILY 11/28/21 Current Visit Medications: Current Medications Generic Name Dose Route Start Last Admin Trade Name Freq PRN Reason Stop Dose Admin Acetaminophen 1,000 mg 11/28/21 06:00 11/28/21 06:54 Acetaminophen 500 Mg Tab PO 11/28/21 23:59 1,000 mg PREOP LUIS FELIPE Administration Celecoxib 200 mg 11/28/21 06:00 11/28/21 06:54 Celecoxib 200 Mg Cap PO 11/28/21 23:59 200 mg PREOP LUIS FELIPE Administration Ringer's Solution 1,000 mls @ 80 mls/hr 11/28/21 06:00 11/28/21 06:44 IV 12/20/21 23:59 80 mls/hr INFUSION LUIS FELIPE Administration Cefazolin Sodium/Dextrose 2 gm in 50 mls @ 100 mls/hr 11/28/21 06:00 Ancef Duplex IVPB 11/28/21 23:59 PREOP LUIS FELIPE Ondansetron HCl 4 mg/ Sodium 52 mls @ 200 mls/hr 11/28/21 06:33 Chloride IVPB Q6H PRN PRN IV Miscellaneous Supplies 1 each 11/28/21 06:00 Iv Access IV 12/20/21 23:59 DIRECTED LUIS FELIPE Oxycodone HCl 5 mg 11/28/21 06:33 Oxycodone 5 Mg Tab PO Q3H PRN PRN Pain Sodium Chloride 0 ml 11/28/21 06:00 Normal Saline Flush 10 Ml Syr IV 12/20/21 23:59 PRN PRN Sodium Chloride 0 ml 11/28/21 06:00 Normal Saline 10 Ml Vial IJ 12/20/21 23:59 DIRECTED PRN Sterile Water 0 ml 11/28/21 06:00 Water,Injection,Sterile 10 Ml Vial IJ 12/20/21 23:59 DIRECTED PRN PFSH Active Problems Active Problems: Problem Status Onset Code Upper respiratory disease J39.9 Tubular adenoma of colon 03/03/18 D12.6 Tobacco use disorder 07/29/16 F17.200 Substance use disorder 12/22/17 F19.90 PTSD (post-traumatic stress disorder) 03/12/17 F43.10 Abdominal adhesions 07/29/16 Ulcerative esophagitis K22.10 Abnormal abdominal ultrasound R93.5 Encounter for removal of sutures Z48.02 Chronic diarrhea K52.9 Medical History Medical History Acute appendicitis (~05/2015) ADHD Combined Type 12/29/18 Dr Mujica Avoid stimulants/amphetamines s/p several ODs with RX & non-RX meds Bursitis of right shoulder Cubital tunnel syndrome on right Depression (03/12/17) Elevated blood pressure reading (07/29/16) Esophagitis with gastritis 02/2018 colonoscopy & upper EGD: severe reflux esophagitis with ulceration, gastritis, peptic duodenitis; neg H. Pylori, neg gluten sensitivity Abd pain better s/p course of H2 blockers [facility] [place] [facility] [place] 06/2018 Family history of diabetes mellitus (07/29/16) Impaired fasting glucose 110, 07/2020 labs; 5.8% 04/2021 Inflammatory bowel diseases (IBD) (~02/2018) Not identified on 03/03/18 colonoscopy & upper EGD, so ruled-out Intentional amphetamine overdose 04/05/2019 Intentional self-harm by blunt object, initial encounter (01/13/18) Cutting (arms/legs) Intussusception intestine (~02/2018) Question of, not confirmed Laceration of forearm SARS-CoV-2 positive (~06/2021) 06/2021 SLAP lesion of right shoulder Tendonitis of long head of biceps brachii of right shoulder Medical History Comments:: Pt. stated he was here for EGD and colo. on 11/13/21 and then began to produce a lot of mucus, and stated his oxygen levels dropped into the 70's. Pt. states he currently has PND that he has had for months, has been fully worked up. Per [facility]K post note from that procedure: Discussed plan of endotracheal tube for the next anesthetic for more control of the airway. (hx. laryngospasm, and reactive airway). Surgical History Surgical History Appendectomy (06/15/15) Dr Holguin Colonoscopy - MAC (03/03/18) EGD - MAC (03/03/18) History of appendectomy History of colonoscopy History of esophagogastroduodenoscopy (EGD) History of hernia repair History of laparotomy Laparotomy (12/05/17) Resolved intussuscepption, possible inflammatory bowel disease Tobacco Smoking/Tobacco Use Status: Current every day Tobacco Type: cigarettes Counseling given: patient declined Alcohol Alcohol Intake: current Alcohol intake frequency: holidays/special occasions only Alcohol type: beer Substance Use Substance use: Never Substance use type: former substance user Vital Signs and Lab Results Vital Signs Most Recent Vital Signs in EMR: Most Recent Vital Signs Temp Pulse Resp BP Pulse Ox 36.4 C L 83 16 125/81 99 11/28/21 06:26 11/28/21 06:26 11/28/21 06:26 11/28/21 06:26 11/28/21 06:26 Lab Results Blood Type / Crossmatch: No Data to Display Complete Blood Count: No Data to Display Complete Metabolic Panel: No Data to Display Liver Function Panel: No Data to Display Coagulation Panel: No Data to Display Cardiac Panel: No Data to Display Arterial Blood Gas: No Data to Display Venous Blood Gas: No Data to Display Pancreas Panel: No Data to Display Thyroid Panel: No Data to Display Infectious Disease: Coronavirus (COVID-19)(PCR) Negative (Negative) 11/26/21 08:37 11/26/21 Coronavirus 2019 Source Nasal/Nares 11/26/21 08:37 11/26/21 Blood Cultures: No Data to Display Toxicology Panel: No Data to Display Anesthesia Assessment and Plan Anesthesia History Personal History: Other Family History: No Family History of Anesthesia Complications Exercise Tolerance Exercise Tolerance: Metabolic Equivalents>4 Pertinent Negatives Pertinent Negatives: No Symptoms of GERD, No Major Cardiovascular Symptoms or Complaints, No Major Pulmonary Symptoms or Complaints and No History of CVA/TIA Cardiac & Pulmonary Exam Cardiac Exam: Normal S1/S2 Heart Sounds Pulmonary Exam: Clear Bilateral Breath Sounds Implantable Cardiac Device Does patient have a Pacemaker or an ICD?: No Airway Exam Known Difficult Airway: Yes Mallampati Class: 1 Mouth Opening: Normal (> 3cm) Thyromental Distance: Greater than 3 cm Facial Hair: Full Rodriguez Neck Range of Motion: Full ROM Neck Circumference: Normal Teeth Condition: Normal Dentition ASA Classification ASA Score: ASA 2 Emergency Case?: No NPO Status NPO Status: NPO Clears >2 hours, Solids >8 hours Anesthesia Plan Resuscitation Status: Full Code Anesthesia Technique: General Anesthesia Airway Planned: Endotracheal Tube Pain Management: Surgeon and patient request nerve block Monitors Used: Standard Monitors
[2021-11-28] MEDS: ceFAZolin 2 GM/50 ML BAG IVPB (07:25)
[2021-11-28] MEDS: Bupivacaine 0.25% Pres-Free 30 ML VIAL (08:09)
[2021-11-28] MEDS: Bupivacaine LIPOSOME/PF 133 MG/10 ML VIAL IJ (08:10)
--- NOTE | 2021-11-28 08:10 | W.ANESNERVE ---
Nerve Block Single Injection Procedure Date and Time Date Performed: 11/28/21 Procedure Start: 07:32 Location Where Procedure Performed Procedure Location: Operating Room Procedure Stop: 07:41 Reason Performed: Postoperative Analgesia Requesting Provider: Rosy Wheeler Timeout Performed Timeout Performed: Yes Monitoring Used ECG, Blood Pressure, SpO2 and ETCO2 Sterility Sterility: Hand Hygiene, Surgical Cap, Surgical Mask, Sterile Gloves, Eye Protection and Chlorhexidine Sedation Given During Procedure Sedation Given (Indicate Dose Given): No Sedation given (pt intubated and sedated) Patient Mental Status Patient Mental Status: Performed under general anesthesia Nerve Block 1st Nerve Block: Laterality: Left Block Type: TAP Unilateral Needle / Catheter Used: 100mm SonoPlex II Local Anesthetic Bolus (Indicate Dose Given): None, Bupivacaine 0.5% Dose:: 10 ml and Exparel Dose:: 10ml Additives (Indicate Dose Given): None Ultrasound: Sterile probe cover and gel used Ultrasound Image Saved?: Yes Nerve Stimulator: Not Used Paresthesia: None Procedure Tolerated: No Complications Procedure Outcome: Successful Performed By: Juliana Spencer Supervised By: Giovanni Salmon
[2021-11-28] MEDS: Albuterol/Ipratropium 3 ML UPD VIAL UPD (09:15)
[2021-11-28] MEDS: HYDROmorphone 2 MG/ML VIAL IVP (09:42)
[2021-11-28] MEDS: Normal Saline 10 ML VIAL IJ (09:42)
--- NOTE | 2021-11-28 10:58 | W.ANESPOSTOP ---
Postoperative Evaluation Date, Time and Location Date Performed: 11/28/21 Time Performed: 10:58 Patient Location: Day Surgery Unit Vital Signs Most Recent Imported Vital Signs: Most Recent Vital Signs Temp Pulse Resp BP Pulse Ox 36.6 C 76 16 120/87 97 11/28/21 10:42 11/28/21 10:42 11/28/21 10:42 11/28/21 10:42 11/28/21 10:42 Pain Score Most Recent Pain Score: Most Recent Pain Score Pain Level 6 11/28/21 10:42 Assessment Mental Status: Awake (Alert & Oriented to Patient Baseline) Airway and Respiratory Function: Patent airway with normal (patient baseline) respiratory exam Cardiovascular Function: Hemodynamically Stable Hydration Status: Adequately Hydrated Nausea & Vomiting: No Nausea or Vomiting Pain: Pt. Denies Any Pain Peripheral Nerve Block: Patient did not receive a nerve block
== END 2021-11-28 11:03 | disposition home or self-care (01) ==
PROVIDERS: PCP Nurse Practitioner Adult Health; Visit Provider Surgery
PROC: (CPT 49505; principal; 2021-11-28 07:30)
DX: K40.90 Unilateral inguinal hernia, without obstruction or gangrene, not specified as recurrent (principal); F90.2 Attention-deficit hyperactivity disorder, combined type; F32.A Depression, unspecified; R73.01 Impaired fasting glucose; Z86.16 Personal history of COVID-19
CPT/HCPCS: 49505; 76942; A4600; C1781; J0690; J1100; J1885; J2001; J2250; J2405; J7620

== ENCOUNTER 2021-12-06 12:13 | Emergency (ER) | payer MEDICAID, SELFPAY ==
[2021-12-06] VITALS (7 sets, daily range): BP systolic 125–158; BP diastolic 78–99; PULSE 70–106; RESP 18; TEMP 36.5–36.8; O2SAT 97–99
--- NOTE | 2021-12-06 12:30 | DI.CT_ITS ---
Exam(s) CT ABDOMEN PELVIS W EXAM: CT ABDOMEN PELVIS W CLINICAL HISTORY: LLQ pain after hernia repair. TECHNIQUE: Imaging Protocol: Axial computed tomography images with coronal and sagittal reformatted images were created and reviewed CONTRAST MATERIAL: Intravenous: Omnipaque 100cc Oral: None COMPARISON: CT CT ABDOMEN PELVIS W from 05/25/2021 FINDINGS: VISUALIZED LUNG BASES: No nodules nor pleural effusions evident. ABDOMEN: There is no ascites. LIVER: There are no focal hepatic lesions evident . GALLBLADDER/BILIARY: No obvious gallbladder pathology. CBD is not dilated. PANCREAS: No evidence of pancreatic mass nor dilatation of the pancreatic duct. SPLEEN: Spleen is not enlarged. No obvious intrasplenic lesions. Small splenule noted anterior to t he tip of a spleen. The splenic and portal veins are patent. ADRENALS: There are no significant adrenal masses. KIDNEYS:No cysts evident. No solid renal masses. No calculi nor hydronephrosis.. ABDOMINAL AORTA: Abdominal aorta is not enlarged. LYMPH NODES:There is no retroperitoneal nor paraaortic adenopathy. GI: There is no evidence of bowel obstruction, free air, nor abscess. PELVIS: ABDOMINAL WALL: there is evidence of interval left inguinal hernia repair. there is abnormal density in the internal inguinal ring region which is probably small hemorrhage-hematoma. This extends into the subcutaneous fat at this level and there is also overlying skin thickening. There is no drainab le fluid collection in the subcutaneous fat. At the level of the internal inguinal ring the adjacent external iliac artery and vein are intact and patent. GI: The appendix is surgically absent.There is no significant sigmoid diverticular disease and no cristy dence of sigmoid trauma in the left lower quadrant..No free fluid in the dependent aspect of the pelv is. LYMPH NODES: There is no intrapelvic nor inguinal adenopathy. REPRODUCTIVE: prostate and seminal vesicles appear unremarkable. URINARY BLADDER: No calculi nor obvious masses evident OSSEOUS: No significant osseous lesions. IMPRESSION: 1. Left inguinal findings as described above consistent with hematoma. No drainable fluid collection . 2. Adjacent left external iliac artery and vein are intact and nonthrombosed 3. Left lower quadrant sigmoid appears unremarkable. 4. There is no free fluid in the dependent aspect of the pelvis. RADIATION DOSE DELIVERED: 1,063.69mGy.cm Total DLP DATA REPOSITORY: All CT scans at this facility are submitted to the National Radiology Data Registry (NRDR) Dose Index Registry (DIR) with the [employer] ([employer]). RADIATION OPTIMIZATION: All CT scans at this facility use at least one of these dose optimization te chniques: automated exposure control; mA and/or kV adjustment per patient size (includes targeted exa ms where dose is matched to clinical indication); or iterative reconstruction.
--- NOTE | 2021-12-06 12:40 | ED.GENADUL_ITS ---
Discharge Plan Disposition Patient Disposition: HOME Condition: Improving Discharge Details Clinical Impression: Hematoma of groin Primary Care Provider: Polina Darby ED Provider: Chris Turner Home Meds and New Rx's Prescriptions: New ketorolac 10 mg tablet 10 mg PO TID 5 Days Qty: 15 0RF hydromorphone [Dilaudid] 2 mg tablet 2 mg PO Q6H PRN (Reason: pain) Qty: 7 0RF Continued gabapentin 800 mg tablet 800 mg PO TID Qty: 90 11RF Rx Instructions: DR. CACERES TAKING OVER RX 01/2019 Discharge Instructions Instructions: Hematoma (ED) Additional Instructions: Your CAT scan today showed a postoperative hematoma or bruising around the area of the incision. This will continue to slowly absorb over time. May apply ice to area to reduce discomfort. May alternate Tylenol 650 mg with the prescribed Toradol which is similar to ibuprofen. You may also take the prescribed hydromorphone as needed for severe or breakthrough pain. No lifting greater than a gallon of milk or 8 pounds. Please follow-up with Dr. Wheeler in clinic for postop check. Return to the emergency department for any acute concerns. Medical Decision Making This is a 35-year-old male who underwent left inguinal hernia repair on November 28. States she had postoperative pain was well controlled for 2 to 3 days and now moderate to severe left inguinal pain. He has had normal bowel movement and urination. Eating and drinking without difficulty. His postoperative care included an intraoperative nerve block. Patient has significant tenderness overlying his left inguinal region. Differential diagnosis would include abscess, postoperative pain, obstruction. He had IV access established, screening labs obtained patient referred for laboratory testing and CT imaging. White blood cell count is 10.9, hematocrit 51, platelets 351. Lactic acid 1.5. Chemistries unremarkable. AST 28, ALT is 88. CT images: There is hematoma present at the patient's week old surgical site. No evidence of abscess. No other acute findings. Please see the formal report. Patient's pain improved with analgesia. Case discussed with on-call surgery, Dr. Sow. We will manage the patient with oral analgesia. He will have follow-up in surgery clinic. He was instructed as to home management and indications to seek reevaluation. He was consented for the use of a small number of oral narcotic analgesics. HPI General Date/Time Provider Initiated Documentation: 12/06/21 12:14 . Limitations to Documentation: no limitations . Information obtained by: patient . History of Present Illness 35 year old M presents to the emergency department with the chief complaint of Postop left inguinal pain, described as moderate and severe, Quality is described as dull and constant, and is localized to the abdomen, pelvis and left. Patient reports no radiation. Patient started experiencing this day(s) and it has been intermittent. improves with No relieving factors improve symptom(s), No exacerbating factors reported . Patient notes denies fever/chills, loss of appetite and nausea/vomiting. Patient did receive the following treatments prior to arrival, NSAID and cold therapy Related Data Home Medications Medication Instructions Recorded Confirmed gabapentin 800 mg tablet 800 mg PO TID #90 tab 02/01/19 12/06/21 hydromorphone 2 mg tablet 2 mg PO Q6H PRN #7 tab 12/06/21 (Dilaudid) ketorolac 10 mg tablet 10 mg PO TID 5 Days #15 tab 12/06/21 Previous Rx's Medication Instructions Recorded gabapentin 800 mg tablet 800 mg PO TID #90 tab 02/01/19 hydromorphone 2 mg tablet 2 mg PO Q6H PRN #7 tab 12/06/21 (Dilaudid) ketorolac 10 mg tablet 10 mg PO TID 5 Days #15 tab 12/06/21 Allergies Allergy/AdvReac Type Severity Reaction Status Date / Time lisdexamfetamine dimesylate AdvReac Severe Auditory Verified 12/06/21 12:22 [From Vyvanse] Hallucination sertraline AdvReac Severe anger Verified 12/06/21 12:22 General Stated Complaint: Abd Prob SLY: 3 Review of Systems Narrative: No fever or vomiting. Normal bowel movement. Urinating. Denies other recent illness. No trauma or fall. 8 systems were reviewed and otherwise negative PFSH All Active Problems (Updated 12/06/21 @ 14:38 by Chris Turner MD) Hematoma of groin (Acute) Upper respiratory disease (Acute) Tubular adenoma of colon (Chronic 03/03/18) Rectal polyp pathology 03/03/2018 Repeat colonoscopy 2022 Tobacco use disorder (Chronic 07/29/16) Cigs 1PPD Substance use disorder (Chronic 12/22/17) Tramadol ([facility] 2018) [place]se [place] [place]) Amphetamine OD ([facility] 04/05/2019) Amphetamine OD (10/2019, [facility]) Amphetamine OD (01/2020, [facility]) PTSD (post-traumatic stress disorder) (Chronic 03/12/17) Abdominal adhesions (Chronic 07/29/16) Explor lap 2018 Ulcerative esophagitis (Acute) 07/05/[address] [facility] Abnormal abdominal ultrasound (Acute) Encounter for removal of sutures (Acute) Chronic diarrhea (Acute) Medical History Acute appendicitis (~05/2015) ADHD Combined Type 12/29/18 Dr Caceres Avoid stimulants/amphetamines s/p several ODs with RX & non-RX meds Bursitis of right shoulder Cubital tunnel syndrome on right Depression (03/12/17) Elevated blood pressure reading (07/29/16) Esophagitis with gastritis 02/2018 colonoscopy & upper EGD: severe reflux esophagitis with ulceration, gastritis, peptic duodenitis; neg H. Pylori, neg gluten sensitivity Abd pain better s/p course of H2 blockers [facility] [place] consult 06/2018 Family history of diabetes mellitus (07/29/16) Impaired fasting glucose 110, 07/2020 labs; 5.8% 04/2021 Inflammatory bowel diseases (IBD) (~02/2018) Not identified on 03/03/18 colonoscopy & upper EGD, so ruled-out Intentional amphetamine overdose 04/05/2019 Intentional self-harm by blunt object, initial encounter (01/13/18) Cutting (arms/legs) Intussusception intestine (~02/2018) Question of, not confirmed Laceration of forearm SARS-CoV-2 positive (~06/2021) 06/2021 SLAP lesion of right shoulder Tendonitis of long head of biceps brachii of right shoulder Surgical History Appendectomy (06/15/15) Dr Holguin Colonoscopy - MAC (03/03/18) EGD - MAC (03/03/18) History of appendectomy History of colonoscopy History of esophagogastroduodenoscopy (EGD) History of hernia repair History of laparotomy Laparotomy (12/05/17) Resolved intussuscepption, possible inflammatory bowel disease Family History Mother Mental disorder Manic depression and bipolar Father Essential hypertension Ulcerative colitis Other Asthma Social History Smoking/Tobacco Use Status: Current every day Tobacco Type: cigarettes Tobacco: How many years used: 13 Quit status: not considering quitting Counseling given: patient declined Smoking risk assessment performed?: Yes Alcohol Intake: current Alcohol Intake frequency: holidays/special occasions only Alcohol type: beer Drug use: Never Substance use type: former substance user Household members: spouse and children Housing: apartment Number of Children: 3 current occupation: cares for with [employer] Pets and animals: Yes (Dog) Sexually active: Yes Current gender identity: male Do you feel safe at home: Yes Do you feel safe in your relationship?: Yes Exam Narrative Exam Narrative: GEN: awake, alert, oriented 3. Pleasant, well groomed, interactive. HEAD: Normocephalic, atraumatic ENT: Mucous membranes moist, oropharynx unremarkable, External ear exam unre markable EYES: PERRL, EOMI NECK: Full ROM, no CELESTE, no menigismus CHEST/RESP: Nontender, clear to auscultation bilateral, no wheeze/rhonchi/rales CARDIOVASCULAR: RRR, no murmur, rub wilver. 2+ Rad pulse bilateral ABDOMEN: Soft, tender left inguinal region to palpation. There is a healed surgical incision in the left inguinal crease without surrounding erythema or fluctuance. +Bowel sounds EXT: Full ROM, no edema, no rash Neuro: Grossly normal neurologic exam, conversant, interactive. Psych: Speech fluent, thoughts congruent, affect normal Course Vital Signs Vital signs: Vital Signs Temperature 36.5 C 12/06/21 12:17 Pulse 106 H 12/06/21 12:17 Respiratory Rate 18 12/06/21 12:17 Blood Pressure 158/99 H 12/06/21 12:17 Pulse Oximetry 98 12/06/21 12:17 Temperature 36.5 C 12/06/21 12:17 Temperature Source Temporal Artery Scan 12/06/21 12:17 Pulse 106 H 12/06/21 12:17 Respiratory Rate 18 12/06/21 12:17 Respiratory Effort Non-Labored 12/06/21 12:20 Blood Pressure 158/99 H 12/06/21 12:17 Blood Pressure Position Sitting 12/06/21 12:17 Pulse Oximetry 98 12/06/21 12:17 Oxygen Delivery Method Room Air 12/06/21 12:17 Oxygen Flow Rate 0 12/06/21 12:17 Pain Level 10 12/06/21 12:17 PAWSS Have you Been Recently Intoxicated or Drunk Within the Last 30 days?: Yes Have you Ever Experienced Previous Episodes of Alcohol Withdrawal?: No Have you ever Experienced Withdrawal Seizures?: No Have you ever Experienced Delirium Tremens(DT)s?: No Have you ever undergone Alcohol Rehabilitation Treatment (i.e, inpt ot outpatient treatment programs)?: No Have you ever Experienced Blackouts?: No Have you ever Combined Alcohol with other Downers within the last 90 days?: No Have you ever Combined Alcohol with any other Substance of Abuse during the last 90 days?: No Positive Blood Alcohol level on Presentation? [PCS.BAL]: No Evidence of Increased Autonomic Activity (i.e. HR>120, tremor, sweating, agitat ion, nausea)?: No Result: 1
[2021-12-06 12:52] LABS: Abs Immature Grans 0.04 10^3/uL (0.0-0.06); Absolute Lymphocyte Count 2.03 10^3/uL (1.2-3.4); Absolute Monocyte Count 0.63 10^3/uL (0.1-0.8); Basophils % 0.5; Eosinophils % 4.9; HCT 51.8 % (40.0-50.0); HGB 17.6 g/dL (13.5-17.5); Immature Grans % 0.4; Lactate 1.5 mmol/L (0.6-1.4); Lymphocytes % 18.6; MCH 29.6 pg (27.0-33.0); MCV 87.1 fL (80-95); MPV 10.1 fL (8.0-11.0); Monocytes % 5.8; Neutrophils % 69.8; Nucleated RBC 0 %; Platelet Count 351 10^3/uL (130-400); RBC 5.95 10^6/uL (4.36-5.78); RDW 12.7 % (11.8-14.1); RDW-SD 40.6 fL; WBC 10.92 10^3/uL (4.4-10.8)
[2021-12-06 12:54] LABS: Absolute Basophil Count 0.05 10^3/uL (0.0-0.2); Absolute Eosinophil Count 0.54 10^3/uL (0.0-0.7); Absolute Neutrophil Count 7.62 10^3/uL (1.2-6.7)
[2021-12-06] MEDS: Normal Saline 1,000 ML 125 ML IV (12:55)
[2021-12-06] MEDS: HYDROmorphone 2 MG/ML VIAL 1 MG IVP (12:55)
[2021-12-06] MEDS: Normal Saline 1,000 ML 1000 ML IV (12:58)
[2021-12-06 13:05] LABS: ALT 68 U/L (16-63); AST 28 U/L (15-37); Alkaline Phosphatase 88 U/L (46-116); Anion Gap 8.3 mmol/L (3-11); BUN 16 mg/dL (7-18); Bilirubin, Total 0.5 mg/dL (0.2-1.0); CO2 27.7 mmol/L (21.0-32.0); CREATININE 1.3 mg/dL (0.70-1.30); Chloride 103 mmol/L (98-107); Glucose 119 mg/dL (74-106); Magnesium 2.3 mg/dL (1.8-2.4); Potassium 3.4 mmol/L (3.5-5.1); Sodium 139 mmol/L (136-145); Total Protein 8.4 g/dL (6.4-8.2)
[2021-12-06] MEDS: Omnipaque 350 MG/ML 100 ML BTL IJ (13:33)
[2021-12-06 14:27] LABS: Bilirubin Negative (Negative); Blood Negative (Negative); Clarity Clear (Clear); Glucose Negative (Negative); Ketones Negative (Negative); Leukocyte Esterase Negative (Negative); Nitrite Negative (Negative); Specific Gravity 1.015 (1.005-1.025); Urobilinogen 0.2 EU/dL (Up TO 0.2)
[2021-12-06] MEDS: Ketorolac 10 MG TAB PO (14:59)
== END 2021-12-06 15:10 | disposition home or self-care (01) ==
PROVIDERS: Emergency Provider Emergency Medicine; PCP Nurse Practitioner Adult Health
DX: L76.32 Postprocedural hematoma of skin and subcutaneous tissue following other procedure (principal)
CPT/HCPCS: 36415; 80053; 96361; 96374; 99285; 74177; 81003; 83605; 83735; 85025; 99284; J3490

== ENCOUNTER 2022-01-21 02:00 | Outpatient (CLI) | payer MEDICAID, SELFPAY ==
[2022-01-21 12:15] LABS: Source Nasal/Nares
[2022-01-21 16:40] LABS: COVID-19 PCR Negative (Negative)
== END 2022-01-21 02:01 | disposition home or self-care (01) ==
LOC: LBO 02:01
PROVIDERS: PCP Nurse Practitioner Adult Health; Visit Provider Surgery
DX: Z20.822 Contact with and (suspected) exposure to COVID-19 (principal); Z01.818 Encounter for other preprocedural examination
CPT/HCPCS: 87635

== ENCOUNTER 2022-01-23 06:49 | Day surgery (SDC) | payer MEDICAID, SELFPAY ==
[2022-01-23] VITALS (7 sets, daily range): BP systolic 101–134; BP diastolic 80–96; PULSE 94–119; RESP 16–22; TEMP 36.2–36.7; O2SAT 96–98; BMI 32.8
--- NOTE | 2022-01-23 06:46 | W.PREOPHP ---
Assessment and Plan Assessment and plan (1) Tubular adenoma of colon: Status: Chronic Assessment and plan: Malcolm is back to see me today as he wishes to have another colonoscopy and upper endoscopy. He had a colonoscopy back in 2018 for chronic diarrhea. Biopsies were negative for ulcerative colitis, Crohn's, microscopic colitis. He did see gastroenterology who recommended the FODMAP diet as well as stool studies. He did not do the stool cultures and did not really follow the FODMAP diet either. He has decreased bread intake and spicy food intake and that seems to help somewhat. He is concerned because he is having increased diarrhea at this point. I did explain to him that he more than likely had his IBS and at his diarrhea is going to fluctuate depending on stress level and the foods that he is eating. Because he did have a tubular adenoma back in 2018 it is reasonable to do another colonoscopy to make sure that he does not have any other polyps. He would like to have another upper endoscopy to again try to rule out celiac disease. He is having some heartburn although it seems to be better than in 2018.? Off note his last [place]/EGD procedure was aborted because of respiratory issues at the time of EGD. He will need a General anesthetic with ET tube to protect his airway. ? I discussed the risks, benefits and complications of a colonoscopy and upper endoscopy. I reviewed with him the fact that this may end up being a diagnostic colonoscopy which means it would go against his deductible. He understands and wishes to proceed. ? Risks, benefits and complications have been reviewed. Complications include but are not limited to bleeding, pain, perforation, missed small lesion/polyp, sore throat, aspiration and adverse reaction to the medications. Questions were entertained and answered to their satisfaction and they wished to proceed. No guarantees were given or implied. ? Proceed with colonoscopy and upper endoscopy under general anesthesia with ET tube (2) Ulcerative esophagitis: Status: Acute (3) Chronic diarrhea: Status: Acute History of Present Illness Narrative: Enio is back to see me today to re-schedule his EGD and Colonoscopy.? His last colonoscopy was 3 years ago and he had a tubular adenoma.? At that time he was having diarrhea.? He tells me that he has had change in bowel habits and has been having loose stools.? I think this is the same problem he had in 2018.? He also tells me that he feels blocked and has to push to have a bowel movement at times.? His colonoscopy 3 years ago did not show any microscopic colitis or any other type of inflamed Tory process in his bowel.? He is quite anxious as he is sitting there telling me about this.? He cannot stop fidgeting.? I wonder if his loose stools have more to do with his anxiety then anything else.? He does seem very worried about his stools.? He denies any melena or hematochezia.? He denies any weight loss.? I did send him to gastroenterology down at [facility] and they recommended a FODMAP diet.? The patient did not follow this.? They also recommended stool cultures which he never did. We attempted an EGD/[place] and unfortunately he went into respiratory distress and we had to abort.? He will be scheduled as a General with ET tube this time to protect his airway. Review of Systems All systems reviewed & are unremarkable except as noted in HPI and below PFSH All Active Problems Follow up (Acute) Upper respiratory disease (Acute) Tubular adenoma of colon (Chronic 03/03/18) Rectal polyp pathology 03/03/2018 Repeat colonoscopy 2022 Tobacco use disorder (Chronic 07/29/16) Cigs 1PPD Substance use disorder (Chronic 12/22/17) Tramadol ([facility] 2017) Vyvanse ([facility] [place] 2015) Amphetamine OD ([facility] 04/05/2019) Amphetamine OD (10/2019, [facility]) Amphetamine OD (01/2020, [facility]) PTSD (post-traumatic stress disorder) (Chronic 03/12/17) Abdominal adhesions (Chronic 07/29/16) Explor lap 2018 Ulcerative esophagitis (Acute) 07/05/19 GI at [facility] Abnormal abdominal ultrasound (Acute) Encounter for removal of sutures (Acute) Chronic diarrhea (Acute) Medical History Acute appendicitis (~05/2015) ADHD Combined Type 12/29/18 Dr Mujica Avoid stimulants/amphetamines s/p several ODs with RX & non-RX meds Bursitis of right shoulder Cubital tunnel syndrome on right Depression (03/12/17) Elevated blood pressure reading (07/29/16) Esophagitis with gastritis 02/2018 colonoscopy & upper EGD: severe reflux esophagitis with ulceration, gastritis, peptic duodenitis; neg H. Pylori, neg gluten sensitivity Abd pain better s/p course of H2 blockers [facility] GI consult 06/2018 Family history of diabetes mellitus (07/29/16) Impaired fasting glucose 110, 07/2020 labs; 5.8% 04/2021 Inflammatory bowel diseases (IBD) (~02/2018) Not identified on 03/03/18 colonoscopy & upper EGD, so ruled-out Intentional amphetamine overdose 04/05/2019 Intentional self-harm by blunt object, initial encounter (01/13/18) Cutting (arms/legs) Intussusception intestine (~02/2018) Question of, not confirmed Laceration of forearm SARS-CoV-2 positive (~06/2021) 06/2021 SLAP lesion of right shoulder Tendonitis of long head of biceps brachii of right shoulder Surgical History Appendectomy (06/15/15) Dr Holguin Colonoscopy - MAC (03/03/18) EGD - MAC (03/03/18) History of appendectomy History of colonoscopy History of esophagogastroduodenoscopy (EGD) History of hernia repair History of laparotomy Laparotomy (12/05/17) Resolved intussuscepption, possible inflammatory bowel disease Family History Mother Mental disorder Manic depression and bipolar Father Essential hypertension Ulcerative colitis Other Asthma Social History Smoking/Tobacco Use Status: Current every day Tobacco Type: cigarettes Tobacco: How many years used: 13 Quit status: not considering quitting Counseling given: patient declined Smoking risk assessment performed?: Yes Alcohol Intake: current Alcohol Intake frequency: a few times a month Alcohol type: beer Drug use: Never Substance use type: former substance user Household members: spouse and children Housing: apartment Number of Children: 3 current occupation: cares for with [employer] Pets and animals: Yes (Dog) Sexually active: Yes Current gender identity: male Do you feel safe at home: Yes Do you feel safe in your relationship?: Yes Additional Social history: answering question for patient Meds Allergies and Home Medications Allergies Allergy/AdvReac Type Severity Reaction Status Date / Time lisdexamfetamine dimesylate AdvReac Severe Auditory Verified 01/23/22 07:04 [From Sylvia] Hallucination sertraline AdvReac Severe anger Verified 01/23/22 07:04 Home Medications Medication Instructions Recorded Confirmed Type gabapentin 800 mg tablet 800 mg PO TID #90 tab 02/01/19 01/23/22 Rx docusate sodium 100 mg capsule 200 mg PO DAILY cap 12/14/21 01/22/22 History (Colace) polyethylene glycol 3350 17 17 g PO ONCE #238 g 12/14/21 01/22/22 Rx gram/dose oral powder bisacodyl 5 mg tablet,delayed 5 mg PO ONCE #4 tab 01/22/22 01/22/22 Rx release (Dulcolax (bisacodyl)) Exam Const General: cooperative, comfortable, no acute distress and anxious HENHI Head: normocephalic and atraumatic Resp Effort & Inspection: normal respiratory effort Auscultation: clear to auscultation bilaterally Cardio Rate: regular rate Rhythm: regular rhythm
--- NOTE | 2022-01-23 06:49 | PDOC.DSDIS_ITS ---
Discharge Plan Disposition Patient Disposition: HOME Condition: Good Discharge Details Reason For Visit: [place]/EGD Attending Provider: Rosy Wheeler Primary Care Provider: Polina Darby Home Meds and New Rx's Prescriptions: New omeprazole 40 mg capsule,delayed release(DR/EC) 40 mg PO BID Qty: 60 3RF Continued docusate sodium [Colace] 100 mg capsule 200 mg PO DAILY 0RF gabapentin 800 mg tablet 800 mg PO TID Qty: 90 11RF Rx Instructions: DR. CACERES TAKING OVER RX 01/2019 Discontinued polyethylene glycol 3350 17 gram/dose powder 17 g PO ONCE Qty: 238 0RF Rx Instructions: To be taken as directed by prescriber's office for colonoscopy prep. bisacodyl [Dulcolax (bisacodyl)] 5 mg tablet,delayed release (DR/EC) 5 mg PO ONCE Qty: 4 0RF Rx Instructions: Take according to provider's instructions for colonoscopy prep. Discharge Instructions Instructions: Diet for Stomach Ulcers and Gastritis (ED), Esophagitis (DC) Additional Instructions: Findings: Severe inflammation of the esophagus moderate inflammation of the esophagus Normal colonoscopy Follow up: depends on final pathology results. I will call you Please call if you develop: fevers >101.5 Nausea or Vomiting Abdominal pain that is not transient Rectal bleeding that is more then a tbsp A hard abdomen and inability to pass gas DAY SURGERY UNIT POST ENDOSCOPY INSTRUCTIONS Instructions for everyone who is given Anesthesia: For your safety, please do the following for the next 24 Hours: a. Do not drive or operate dangerous equipment b. Do not drink alcohol beverages or use any recreational drugs for the first 24 hours or while taking pain medications. The medications in your body may have a reaction that can be dangerous. c. Do not make any important decisions or sign any important papers 1. Generally there are no restrictions on your activity after a day or so has gone by, but you may feel a bit fatigued for a few days. 2. After you arrive home you may have a light meal and return to a normal diet as you can tolerate it without feeling sick to your stomach. 3. After surgery, you may feel pain or discomfort. This should be only transient, but if it persists please contact your doctor. 4. If there are any questions regarding the findings of your procedure, please feel free to contact your doctor. 6. If you are unable to contact your doctor with a problem, contact the hospital at [phone]. 7. Continue all your regular medications unless directed otherwise. I understand the above instructions and have no questions. Signature of Patient or Responsible Adult Escort Date/Time Name of Responsible Adult Escort Signature of Nurse Date/Time Activity:: Activity as Tolerated Diet:: low acid Discharge Orders Discharge Orders: Discharge Order (Routine); Ordered 01/23/22 Ordered By: Rosy Wheeler DS: Diagnosis Discharge Diagnosis (1) Tubular adenoma of colon: Status: Chronic (2) Ulcerative esophagitis: Status: Acute (3) Chronic diarrhea: Status: Acute
--- NOTE | 2022-01-23 06:50 | W.PM.ENDDOP ---
Date of service: 01/23/22 Time of Service: 08:33 Endoscopy Report DATE OF PROCEDURE: 01/23/22 PRE-OP DIAGNOSIS: Chronic diarrhea/ GERD/ Hx of polyps POST-OP DIAGNOSIS: other (Severe esophatgitis, gastritis ) PROCEDURE: 1. EGD with biopsies 2. Colonoscopy SURGEON: Rosy Wheelre ANESTHESIA TYPE: General LMA/ETT ESTIMATED BLOOD LOSS: 3 PATHOLOGY: other (bx of duodenum, antrum, body and esophagus at 35, 32,30, 28 and 20 cm) COMPLICATIONS: None DISPOSITION: PACU INDICATIONS: Malcolm is back to see me today as he wishes to have another colonoscopy and upper endoscopy. He had a colonoscopy back in 2018 for chronic diarrhea. Biopsies were negative for ulcerative colitis, Crohn's, microscopic colitis. He did see gastroenterology who recommended the FODMAP diet as well as stool studies. He did not do the stool cultures and did not really follow the FODMAP diet either. He has decreased bread intake and spicy food intake and that seems to help somewhat. He is concerned because he is having increased diarrhea at this point. I did explain to him that he more than likely had his IBS and at his diarrhea is going to fluctuate depending on stress level and the foods that he is eating. Because he did have a tubular adenoma back in 2018 it is reasonable to do another colonoscopy to make sure that he does not have any other polyps. He would like to have another upper endoscopy to again try to rule out celiac disease. He is having some heartburn although it seems to be better than in 2018.? Off note his last [place]/EGD procedure was aborted because of respiratory issues at the time of EGD. He will need a General anesthetic with ET tube to protect his airway. ? I discussed the risks, benefits and complications of a colonoscopy and upper endoscopy. I reviewed with him the fact that this may end up being a diagnostic colonoscopy which means it would go against his deductible. He understands and wishes to proceed. ? Risks, benefits and complications have been reviewed. Complications include but are not limited to bleeding, pain, perforation, missed small lesion/polyp, sore throat, aspiration and adverse reaction to the medications. Questions were entertained and answered to their satisfaction and they wished to proceed. No guarantees were given or implied. ? Proceed with colonoscopy and upper endoscopy under general with ET tube PREP: Miralax/Dulcolax PROCEDURE START TIME: 07:33 PROCEDURE END TIME: 08:18 COLONOSCOPY RETRACTION TIME: 10 minutes FINDINGS: Severe inflammation of the esophagus with ulcers Moderate gastritis Normal Colonoscopy PROCEDURE DESCRIPTION: After informed consent was obtained the patient was take to the operating room and placed in a supine position. Monitors were applied and a time out was done. The patients name, date of , procedure type, allergies to medications and metal in their body was reviewed. The patient was intubated. A bite block was placed. Once sedated and comfortable the gastroscope was advanced through the oropharynx which was grossly normal into the esophagus. The proximal and mid-esophagus were showed severe inflammation. In the distal esophagus there was severe inflammation noted. The scope was advanced into the stomach and through the pylorus into the 3rd portion of the duodenum. The duodenum was noted to be normal. Biopsies were done. The scope was retracted back into the stomach. There was moderate inflammation noted in the antrum and body. Biopsies were done to rule out H. pylori. There were no ulcers. The scope was retro-flexed. The cardia and fundus were noted to be normal. There was a small hiatal hernia noted. The scope was retracted back into the esophagus and biopsies were done of the GE junction to rule out Layton's. The Z line was irregular with reparative changes and scarring. The GE junction was at 35 cm. Biopsies were done in the esophagus at 32, 30,28 and 20 cm. There was scarring at 20 cm. While the patient was still sedated they were placed in a left decubitous position. A rectal exam was done. External exam was normal. Internal exam revealed a normal sphincter tone and no palpable masses. The prostate felt normal. The scope was then introduced and retro-flexed. No internal hemorrhoids, masses or polyps were identified on retroflexion. The scope was then advanced to the cecum without difficulty. The ileocecal valve and appendiceal orifice were identified. The prep was good. The scope was then slowly retracted over [] minutes back into the rectum. There were no Polyps. There was no diverticulosis. The scope was removed and the patient was woken up and taken back to Same day surgery in stable condition. The patient tolerated the procedure well and there were no immediate complications.
[2022-01-23] MEDS: Lactated Ringers 1,000 ML 80 ML IV (07:08)
--- NOTE | 2022-01-23 07:08 | W.ANESPRE ---
General Info Date of Service Date Performed: 01/23/22 Height: 5 ft 10 in Weight: 104 kg Body Mass Index (BMI): 32.8 Surgical Procedure: Operation Date: 01/23/22 07:35 Proposed Procedure Side Surgeon p Colonoscopy/Gastroscopy Rosy Wheeler MD Meds Allergies and Home Medications Allergies Allergy/AdvReac Type Severity Reaction Status Date / Time lisdexamfetamine dimesylate AdvReac Severe Auditory Verified 01/23/22 07:04 [From Sylvia] Hallucination sertraline AdvReac Severe anger Verified 01/23/22 07:04 Home Medication Medication Instructions Recorded gabapentin 800 mg tablet 800 mg PO TID #90 tab 02/01/19 docusate sodium 100 mg capsule 200 mg PO DAILY cap 12/14/21 (Colace) polyethylene glycol 3350 17 17 g PO ONCE #238 g 12/14/21 gram/dose oral powder bisacodyl 5 mg tablet,delayed 5 mg PO ONCE #4 tab 01/22/22 release (Dulcolax (bisacodyl)) Current Visit Medications: Current Medications Generic Name Dose Route Start Last Admin Trade Name Freq PRN Reason Stop Dose Admin Hyoscyamine Sulfate 0.125 mg 01/23/22 06:54 Hyoscyamine 0.125 Mg Sl/Oral/Chew SL DIRECTED PRN Ringer's Solution 1,000 mls @ 80 mls/hr 01/23/22 06:00 IV 02/21/22 23:59 [facility] IV Miscellaneous Supplies 1 each 01/23/22 06:00 Iv Access IV 02/21/22 23:59 DIRECTED [facility] Ondansetron HCl 4 mg 01/23/22 06:54 Ondansetron 4 Mg/2 Ml Vial IVP Q4H PRN PRN Nausea / Vomiting Sodium Chloride 0 ml 01/23/22 06:00 Normal Saline Flush 10 Ml Syr IV 02/21/22 23:59 PRN PRN Sodium Chloride 0 ml 01/23/22 06:00 Normal Saline 10 Ml Vial IJ 02/21/22 23:59 DIRECTED PRN Sterile Water 0 ml 01/23/22 06:00 Water,Injection,Sterile 10 Ml Vial IJ 02/21/22 23:59 DIRECTED PRN PFSH Active Problems Active Problems: Problem Status Onset Code Follow up Z09 Upper respiratory disease J39.9 Tubular adenoma of colon 03/03/18 D12.6 Tobacco use disorder 07/29/16 F17.200 Substance use disorder 12/22/17 F19.90 PTSD (post-traumatic stress disorder) 03/12/17 F43.10 Abdominal adhesions 07/29/16 Ulcerative esophagitis K22.10 Abnormal abdominal ultrasound R93.5 Encounter for removal of sutures Z48.02 Chronic diarrhea K52.9 Medical History Medical History Acute appendicitis (~05/2015) ADHD Combined Type 12/29/18 Dr Mujica Avoid stimulants/amphetamines s/p several ODs with RX & non-RX meds Bursitis of right shoulder Cubital tunnel syndrome on right Depression (03/12/17) Elevated blood pressure reading (07/29/16) Esophagitis with gastritis 02/2018 colonoscopy & upper EGD: severe reflux esophagitis with ulceration, gastritis, peptic duodenitis; neg H. Pylori, neg gluten sensitivity Abd pain better s/p course of H2 blockers [facility] [place] 06/2018 Family history of diabetes mellitus (07/29/16) Impaired fasting glucose 110, 07/2020 labs; 5.8% 04/2021 Inflammatory bowel diseases (IBD) (~02/2018) Not identified on 03/03/18 colonoscopy & upper EGD, so ruled-out Intentional amphetamine overdose 04/05/2019 Intentional self-harm by blunt object, initial encounter (01/13/18) Cutting (arms/legs) Intussusception intestine (~02/2018) Question of, not confirmed Laceration of forearm SARS-CoV-2 positive (~06/2021) 06/2021 SLAP lesion of right shoulder Tendonitis of long head of biceps brachii of right shoulder Medical History Comments:: Updated 01/22/22: Pt. stated he was here for EGD and colo. on 11/13/21 and then began to produce a lot of mucus, and stated his oxygen levels dropped into the 70's. Pt. states he currently has PND that he has had for months, has been fully worked up.--01/22/22-per pt. no longer has PND Per DK post note from that procedure: Discussed plan of endotracheal tube for the next anesthetic for more control of the airway. (hx. laryngospasm, and reactive airway). Surgical History Surgical History Appendectomy (06/15/15) Dr Holguin Colonoscopy - MAC (03/03/18) EGD - MAC (03/03/18) History of appendectomy History of colonoscopy History of esophagogastroduodenoscopy (EGD) History of hernia repair History of laparotomy Laparotomy (12/05/17) Resolved intussuscepption, possible inflammatory bowel disease Tobacco Smoking/Tobacco Use Status: Current every day Tobacco Type: cigarettes Counseling given: patient declined Alcohol Alcohol Intake: current Alcohol intake frequency: a few times a month Alcohol type: beer Substance Use Substance use: Never Substance use type: former substance user Vital Signs and Lab Results Vital Signs Most Recent Vital Signs in EMR: Most Recent Vital Signs Temp Pulse Resp BP Pulse Ox 36.3 C L 107 H 18 129/96 H 98 01/23/22 06:54 01/23/22 06:54 01/23/22 06:54 01/23/22 06:54 01/23/22 06:54 Lab Results Blood Type / Crossmatch: No Data to Display Complete Blood Count: No Data to Display Complete Metabolic Panel: No Data to Display Liver Function Panel: No Data to Display Coagulation Panel: No Data to Display Cardiac Panel: No Data to Display Arterial Blood Gas: No Data to Display Venous Blood Gas: No Data to Display Pancreas Panel: No Data to Display Thyroid Panel: No Data to Display Infectious Disease: Coronavirus (COVID-19)(PCR) Negative (Negative) 01/21/22 08:40 01/21/22 Coronavirus 2019 Source Nasal/Nares 01/21/22 08:40 01/21/22 Blood Cultures: No Data to Display Toxicology Panel: No Data to Display Anesthesia Assessment and Plan Anesthesia History Personal History: Other Family History: No Family History of Anesthesia Complications Exercise Tolerance Exercise Tolerance: Metabolic Equivalents>4 Pertinent Negatives Pertinent Negatives: No Major Cardiovascular Symptoms or Complaints, No Major Pulmonary Symptoms or Complaints and No History of CVA/TIA Cardiac & Pulmonary Exam Cardiac Exam: Normal S1/S2 Heart Sounds Pulmonary Exam: Clear Bilateral Breath Sounds Implantable Cardiac Device Does patient have a Pacemaker or an ICD?: No Airway Exam Known Difficult Airway: Yes Mallampati Class: 1 Mouth Opening: Normal (> 3cm) Thyromental Distance: Greater than 3 cm Neck Range of Motion: Full ROM Neck Circumference: Normal Teeth Condition: Normal Dentition (Patient remarks one previously broken tooth) and Generalized Poor Dentition ASA Classification ASA Score: ASA 2 Emergency Case?: No NPO Status NPO Status: NPO Clears >2 hours, Solids >8 hours Anesthesia Plan Resuscitation Status: Full Code Anesthesia Technique: General Anesthesia Airway Planned: Endotracheal Tube Monitors Used: Standard Monitors
--- NOTE | 2022-01-23 07:45 | BOWEL_PTH ---
PATIENT: Enio Escamilla LOC: [facility] U#:[id number] AGE/SX: 36/M ROOM: RE01/23/[address]: Rosy Wheeler MD : [id number] BED: DIS: 01/23/2022 SPEC #: [id number] RECD: 01/23/22 11:29 STATUS: RICK RE #: [id number] KARENA: 01/23/22 07:[address]: Rosy Wheeler DEPT: Surgical Specimen RECD BY: Ranjana Allison ENTERED: 01/23/22 11:43 SP TYPE: Bowel OTHR DR: Polina Darby APRN Tissues: 1 - BIOPSY BOWEL 2 - STOMACH BIOPSY 3 - STOMACH BIOPSY 4 - ESOPHAGUS BIOPSY 5 - ESOPHAGUS BIOPSY 6 - ESOPHAGUS BIOPSY 7 - ESOPHAGUS BIOPSY 8 - ESOPHAGUS BIOPSY Procedures: GROSS AND MICRO LEVEL 4 SPECIAL STAIN 1 Comments: [id number]
--- NOTE | 2022-01-23 09:22 | W.ANESPOSTOP ---
Postoperative Evaluation Date, Time and Location Date Performed: 01/23/22 Time Performed: Patient Location: Day Surgery Unit Vital Signs Most Recent Imported Vital Signs: Most Recent Vital Signs Temp Pulse Resp BP Pulse Ox 36.2 C L 101 H 16 120/86 96 01/23/22 09:02 01/23/22 09:02 01/23/22 09:02 01/23/22 09:02 01/23/22 09:02 Pain Score Most Recent Pain Score: Most Recent Pain Score Pain Level 0 01/23/22 09:02 Assessment Mental Status: Awake (Alert & Oriented to Patient Baseline) Airway and Respiratory Function: Patent airway with normal (patient baseline) respiratory exam Cardiovascular Function: Hemodynamically Stable Hydration Status: Adequately Hydrated Nausea & Vomiting: No Nausea or Vomiting Pain: Pain is tolerable per patient Peripheral Nerve Block: Patient did not receive a nerve block
== END 2022-01-23 09:47 | disposition home or self-care (01) ==
PROVIDERS: PCP Nurse Practitioner Adult Health; Visit Provider Surgery
PROC: (CPT 43239; principal; 2022-01-23 07:30)
DX: K52.9 Noninfective gastroenteritis and colitis, unspecified (principal); Z86.010 Personal history of colon polyps; K20.90 Esophagitis, unspecified without bleeding; K44.9 Diaphragmatic hernia without obstruction or gangrene; K31.9 Disease of stomach and duodenum, unspecified; K22.89 Other specified disease of esophagus
CPT/HCPCS: 43239; 45378; 88305; 88312; J1100; J2250; J2405

== ENCOUNTER 2022-04-06 18:29 | Emergency (ER) | payer MEDICAID, SELFPAY ==
--- NOTE | 2022-04-06 18:30 | DI.RAD_ITS ---
Exam(s) XR ELBOW RT COMPLETE EXAM: XR ELBOW RT COMPLETE CLINICAL HISTORY: trauma-Proximal medial pain. TECHNIQUE: 2D digital imaging was performed. COMPARISON: No exams were available for comparison FINDINGS: 3 views No evidence of fracture nor joint dorsal fusion. No swelling of the olecranon bursa. Radial head un remarkable. Capitellum unremarkable. Epicondyles unremarkable. Bone density normal. IMPRESSION: No fractures or joint effusion. No radiopaque foreign body DATA REPOSITORY: RADIATION DOSE DELIVERED:
[2022-04-06 18:32] VITALS: BP 132/84; PULSE 104; RESP 16; TEMP 37; O2SAT 98
[2022-04-06] MEDS: Ketorolac 30 MG/ML VIAL IM (19:26)
--- NOTE | 2022-04-06 19:34 | DI.VRAD_ITS ---
PROCEDURE INFORMATION: Exam: XR Right Elbow Exam date and time: 04/06/2022 19:14 Age: 36 years old Clinical indication: Injury or trauma; Other: Wrestling; Blunt trauma (contusions or hematomas); Elbow; Right TECHNIQUE: Imaging protocol: Radiologic exam of the Right elbow. Views: 3 or more views. COMPARISON: CR XR SHOULDER RT COMPLETE 2+V 10/27/2019 10:25 FINDINGS: Bones/joints: No acute fracture or subluxation. Soft tissues: No significant joint effusion. IMPRESSION: No acute bony pathology. Dictated and Authenticated by: Bree Bird MD. Ordering:IJEOMA Goins MD
--- NOTE | 2022-04-06 19:48 | ED.GENADUL_ITS ---
Discharge Plan Disposition Patient Disposition: HOME Condition: Stable Discharge Details Clinical Impression: Strain of right elbow and forearm Primary Care Provider: Polina Darby ED Provider: Buster Moyer Home Meds and New Rx's Prescriptions: No Action gabapentin 800 mg tablet 800 mg PO TID Qty: 90 11RF Rx Instructions: DR. MUJICA TAKING OVER RX 01/2019 omeprazole 40 mg capsule,delayed release(DR/EC) 40 mg PO BID Qty: 60 3RF aspirin 81 mg tablet,delayed release (DR/EC) 81 mg PO DAILY 14 Days Qty: 14 0RF naproxen 250 mg tablet 250 - 500 mg PO BID PRNQty: 40 0RF Rx Instructions: take with a meal oxycodone 5 mg tablet 5 - 10 mg PO Q4H MDD 30 mg PRN (Reason: moderate to severe pain) Qty: 18 0RF Discharge Instructions Instructions: Elbow Sprain (ED) Referrals: [facility] [Provider Group] (Please call the office on Friday morning for arrangement of follow-up appointment.) Discharge Data Discharge Date/Time-TO BE ENTERED AT DEPARTURE: 04/06/22 20:25 Medical Decision Making Patient presenting to the emergency department for chief complaint of right elbow injury. He states that he was playing with his child and while roughhousing felt an extreme popping and tearing sensation to his right elbow. Patient denies any other injury or trauma. Physical exam shows significant limited range of motion secondary to pain and discomfort but patient is able to slowly pronate and supinate with significant amount of pain flexion and extension is slightly better but still limited by discomfort. Patient is tender to the before meals and the medial proximal forearm. No obvious deformity or abnormality noted to the bicep or the forearm, no ecchymosis, shoulder and hand are intact with full neurological and motor function. We will plan on performing radiological imaging for evaluation of acute fracture versus high suspicion of ligamentous tear. Pending results we will give patient Toradol. Review of radiological imaging shows no signs of acute fracture we will place patient in sling and did discuss with patient daily range of motion activities with sling use. Due to patient's significant amount of pain and discomfort with patient complaining of tearing type sensation will place patient on orthopedic follow-up list for reassessment and further imaging as needed. After discussion of diagnosis and plan of care patient has no further needs, questions, or concerns and states clear understanding to return to the emergency department f or any worsening symptoms. This documentation was generated using [employer] dictation system, please disregard any oddities of phrase or misspellings. Imaging Data Radiologic Study: Attestation: I personally reviewed and interpreted this imaging study as follows: Radiologist's impression: FINDINGS: Bones/joints: No acute fracture or subluxation. Soft tissues: No significant joint effusion. IMPRESSION: No acute bony pathology. HPI General Mode of arrival: ambulatory . Date/Time Provider Initiated Documentation: 04/06/22 18:42 . Limitations to Documentation: no limitations . Information obtained by: patient and RN notes reviewed . History of Present Illness 36 year old M presents to the emergency department with the chief complaint of right elbow injury, described as moderate, with intensity rated at 8. Quality is described as aching and sharp, and is localized to the right and upper extremity. Patient reports no radiation. Patient started experiencing this hour(s) (1) and it has been constant. No relieving factors improve symptom(s), Movement worsens symptoms . Patient notes no other symptoms.. Patient did receive the following treatments prior to arrival, none Related Data Home Medications Medication Instructions Recorded Confirmed gabapentin 800 mg tablet 800 mg PO TID #90 tabs 02/01/19 04/12/22 omeprazole 40 mg capsule,delayed 40 mg PO BID #60 caps 01/23/22 04/12/22 release aspirin 81 mg tablet,delayed 81 mg PO DAILY Prevent blood clot 04/12/22 release 14 days #14 tabs naproxen 250 mg tablet 250 - 500 mg PO BID PRN #40 tabs 04/12/22 oxycodone 5 mg tablet 5 - 10 mg PO Q4H PRN moderate to 04/12/22 severe pain #18 tabs Previous Rx's Medication Instructions Recorded gabapentin 800 mg tablet 800 mg PO TID #90 tabs 02/01/19 omeprazole 40 mg capsule,delayed 40 mg PO BID #60 caps 01/23/22 release aspirin 81 mg tablet,delayed 81 mg PO DAILY Prevent blood clot 04/12/22 release 14 days #14 tabs naproxen 250 mg tablet 250 - 500 mg PO BID PRN #40 tabs 04/12/22 oxycodone 5 mg tablet 5 - 10 mg PO Q4H PRN moderate to 04/12/22 severe pain #18 tabs Allergies Allergy/AdvReac Type Severity Reaction Status Date / Time lisdexamfetamine dimesylate AdvReac Severe Auditory Verified 04/12/22 07:48 [From Vyvanse] Hallucination sertraline AdvReac Severe anger Verified 04/12/22 07:48 General Stated Complaint: Orthopedic SLY: 4 Review of Systems Narrative: 8 systems reviewed and unremarkable except what is marked below. Musculoskeletal Musculoskeletal: Reports as per HPI, Reports limited range of motion and Reports radiating pain into limb PFSH All Active Problems Traumatic rupture of right distal biceps tendon (Acute) Eosinophilic esophagitis (Acute) Follow up (Acute) Upper respiratory disease (Acute) Tubular adenoma of colon (Chronic 03/03/18) Rectal polyp pathology 03/03/2018 Repeat colonoscopy 2022 Tobacco use disorder (Chronic 07/29/16) Cigs 1PPD Substance use disorder (Chronic 12/22/17) Tramadol ([facility] 2017) Vyvanse ([facility] 2015) Amphetamine OD ([facility] 04/05/2019) Amphetamine OD (10/2019, [facility]) Amphetamine OD (01/2020, [facility]) PTSD (post-traumatic stress disorder) (Chronic 03/12/17) Abdominal adhesions (Chronic 07/29/16) Explor lap 2018 Ulcerative esophagitis (Acute) 07/05/[address] [facility] Abnormal abdominal ultrasound (Acute) Encounter for removal of sutures (Acute) Chronic diarrhea (Acute) Medical History Acute appendicitis (~05/2015) ADHD Combined Type 12/29/18 Dr Mujica Avoid stimulants/amphetamines s/p several ODs with RX & non-RX meds Bursitis of right shoulder Cubital tunnel syndrome on right Depression (03/12/17) Elevated blood pressure reading (07/29/16) Esophagitis with gastritis 02/2018 colonoscopy & upper EGD: severe reflux esophagitis with ulceration, gastritis, peptic duodenitis; neg H. Pylori, neg gluten sensitivity Abd pain better s/p course of H2 blockers [facility] GI consult 06/2018 Family history of diabetes mellitus (07/29/16) Impaired fasting glucose 110, 07/2020 labs; 5.8% 04/2021 Inflammatory bowel diseases (IBD) (~02/2018) Not identified on 03/03/18 colonoscopy & upper EGD, so ruled-out Intentional amphetamine overdose 04/05/2019 Intentional self-harm by blunt object, initial encounter (01/13/18) Cutting (arms/legs) Intussusception intestine (~02/2018) Question of, not confirmed Laceration of forearm SARS-CoV-2 positive (~06/2021) 06/2021 SLAP lesion of right shoulder Tendonitis of long head of biceps brachii of right shoulder Surgical History Appendectomy (06/15/15) Dr Holguin Colonoscopy - MAC (03/03/18) 01/2022 EGD - MAC (03/03/18) History of appendectomy History of colonoscopy History of esophagogastroduodenoscopy (EGD) History of hernia repair History of laparotomy Laparotomy (12/05/17) Resolved intussuscepption, possible inflammatory bowel disease Family History Mother Mental disorder Manic depression and bipolar Father Essential hypertension Ulcerative colitis Other Asthma Social History Smoking/Tobacco Use Status: Current every day Tobacco Type: cigarettes Tobacco: How many years used: 13 Quit status: not considering quitting Counseling given: patient declined Smoking risk assessment performed?: Yes Alcohol Intake: current Alcohol Intake frequency: a few times a week Alcohol type: beer and hard liquor Drug use: Never Substance use type: former substance user Household members: spouse and children Housing: apartment Number of Children: 3 current occupation: cares for with [employer] Pets and animals: Yes (Dog) Sexually active: Yes Current gender identity: male Do you feel safe at home: Yes Do you feel safe in your relationship?: Yes Exam Const General: cooperative, no acute distress and not ill appearing Orientation: alert, awake and oriented x3 Resp Effort & Inspection: normal respiratory effort, able to speak in complete sentences and no respiratory distress Cardio Rate: regular rate Rhythm: regular rhythm Skin General skin exam: no rashes or lesions noted Neuro General: patient alert, patient awake, patient oriented x3, moves all extremities and no focal motor deficits Sensory Exam: no sensory deficits noted Extrem General: normal exam except as noted Right upper extremity: shoulder/upper arm Details: tenderness Location: over the biceps tendon and other (Normal appearance of the biceps with flexion intact), elbow/forearm Details: tenderness Location: of the antecubital fossa and proximal forearm and abnormal ROM Details: pain with active ROM during, pain with passive ROM during and with range as follows (Reduced but present in all axis), wrist Details: normal to inspection and normal ROM and hand Details: normal to inspection Course Vital Signs Vital signs: Vital Signs Temperature 37 C 04/06/22 18:32 Pulse 104 H 04/06/22 18:32 Respiratory Rate 16 04/06/22 18:32 Blood Pressure 132/84 04/06/22 18:32 Pulse Oximetry 98 04/06/22 18:32 Temperature 37 C 04/06/22 18:32 Temperature Source Temporal Artery Scan 04/06/22 18:32 Pulse 104 H 04/06/22 18:32 Respiratory Rate 16 04/06/22 18:32 Respiratory Effort 04/06/22 18:34 Blood Pressure 132/84 04/06/22 18:32 Blood Pressure Position Sitting 04/06/22 18:32 Pulse Oximetry 98 04/06/22 18:32 Oxygen Delivery Method Nasal Cannula 04/06/22 18:32 Pain Level 8 04/06/22 18:32 PAWSS Have you Been Recently Intoxicated or Drunk Within the Last 30 days?: Yes Have you Ever Experienced Previous Episodes of Alcohol Withdrawal?: No Have you ever Experienced Withdrawal Seizures?: No Have you ever Experienced Delirium Tremens(DT)s?: No Have you ever undergone Alcohol Rehabilitation Treatment (i.e, inpt ot outpatient treatment programs)?: No Have you ever Experienced Blackouts?: No Have you ever Combined Alcohol with other Downers within the last 90 days?: No Have you ever Combined Alcohol with any other Substance of Abuse during the last 90 days?: No Evidence of Increased Autonomic Activity (i.e. HR>120, tremor, sweating, agitat ion, nausea)?: No Result: 1
[2022-04-06 20:27] VITALS: BP 132/84; PULSE 104; RESP 16; TEMP 37; O2SAT 98
== END 2022-04-06 20:25 | disposition home or self-care (01) ==
PROVIDERS: Emergency Provider Nurse Practitioner Family; PCP Nurse Practitioner Adult Health
DX: S56.811A Strain of other muscles, fascia and tendons at forearm level, right arm, initial encounter (principal); X58.XXXA Exposure to other specified factors, initial encounter
CPT/HCPCS: 96372; 99284; 73080; 99283; J1885

== ENCOUNTER 2022-04-10 01:09 | Outpatient (CLI) | payer MEDICAID, SELFPAY ==
[2022-04-10 09:28] LABS: Source Nasal/Nares
[2022-04-10 14:28] LABS: COVID-19 PCR Negative (Negative)
== END 2022-04-10 01:10 | disposition home or self-care (01) ==
LOC: LBO 01:09
PROVIDERS: PCP Nurse Practitioner Adult Health; Visit Provider Student in an Organized Health Care Education/Training Program
DX: Z20.822 Contact with and (suspected) exposure to COVID-19 (principal); Z01.818 Encounter for other preprocedural examination
CPT/HCPCS: 87635

== ENCOUNTER → 2022-04-11 00:36 | Outpatient (CLI) | payer MEDICAID, SELFPAY ==
--- NOTE | 2022-04-11 10:00 | DI.MRI_ITS ---
Exam(s) MR UPPER JOINT RT WO EXAM: MR UPPER JOINT RT WO CLINICAL HISTORY: Distal biceps rupture,TRAUMATIC, S46.211A TECHNIQUE: Multiplanar multisequence MRI of the shoulder was performed. COMPARISON: No exams were available for comparison FINDINGS: MARROW:There is no evidence of fracture. Radial head unremarkable. No osteochondral defect in the c apitellum and trochlea. No abnormal intraosseous signal in the epicondyles. ARTICULATION: No significant elbow joint effusion. No swelling of the olecranon bursa. COLLATERAL LIGAMENTS: Ulnar collateral ligament appears intact. No obvious tear of the radial collat eral ligament. EPICONDYLES: Unremarkable and no obvious signal abnormality in the common flexor and extensor tendons . BICEPS TENDON: Abnormal. There is a high-grade tear of the biceps tendon and the tendon is retracted . There is no prominent signal abnormality in the muscle belly. BRACHIALIS TENDON: Intact. TRICEPS TENDON: Intact COMMON FLEXOR AND EXTENSOR TENDONS: Intact IMPRESSION: 1. There is a full-thickness tear of the biceps tendon some retraction. No other tendon tears. 2. No fractures or bone edema. Epicondyles unremarkable. 3. No bone contusions. No osteochondral defects. DATA REPOSITORY:
== END ==
PROVIDERS: PCP Nurse Practitioner Adult Health; Visit Provider Student in an Organized Health Care Education/Training Program
DX: S46.211A Strain of muscle, fascia and tendon of other parts of biceps, right arm, initial encounter (principal); X58.XXXA Exposure to other specified factors, initial encounter
CPT/HCPCS: 73221

== ENCOUNTER 2022-04-12 07:21 | Day surgery (SDC) | payer MEDICAID, SELFPAY ==
[2022-04-12] VITALS (13 sets, daily range): BP systolic 103–152; BP diastolic 62–108; PULSE 84–112; RESP 14–23; TEMP 36.4–36.9; O2SAT 93–99; BMI 38.1
[2022-04-12] MEDS: Lactated Ringers 1,000 ML 30 ML IV (08:26)
--- NOTE | 2022-04-12 08:38 | W.ANESPRE ---
General Info Date of Service Date Performed: 04/12/22 Height: 5 ft 6 in Weight: 107.2 kg Body Mass Index (BMI): 38.1 Surgical Procedure: Operation Date: 04/12/22 09:10 Proposed Procedure Side Surgeon p Elbow Bicep Tendon Repair Right Meir Regalado MD Meds Allergies and Home Medications Allergies Allergy/AdvReac Type Severity Reaction Status Date / Time lisdexamfetamine dimesylate AdvReac Severe Auditory Verified 04/12/22 07:48 [From Sylvia] Hallucination sertraline AdvReac Severe anger Verified 04/12/22 07:48 Home Medication Medication Instructions Recorded gabapentin 800 mg tablet 800 mg PO TID #90 tabs 02/01/19 omeprazole 40 mg capsule,delayed 40 mg PO BID #60 caps 01/23/22 release Current Visit Medications: Current Medications Generic Name Dose Route Start Last Admin Trade Name Freq PRN Reason Stop Dose Admin Ringer's Solution 1,000 mls @ 30 mls/hr 04/12/22 06:00 IV 05/11/22 23:59 INFUSION LUIS FELIPE Cefazolin Sodium 3,000 mg/ 100 mls @ 200 mls/hr 04/12/22 06:00 Sodium Chloride IVPB 04/12/22 18:00 PREOP LUIS FELIPE IV Miscellaneous Supplies 1 each 04/12/22 06:00 Iv Access IV 05/11/22 23:59 DIRECTED LUIS FELIPE Naproxen 250 - 500 mg 04/12/22 07:15 Naproxen 500 Mg Tab PO BID PRN PRN Oxycodone HCl 5 - 10 mg 04/12/22 07:15 Oxycodone 5 Mg Tab PO Q4H PRN PRN Sodium Chloride 0 ml 04/12/22 06:00 Normal Saline Flush 10 Ml Syr IV 05/11/22 23:59 PRN PRN Sodium Chloride 0 ml 04/12/22 06:00 Normal Saline 10 Ml Vial IJ 05/11/22 23:59 DIRECTED PRN Sterile Water 0 ml 04/12/22 06:00 Water,Injection,Sterile 10 Ml Vial IJ 05/11/22 23:59 DIRECTED PRN PFSH Active Problems Active Problems: Problem Status Onset Code Traumatic rupture of right distal biceps tendon S46.211A Eosinophilic esophagitis K20.0 Follow up Z09 Upper respiratory disease J39.9 Tubular adenoma of colon 03/03/18 D12.6 Tobacco use disorder 07/29/16 F17.200 Substance use disorder 12/22/17 F19.90 PTSD (post-traumatic stress disorder) 03/12/17 F43.10 Abdominal adhesions 07/29/16 Ulcerative esophagitis K22.10 Abnormal abdominal ultrasound R93.5 Encounter for removal of sutures Z48.02 Chronic diarrhea K52.9 Medical History Medical History Acute appendicitis (~05/2015) ADHD Combined Type 12/29/18 Dr Mujica Avoid stimulants/amphetamines s/p several ODs with RX & non-RX meds Bursitis of right shoulder Cubital tunnel syndrome on right Depression (03/12/17) Elevated blood pressure reading (07/29/16) Esophagitis with gastritis 02/2018 colonoscopy & upper EGD: severe reflux esophagitis with ulceration, gastritis, peptic duodenitis; neg H. Pylori, neg gluten sensitivity Abd pain better s/p course of H2 blockers [facility] GI consult 06/2018 Family history of diabetes mellitus (07/29/16) Impaired fasting glucose 110, 07/2020 labs; 5.8% 04/2021 Inflammatory bowel diseases (IBD) (~02/2018) Not identified on 03/03/18 colonoscopy & upper EGD, so ruled-out Intentional amphetamine overdose 04/05/2019 Intentional self-harm by blunt object, initial encounter (01/13/18) Cutting (arms/legs) Intussusception intestine (~02/2018) Question of, not confirmed Laceration of forearm SARS-CoV-2 positive (~06/2021) 06/2021 SLAP lesion of right shoulder Tendonitis of long head of biceps brachii of right shoulder Medical History Comments:: Updated 01/22/22: Pt. stated he was here for EGD and colo. on 11/13/21 and then began to produce a lot of mucus, and stated his oxygen levels dropped into the 70's. Pt. states he currently has PND that he has had for months, has been fully worked up.--01/22/22-per pt. no longer has PND Per [facility]K post note from that procedure: Discussed plan of endotracheal tube for the next anesthetic for more control of the airway. (hx. laryngospasm, and reactive airway). Surgical History Surgical History Appendectomy (06/15/15) Dr Holguin Colonoscopy - MAC (03/03/18) 01/2022 EGD - MAC (03/03/18) History of appendectomy History of colonoscopy History of esophagogastroduodenoscopy (EGD) History of hernia repair History of laparotomy Laparotomy (12/05/17) Resolved intussuscepption, possible inflammatory bowel disease Tobacco Smoking/Tobacco Use Status: Current every day Tobacco Type: cigarettes Counseling given: patient declined Alcohol Alcohol Intake: current Alcohol intake frequency: a few times a week Alcohol type: beer and hard liquor Substance Use Substance use: Never Substance use type: former substance user Vital Signs and Lab Results Vital Signs Most Recent Vital Signs in EMR: Most Recent Vital Signs Temp Pulse Resp BP Pulse Ox 36.8 C 91 H 22 152/108 H 99 04/12/22 07:27 04/12/22 07:27 04/12/22 07:27 04/12/22 07:27 04/12/22 07:27 Lab Results Blood Type / Crossmatch: No Data to Display Complete Blood Count: No Data to Display Complete Metabolic Panel: No Data to Display Liver Function Panel: No Data to Display Coagulation Panel: No Data to Display Cardiac Panel: No Data to Display Arterial Blood Gas: No Data to Display Venous Blood Gas: No Data to Display Pancreas Panel: No Data to Display Thyroid Panel: No Data to Display Infectious Disease: Coronavirus (COVID-19)(PCR) Negative (Negative) 04/10/22 09:10 Coronavirus 2019 Source Nasal/Nares 04/10/22 09:10 Blood Cultures: No Data to Display Toxicology Panel: No Data to Display Anesthesia Assessment and Plan Anesthesia History Personal History: Other Family History: No Family History of Anesthesia Complications Exercise Tolerance Exercise Tolerance: Metabolic Equivalents>4 Pertinent Negatives Pertinent Negatives: No Symptoms of GERD, No Major Cardiovascular Symptoms or Complaints and No Major Pulmonary Symptoms or Complaints Cardiac & Pulmonary Exam Cardiac Exam: Normal S1/S2 Heart Sounds Pulmonary Exam: Clear Bilateral Breath Sounds Implantable Cardiac Device Does patient have a Pacemaker or an ICD?: No Airway Exam Known Difficult Airway: Yes Mallampati Class: 1 Mouth Opening: Normal (> 3cm) Thyromental Distance: Greater than 3 cm Neck Range of Motion: Full ROM Neck Circumference: Normal Teeth Condition: Normal Dentition (Patient remarks one previously broken tooth) and Generalized Poor Dentition ASA Classification ASA Score: ASA 2 Emergency Case?: No NPO Status NPO Status: NPO Clears >2 hours, Solids >8 hours Anesthesia Plan Resuscitation Status: Full Code Anesthesia Technique: General Anesthesia Airway Planned: Endotracheal Tube Pain Management: Surgeon and patient request nerve block Monitors Used: Standard Monitors
--- NOTE | 2022-04-12 09:29 | W.ANESNERVE ---
Nerve Block Single Injection Procedure Date and Time Date Performed: 04/12/22 Procedure Start: 09:00 Location Where Procedure Performed Procedure Location: Day Surgery Unit Reason Performed: Postoperative Analgesia Requesting Provider: Meir Regalado Timeout Performed Timeout Performed: Yes Monitoring Used ECG, Blood Pressure, SpO2 and See EMR for corresponding vital signs Sterility Sterility: Hand Hygiene, Surgical Cap, Surgical Mask, Sterile Gloves and Chlorhexidine Sedation Given During Procedure Sedation Given (Indicate Dose Given): Versed IV Dose:: 4mg Patient Mental Status Patient Mental Status: Awake Nerve Block 1st Nerve Block: Laterality: Right Block Type: Supraclavicular Needle / Catheter Used: 100mm SonoPlex II Local Anesthetic Bolus (Indicate Dose Given): Lidocaine used for local infiltration of skin, Injected in 3-5ml increments after negative blood aspiration and Bupivacaine 0.5% Dose:: 20ml Additives (Indicate Dose Given): None Ultrasound: Sterile probe cover and gel used Ultrasound Image Saved?: Yes Nerve Stimulator: Not Used Paresthesia: None Procedure Tolerated: No Complications and Patient tolerated well Procedure Outcome: Successful Procedure Comment: Awake throughout. Performed By: Collin Hernandez
[2022-04-12] MEDS: ceFAZolin 3,000 MG in Normal Saline 100 ML 200 MG IVPB (09:53)
[2022-04-12] MEDS: Lidocaine 1.5 % Pres-Free W/EPI 1/200,000 30 ML VIAL (11:22)
--- NOTE | 2022-04-12 11:45 | DI.RAD_ITS ---
Exam(s) XR ELBOW RT COMPLETE EXAM: XR ELBOW RT COMPLETE CLINICAL HISTORY: Traumatic rupture of right distal biceps tendon. TECHNIQUE: 2D and realtime digital imaging was provided in the OR for Dr. Regalado COMPARISON: CR,XR XR ELBOW RT COMPLETE from 04/06/2022 FINDINGS: Hard copy images show placement of a suture anchor at the radial tubercle. Please see procedure note for details. Fluoro time 14.1 seconds RADIATION DOSE DELIVERED: casper Hernandez=0.30 mGy
--- NOTE | 2022-04-12 11:49 | W.PM.DSUDISC ---
Discharge Plan Disposition Patient Disposition: HOME Condition: Stable Discharge Details Reason For Visit: Right elbow surgery Attending Provider: Meir Regalado Primary Care Provider: Polina Darby Home Meds and New Rx's Prescriptions: New aspirin 81 mg tablet,delayed release (DR/EC) 81 mg PO DAILY 14 Days Qty: 14 0RF naproxen 250 mg tablet 250 - 500 mg PO BID PRNQty: 40 0RF Rx Instructions: take with a meal oxycodone 5 mg tablet 5 - 10 mg PO Q4H MDD 30 mg PRN (Reason: moderate to severe pain) Qty: 18 0RF Continued gabapentin 800 mg tablet 800 mg PO TID Qty: 90 11RF Rx Instructions: DR. CACERES TAKING OVER RX 01/2019 omeprazole 40 mg capsule,delayed release(DR/EC) 40 mg PO BID Qty: 60 3RF Discharge Instructions Additional Instructions: Surgery: Right distal biceps tendon repair Activity: Non-weightbearing. Keep elbow bent about 90 degrees most of the time for the next 2 weeks. Use sling whenever up and about or out of the home. You may use your hand and fingers lightly for activities of daily living. Do not lift any weight. A physical therapy prescription will be provided separately in the office at follow-up if needed. Prescriptions: Aspirin 81 mg take 1 daily to prevent a blood clot for 2 weeks Naproxen 250 mg take 1-2 every 12 hours with a meal as needed for moderate pain Oxycodone 5 mg take 1-2 every 4-6 hours as needed for severe pain You may use [id number] Tylenol (acetaminophen) as needed for mild pain. These pain medications may be taken all at once or in different combinations as needed. Also, recommend Colace (docusate) as a stool softener as surgery and pain medicine cause constipation. You may try [id number] diphenhydramine (Benadryl) 25-50 mg nightly as a sleep aid Dressings: Leave dressing in place until follow-up. Keep clean and dry at all times. You may adjust/loosen or remove Tone bandage as needed for comfort. Follow-up: 10-[address] Regalado Let us know right away if you develop any redness, drainage, fevers, chest pain, or trouble breathing. Do not drink alcohol or drive for at least 24 hours after anesthesia. Please call the office during business hours with any questions or concerns. Discharge Orders Discharge Orders: Discharge Order (Routine); Ordered 04/12/22 Ordered By: Meir Regalado
--- NOTE | 2022-04-12 12:00 | ROE_ITS ---
Operative Note Operative Note DATE OF PROCEDURE: 04/12/22 PRE-OP DIAGNOSIS: Right distal biceps tendon rupture POST-OP DIAGNOSIS: same PROCEDURE: Right distal biceps tendon repair, CPT #62302 SURGEON: Meir Regalado SQL SSRS DEVELOPER: Keiko Jon ANESTHESIA TYPE: Local By Surgeon and General LMA/ETT Refer to Anesthesia Record ESTIMATED BLOOD LOSS: 15 TOURNIQUET TIME: 0 COMPLICATIONS: None Patient was transported to: PACU Patient's condition: stable Implants: Arthrex distal biceps button Indications: Please see complete medical record for details. Procedure Description: In the operating room, general anesthesia was induced. The patient was positioned supine on the operating room table. All bony prominences were well- padded. Preoperative antibiotics were administered. The site was prepped and draped in the usual sterile fashion. The correct patient, procedure, and side of the procedure were all verified prior to incision. The arm was used to localize the radial tuberosity and a horizontal incision infiltrated with lidocaine and bupivacaine mixture. Skin was opened sharply and care taken to retract and preserve as many neurovascular branches superficially as possible. Blunt dissection was used through subcutaneous tissue and directed down to the radial tuberosity, which was confirmed using forearm supination and pronation. The hand was maintained in supination while the tendon remnant was cleared and exposure obtained for future socket placement. Next, the tendon remnant was able to be reached just barely through the wound past the antecubital fossa as far as I could reach. The tendon could be milked somewhat closer with elbow flexion, but not grasped. A more proximal incision was then pretty injected with local anesthetic and then made with the tendon stump readily obtained. Fiber loop was used to prepare the tendon, which was somewhat diminutive and degenerative. The ends of the stitches were shuttled through the antecubital area at the appropriate site to the distal wound. With careful retraction maintaining arm hyper supination and C arm guidance the radial tuberosity was once again directly exposed and pin placed confirming appropriate placement prior to reaming an 8 mm unicortical socket. Reamings and wound was copiously irrigated. The repair stitches were loaded on the button and then the tapered free needle used to pass the sutures back up through through the tendon end for modified tension side technique. The button was readily passed through the far cortex and flipped. The free ends were used to deliver the tendon and fully seated in the socket and knots securely tied over the tendon through the pre past sutures with the arm in moderate flexion to aid in tension. Final C arm pictures showed excellent blood and placement. Anatomically and the tendon was well seated and in good position. Both wounds were copiously irrigated. Subcutaneous tissue was closed using 2-0 Monocryl interrupted and skin closed using 3-0 Monocryl running. Skin glue applied over both incisions followed by Mepilex Band-Aids. Tone bandages and sling were then applied to the extremity. The patient awoke from anesthesia without complication and was transferred to the recovery room in a stable condition.
[2022-04-12] MEDS: LORazepam 20 MG/10 ML VIAL IVP (13:15)
[2022-04-12] MEDS: Naproxen 500 MG TAB PO (13:41)
--- NOTE | 2022-04-12 15:30 | W.ANESPOSTOP ---
Postoperative Evaluation Date, Time and Location Date Performed: 04/12/22 Time Performed: 14:15 Patient Location: Day Surgery Unit Vital Signs Most Recent Imported Vital Signs: Most Recent Vital Signs Temp Pulse Resp BP Pulse Ox 36.6 C 89 17 118/80 95 04/12/22 14:11 04/12/22 14:11 04/12/22 14:11 04/12/22 14:11 04/12/22 14:11 Pain Score Most Recent Pain Score: Most Recent Pain Score Pain Level 1 04/12/22 14:11 Assessment Mental Status: Awake (Alert & Oriented to Patient Baseline) Airway and Respiratory Function: Patent airway with normal (patient baseline) respiratory exam Cardiovascular Function: Hemodynamically Stable Hydration Status: Adequately Hydrated Nausea & Vomiting: No Nausea or Vomiting Pain: Pt. Denies Any Pain Peripheral Nerve Block: Regional nerve block not resolved at time of post operative discharge
== END 2022-04-12 14:30 | disposition home or self-care (01) ==
PROVIDERS: PCP Nurse Practitioner Adult Health; Visit Provider Student in an Organized Health Care Education/Training Program
PROC: (CPT 24341; principal; 2022-04-12 09:00)
DX: S46.211A Strain of muscle, fascia and tendon of other parts of biceps, right arm, initial encounter (principal); X58.XXXA Exposure to other specified factors, initial encounter; F17.210 Nicotine dependence, cigarettes, uncomplicated; R73.01 Impaired fasting glucose
CPT/HCPCS: 24342; 76942; 73080; J0690; J1885; J2250; J2405; J2704; J3490

== ENCOUNTER 2022-05-02 13:27 | Emergency (ER) | payer MEDICAID, SELFPAY ==
[2022-05-02 13:36] VITALS: BP 119/81; PULSE 110; RESP 28; TEMP 36.7; O2SAT 97
== END 2022-05-02 14:07 ==
PROVIDERS: PCP Nurse Practitioner Adult Health
DX: Z53.21 Procedure and treatment not carried out due to patient leaving prior to being seen by health care provider (principal)

== ENCOUNTER 2022-07-04 02:38 | Outpatient (CLI) | payer MEDICAID, SELFPAY ==
[2022-07-04 14:53] LABS: HCT 49.5 % (40.0-50.0); HGB 16.5 g/dL (13.5-17.5); MCH 29.6 pg (27.0-33.0); MCHC 33.3 % (32.0-36.0); MCV 89 fL (80-95); MPV 10.4 fL (8.0-11.0); Platelet Count 352 10^3/uL (130-400); RBC 5.57 10^6/uL (4.36-5.78); RDW 12.7 % (11.8-14.1); RDW-SD 41.9 fL; WBC 9.44 10^3/uL (4.4-10.8)
[2022-07-04 15:52] LABS: ALT 46 U/L (16-63); AST 24 U/L (15-37); Albumin 3.8 g/dL (3.4-5.0); Alkaline Phosphatase 99 U/L (46-116); Anion Gap 7.4 mmol/L (3-11); BUN 14 mg/dL (7-18); Bilirubin, Total 0.2 mg/dL (0.2-1.0); CO2 28.6 mmol/L (21.0-32.0); CREATININE 1.2 mg/dL (0.70-1.30); Calcium 9.5 mg/dL (8.5-10.1); Chloride 101 mmol/L (98-107); Estimated GFR 81.38 (mL/min/1.73m2); Glucose 98 mg/dL (74-106); Potassium 4.3 mmol/L (3.5-5.1); Sodium 137 mmol/L (136-145); Total Protein 7.8 g/dL (6.4-8.2)
[2022-07-04 16:00] LABS: Hemoglobin A1C 5.9 % (<5.7)
[2022-07-08 11:14] LABS: HIV-1/2 Ag & Ab Screen Negative (Negative)
[2022-07-08 11:17] LABS: Hepatitis C Ab w Rflx HCV PCR Negative (Negative)
== END 2022-07-04 02:39 | disposition home or self-care (01) ==
LOC: LBO 02:38
PROVIDERS: PCP Nurse Practitioner Adult Health; Visit Provider Nurse Practitioner Adult Health
DX: D58.2 Other hemoglobinopathies (principal); R73.01 Impaired fasting glucose; R74.01 Elevation of levels of liver transaminase levels; Z11.4 Encounter for screening for human immunodeficiency virus [HIV]; Z11.59 Encounter for screening for other viral diseases
CPT/HCPCS: 36415; 80053; 85027; 86803; 87389; 83036

== ENCOUNTER 2022-09-04 12:13 | Outpatient (REF) | payer MEDICAID, SELFPAY | END 2022-09-04 12:14 | disposition home or self-care (01) | LOC: LBN 12:13 | PROVIDERS: PCP Nurse Practitioner Adult Health; Visit Provider Nurse Practitioner Family | DX: J02.9 Acute pharyngitis, unspecified (principal) | CPT/HCPCS: 87070 ==

== ENCOUNTER 2023-01-29 08:00 | Emergency (ER) | payer MEDICAID, SELFPAY ==
[2023-01-29 08:04] VITALS: BP 167/103; PULSE 90; RESP 15; TEMP 36.2; O2SAT 100
[2023-01-29 08:08] VITALS: RESP 15
--- NOTE | 2023-01-29 08:29 | W.ED.GENAD ---
Discharge Plan Disposition Patient Disposition: Home Condition: Stable Discharge Details Clinical Impression: Acute seasonal allergic rhinitis, Tinnitus of both ears, Elevated BP without diagnosis of hypertension, Anxiety about health Primary Care Provider: Polina Darby ED Provider: Buster Moyer Home Meds and New Rx's Prescriptions: New cetirizine [Allergy Relief (cetirizine)] 5 mg tablet 5 mg PO DAILY Qty: 14 0RF Continued venlafaxine 37.5 mg capsule,extended release 24hr 37.5 mg PO DAILY Hold Instructions: Home Medication placed on hold at Doctor's office Patient Comments: Pt no longer taking 01/29/23 CT fluticasone propionate [Flonase Allergy Relief] 50 mcg/actuation spray,suspension 1 - 2 spray intranasal DAILY Qty: 16 1RF Rx Instructions: administer into each nostril for 1-2months for eustachian tube dysfunction omeprazole 20 mg capsule,delayed release(DR/EC) 20 mg PO BID Qty: 180 3RF Discharge Instructions Instructions: Allergic Rhinitis (ED), Anxiety (ED) Additional Instructions: Please take your medication as prescribed and follow-up with your primary care provider for reassessment preferably in the next couple weeks. If you develop any new or significant worsening of symptoms feel free to return the emergency department for reassessment otherwise follow-up with primary care provider as discussed. Referrals: Polina Darby, [employer] [Primary Care Provider] - Medical Decision Making Patient presenting to the emergency department with multiple chief complaints. Patient reports his main complaint is tinnitus bilateral over the last couple weeks. He does state some intermittent sinus drainage, sinus pressure, intermittent balance issues and muscular cramping. He does also state some neck discomfort. Patient reports that he has had this in the past but this seems to be a little bit worse due to him not taking his psychiatric medications and his paranoia has increased. Patient denies any fever chills, denies any current pain or discomfort, difficulty breathing chest pain or other symptoms. Only physical exam finding was some slight fluid and erythema to left TM. Did review patient's past medical history and he does have a history of tendinitis in the past along with PTSD and anxiety reactions. Did discuss with patient high likelihood of his symptoms being seasonal allergies with some serous otitis media. Offered to treat patient symptomatically and have patient follow-up with primary care provider or check labs. Due to patient's paranoia that he is preferring laboratory work-up which I will include a monotest given some general malaise fatigue and URI type symptoms. Pending results we will give patient Zyrtec to see if this helps. Reviewed patient's labs and CBC shows only slight elevation of RBCs, slight decrease in lymphocytes otherwise nondiagnostic. CMP shows sodium of 135, anion gap of 12.7, and glucose of 131 otherwise all other findings within normal range, patient is negative for mono and TSH is on the low end of normal range. Do feel that some of patient's lab abnormalities are indicative of some dehydration but I do feel that oral hydration on an outpatient basis is sufficient. I did discuss this with patient who is agreeable to to plan of care of outpatient monitoring and will start patient on Zyrtec and Flonase to see if this helps with some of his symptoms. After discussion of diagnosis and plan of care patient has no further needs, questions, or concerns and states clear understanding to return to the emergency department for any worsening symptoms. This documentation was generated using [employer] dictation system, please disregard any oddities of phrase or misspellings. Lab Data Lab results reviewed: Yes I reviewed the patient's lab results. HPI General Mode of arrival: ambulatory. Date/Time Provider Initiated Documentation: 01/29/23 08:00. Limitations to Documentation: no limitations. Information obtained by: patient and RN notes reviewed. History of Present Illness 37 year old M presents to the emergency department with the chief complaint of Ringing in his ears, described as moderate, Quality is described as aching, and is localized to the face. Patient reports no radiation. Patient started experiencing this week(s) (2) and it has been intermittent. No relieving factors improve symptom(s), No exacerbating factors reported . Patient notes headaches, malaise and rash; denies chest pain, cough and fever/chills. Patient did receive the following treatments prior to arrival, none Related Data Home Medications Medication Instructions Recorded Confirmed venlafaxine 37.5 mg 37.5 mg PO DAILY 06/07/22 09/04/22 capsule,extended release 24 hr fluticasone propionate 50 1 - 2 spray intranasal DAILY #16 07/03/22 01/29/23 mcg/actuation nasal grams spray,suspension (Flonase Allergy Relief) omeprazole 20 mg capsule,delayed 20 mg PO BID #180 caps 07/15/22 01/29/23 release cetirizine 5 mg tablet (Allergy 5 mg PO DAILY #14 tabs 01/29/23 Relief (cetirizine)) Previous Rx's Medication Instructions Recorded fluticasone propionate 50 1 - 2 spray intranasal DAILY #16 07/03/22 mcg/actuation nasal grams spray,suspension (Flonase Allergy Relief) omeprazole 20 mg capsule,delayed 20 mg PO BID #180 caps 07/15/22 release cetirizine 5 mg tablet (Allergy 5 mg PO DAILY #14 tabs 01/29/23 Relief (cetirizine)) Allergies Allergy/AdvReac Type Severity Reaction Status Date / Time lisdexamfetamine dimesylate AdvReac Severe Auditory Verified 01/29/23 08:07 [From Vyvreneae] Hallucination sertraline AdvReac Severe anger Verified 01/29/23 08:07 methylphenidate AdvReac Unknown Other (See Verified 01/29/23 08:07 [From Concerta] Comment) General Stated Complaint: GenMedical SLY: 3 Review of Systems Constitutional Constitutional: Denies chills, Reports fatigue, Denies fever(s), Reports headache(s), Reports lethargy and Reports malaise ENT Ears, Nose, Mouth, and Throat: Denies ear discharge, Reports headache(s), Reports nasal congestion, Reports neck pain, Denies odynophagia, Reports post nasal drip, Reports tinnitus and Reports sinus pressure Cardiovascular Cardiovascular: Denies chest pain and Denies dyspnea Respiratory Respiratory: Denies dyspnea Gastrointestinal Gastrointestinal: Denies abdominal pain, Reports diarrhea (After taking some antibiotics) and Denies odynophagia Musculoskeletal Musculoskeletal: Denies back pain, Reports muscle cramps and Reports neck pain Integumentary/Breasts Skin/Breast: Reports rash Neurologic Neurologic: Reports headache(s) Endocrine Endocrine: Reports fatigue PFSH All Active Problems (Updated 01/29/23 @ 09:57 by Buster Moyer NP) Acute seasonal allergic rhinitis (Acute) Anxiety about health (Acute) Elevated BP without diagnosis of hypertension (Chronic ~2021) Tinnitus of both ears (Acute ~06/2022) Impaired fasting glucose (Acute ~07/2020) 110, 07/2020 labs; 5.8% 04/2021 Traumatic rupture of right distal biceps tendon (Acute ~03/2022) Eosinophilic esophagitis (Acute) Tubular adenoma of colon (Chronic 03/03/18) Rectal polyp pathology 03/03/2018 Repeat colonoscopy 2021 (neg with recall in 2026) Tobacco use disorder (Chronic 07/29/16) Cigs 1PPD Substance use disorder (Chronic 12/22/17) Tramadol [place] 2017) [place] [place] Amphetamine OD [place] 04/05/2019) Amphetamine OD (10/2019, [facility]) Amphetamine OD (01/2020, [facility]) Stimulant misuse (06/2022--reported) PTSD (post-traumatic stress disorder) (Chronic 03/12/17) Medical History Abdominal adhesions (07/29/16) Explor lap 2018 Abnormal abdominal ultrasound Acute appendicitis (~05/2015) ADHD Combined Type 12/29/18 Dr Mujica Avoid stimulants/amphetamines s/p several ODs with RX & non-RX meds Bursitis of right shoulder Chronic diarrhea Cubital tunnel syndrome on right Depression (03/12/17) Elevated blood pressure reading (07/29/16) Esophagitis with gastritis 02/2018 colonoscopy & upper EGD: severe reflux esophagitis with ulceration, gastritis, peptic duodenitis; neg H. Pylori, neg gluten sensitivity Abd pain better s/p course of H2 blockers [facility] [place] Family history of diabetes mellitus (07/29/16) Inflammatory bowel diseases (IBD) (~02/2018) Not identified on 03/03/18 colonoscopy & upper EGD, so ruled-out Intentional amphetamine overdose 04/05/2019 Intentional self-harm by blunt object, initial encounter (01/13/18) Cutting (arms/legs) Intussusception intestine (~02/2018) Question of, not confirmed Laceration of forearm SARS-CoV-2 positive (~06/2021) 06/2021 SLAP lesion of right shoulder Tendonitis of long head of biceps brachii of right shoulder Ulcerative esophagitis (~2018) 07/05/19 GI at [facility] Surgical History Appendectomy (06/15/15) Dr TLarson Colonoscopy - MAC (03/03/18) 01/2022 EGD - MAC (03/03/18) History of appendectomy History of colonoscopy History of esophagogastroduodenoscopy (EGD) History of hernia repair History of laparotomy Laparotomy (12/05/17) Resolved intussuscepption, possible inflammatory bowel disease S/P tendon repair (~03/2022) Family History Mother Mental disorder Manic depression and bipolar Father Essential hypertension Ulcerative colitis Other Asthma Social History Smoking/Tobacco Use Status: Current every day Tobacco Type: cigarettes Tobacco: How many years used: 13 Quit status: not considering quitting Counseling given: patient declined Smoking risk assessment performed?: Yes Alcohol Intake: current Alcohol Intake frequency: a few times a week Alcohol type: beer and hard liquor Drug use: Daily Substance use type: marijuana Details: former substance user Household members: spouse and children Housing: apartment Number of Children: 3 current occupation: cares for with [employer] Pets and animals: Yes (Dog) Sexually active: Yes Current gender identity: male Do you feel safe at home: Yes Do you feel safe in your relationship?: Yes Exam Const General: cooperative, comfortable and no acute distress Orientation: alert, awake and oriented x3 HENMT Head: normal to inspection, normocephalic and atraumatic Ears: hearing grossly normal bilaterally, TM normal on the right and TM abnormal erythematous on the left and with fluid behind the TM on the left General nose exam: external nose normal Face and sinus: no erythema and sinus tenderness ethmoid and maxillary Mouth: oral mucosae normal, lip normal, tongue normal, no drooling, no muffled voice and no trismus Throat: posterior oropharynx normal, tonsils normal and uvula midline Eyes Visual Ng: normal visual ng by confrontation Alignment and Position: alignment normal Periorbital: periorbital findings normal Eyelids: eyelids normal Sclera: sclerae normal Cornea: corneas normal Pupils: PERRL EOM: EOM intact bilaterally Neck Neck: normal visual inspection, full ROM, no lymphadenopathy, no meningeal signs, trachea midline and supple Resp Effort & Inspection: normal respiratory effort and able to speak in complete sentences Cardio Rate: regular rate Rhythm: regular rhythm Heart Sounds: S1 normal, S2 normal, normal S1 and S2, no click, no gallops, no murmurs and no rubs Skin General skin exam: no rashes or lesions noted and dry skin (warm) Neuro General: patient alert, patient awake, patient oriented x3, gait normal and moves all extremities Cognition: normal cognition Speech: speech normal Motor: muscle tone normal throughout, strength 5/5 throughout, no pronator drift, no movement abnormalities noted and no fasciculations Sensory Exam: no sensory deficits noted Coordination: [id number] test normal and Does not sway with eyes open Course Vital Signs Vital signs: Vital Signs Temperature 36.2 C L 01/29/23 08:04 Pulse 90 01/29/23 08:04 Respiratory Rate 15 01/29/23 08:04 Blood Pressure 167/103 H 01/29/23 08:04 Pulse Oximetry 100 01/29/23 08:04 Temperature 36.2 C L 01/29/23 08:04 Temperature Source Temporal Artery Scan 01/29/23 08:04 Pulse 90 01/29/23 08:04 Respiratory Rate 15 01/29/23 08:08 Respiratory Effort Normal 01/29/23 08:08 Respiratory Depth Normal 01/29/23 08:08 Respiratory Pattern Normal 01/29/23 08:08 Blood Pressure 167/103 H 01/29/23 08:04 Blood Pressure Position Sitting 01/29/23 08:04 Pulse Oximetry 100 01/29/23 08:04 Oxygen Delivery Method Room Air 01/29/23 08:04 Oxygen Flow Rate 0 01/29/23 08:04 Pain Level 3 01/29/23 08:04
[2023-01-29] MEDS: Cetirizine 10 MG TAB PO (08:42)
[2023-01-29 09:14] LABS: Abs Immature Grans 0.02 10^3/uL (0.0-0.06); Absolute Basophil Count 0.02 10^3/uL (0.0-0.2); Absolute Eosinophil Count 0.35 10^3/uL (0.0-0.7); Absolute Lymphocyte Count 1.16 10^3/uL (1.2-3.4); Absolute Monocyte Count 0.51 10^3/uL (0.1-0.8); Absolute Neutrophil Count 6.14 10^3/uL (1.2-6.7); Basophils % 0.2; Eosinophils % 4.3; HCT 49.6 % (40.0-50.0); HGB 17.4 g/dL (13.5-17.5); Immature Grans % 0.2; Lymphocytes % 14.1; MCH 29.4 pg (27.0-33.0); MCHC 35.1 % (32.0-36.0); MCV 84 fL (80-95); MPV 10.5 fL (8.0-11.0); Monocytes % 6.2; Platelet Count 297 10^3/uL (130-400); RBC 5.91 10^6/uL (4.36-5.78); RDW 11.9 % (11.8-14.1); RDW-SD 36.3 fL
[2023-01-29 09:22] LABS: Mono Screening Negative (Negative)
[2023-01-29 09:45] LABS: ALT 52 U/L (16-63); AST 31 U/L (15-37); Albumin 4.1 g/dL (3.4-5.0); Alkaline Phosphatase 85 U/L (46-116); Anion Gap 12.7 mmol/L (3-11); BUN 12 mg/dL (7-18); Bilirubin, Total 0.5 mg/dL (0.2-1.0); CO2 21.3 mmol/L (21.0-32.0); CREATININE 1.3 mg/dL (0.70-1.30); Calcium 9.5 mg/dL (8.5-10.1); Chloride 101 mmol/L (98-107); Estimated GFR 73.47 (mL/min/1.73m2); Glucose 131 mg/dL (74-106); Potassium 3.5 mmol/L (3.5-5.1); Sodium 135 mmol/L (136-145); TSH (W/Ref FT4) 0.38 uIU/mL (0.36-3.74)
[2023-01-29 10:24] VITALS: BP 143/88; PULSE 70; RESP 20; O2SAT 96
--- NOTE | 2023-01-29 18:29 | NUR.NOTE ---
Nursing Note: Referral faxed to PCP for recheck tinnitus/in 1 to 2 weeks.
== END 2023-01-29 10:29 | disposition home or self-care (01) ==
PROVIDERS: Emergency Provider Nurse Practitioner Family; PCP Nurse Practitioner Adult Health
DX: H93.13 Tinnitus, bilateral (principal); R03.0 Elevated blood-pressure reading, without diagnosis of hypertension; J30.2 Other seasonal allergic rhinitis; F41.9 Anxiety disorder, unspecified
CPT/HCPCS: 80053; 99283; 83735; 84443; 85025; 86308; 99284

== ENCOUNTER 2023-06-11 11:22 | Emergency (ER) | payer MEDICAID, SELFPAY | END 2023-06-11 12:11 | disposition left against medical advice (07) | LOC: ER 11:35 | PROVIDERS: PCP Nurse Practitioner Adult Health | DX: Z53.21 Procedure and treatment not carried out due to patient leaving prior to being seen by health care provider (principal) ==

== ENCOUNTER 2023-08-10 09:19 | Emergency (ER) | payer MEDICAID, SELFPAY ==
[2023-08-10] VITALS (15 sets, daily range): BP systolic 144–145; BP diastolic 79–84; PULSE 46–76; RESP 10–29; TEMP 36.8
--- NOTE | 2023-08-10 09:45 | DI.CT_ITS ---
Exam(s) CT ABDOMEN PELVIS W EXAM: CT ABDOMEN PELVIS W CLINICAL HISTORY: Abdominal Pain, N/V. TECHNIQUE: Imaging Protocol: Axial computed tomography images with coronal and sagittal reformatted images were created and reviewed CONTRAST MATERIAL: Intravenous: Omnipaque 350 Contrast volume:100 ml Oral: / no COMPARISON: CT CT ABDOMEN PELVIS W from 12/06/2021 FINDINGS: ABDOMEN and PELVIS: Lung Bases: No acute findings. Small hiatal hernia. Liver: Normal density. No measurable mass. Gallbladder and biliary tract: No radiodense calculus or dilation. Pancreas: Normal density. No abnormal calcifications or inflammatory process. No evidence of mass. Spleen: Normal. Kidneys: Normal size, contour and axis. No radiodense stones. No obstructive uropathy. No suspicious masses seen. Adrenal glands: No masses seen. Vasculature: Abdominal aorta non-dilated. Soft tissues: Ovoid fluid collection in the left lower quadrant, anterior to iliopsoas muscle slightl y smaller than prior. Findings related to prior left inguinal hernia repair. Minimal amount of fat seen in right inguinal canal. Prior. Bladder: No gross wall thickening. No calculi.No focal mass. Bowel: No obstruction. No bowel wall thickening. Appendix not seen. Little fecal material. Peritoneal cavity: No ascites. No focal collection or mesenteric inflammatory response. Bones: Unremarkable for age. Reproductive organs: Within normal limits. Lymph nodes: Unremarkable. IMPRESSION:: Small left lower quadrant fluid collection, related to prior inguinal hernia repair. N o acute abnormality. RADIATION DOSE DELIVERED: Total DLP DATA REPOSITORY: All CT scans at this facility are submitted to the National Radiology Data Registry (NRDR) Dose Index Registry (DIR) with the [employer] (ACR). RADIATION OPTIMIZATION: All CT scans at this facility use at least one of these dose optimization te chniques: automated exposure control; mA and/or kV adjustment per patient size (includes targeted exa ms where dose is matched to clinical indication); or iterative reconstruction.
--- NOTE | 2023-08-10 09:49 | W.ED.GENAD ---
Discharge Plan Disposition Patient Disposition: Home Condition: Stable Discharge Details Clinical Impression: Nausea & vomiting, Abdominal pain Primary Care Provider: Poilna Darby ED Provider: Alaina Chaudhary Home Meds and New Rx's Prescriptions: New ondansetron 4 mg tablet,disintegrating 4 mg PO Q8H PRN (Reason: nausea and vomiting) 4 Days Qty: 9 0RF Rx Instructions: Take 1 tablet up to 3 times daily as needed for nausea and vomiting 20 minutes prior to meals. dicyclomine 10 mg capsule 10 mg PO TID PRN (Reason: abdominal pain) Qty: 14 0RF Rx Instructions: Take one capsule by mouth up to 3 times daily as needed for stomach cramps No Action omeprazole 20 mg capsule,delayed release(DR/EC) 20 mg PO BID Qty: 180 3RF Discharge Instructions Instructions: Acute Nausea and Vomiting (ED), Abdominal Pain (ED) Additional Instructions: Please take the nausea medications as directed. No evidence of obstruction on CT of the abdomen. Follow up with primary care provider in 3-5 days. Return to ED sooner if any worsening or concerns. Increase oral fluids. Please take Tylenol or Ibuprofen with food every 4-6 hours as needed for pain and swelling. Referrals: Polina Darby, REEL CUTTER [Primary Care Provider] - 3 days Medical Decision Making 37-year-old male presents to the ER with a chief complaint of abdominal pain, nausea vomiting which began around 3:00 this morning. He does have a history of inflammatory bowel disease, intussusception, appendectomy and left-sided inguinal hernia repair. Does have a also a history of chronic diarrhea ulcerative esophagitis, depression. Associated symptoms include diaphoresis chills and lightheadedness. He does endorse marijuana. Denies any illicit drugs or alcohol. Work-up ordered including CBC CMP lipase, urinalysis liter fluids Zofran and morphine. Patient discharged with Zofran, discussed lab results and CT results, verbalized understanding. This text was generated using [employer] system, please disregard any oddities of phrase or misspellings. Imaging Data Radiologic Study: Imaging: CT Scan Radiologist's impression: CT ABDOMEN PELVIS W 12/06/2021 1:23 PM FINDINGS: Liver: Normal. No mass. Gallbladder and bile ducts: Normal. No calcified stones. No ductal dilation. Pancreas: Normal. No ductal dilation. Spleen: Normal. No splenomegaly. Adrenal glands: Normal. No mass. Kidneys and ureters: There is no evidence of renal or ureteral calcifications. Stomach and bowel: Unremarkable. No obstruction. No mucosal thickening. Appendix: No evidence of appendicitis. Intraperitoneal space: 2.47 x 1.3 fluid collection anterior to the iliopsoas muscle on the left. . Series 4 image 69 It was present in November 2021. Vasculature: Unremarkable. No abdominal aortic aneurysm. Lymph nodes: Unremarkable. No enlarged lymph nodes. Urinary bladder: Unremarkable as visualized. Reproductive: Unremarkable as visualized. Bones/joints: Unremarkable. No acute fracture. Soft tissues: Unremarkable. IMPRESSION: 2.47 x 1.3 fluid collection anterior to the iliopsoas muscle on the left. It was present in November 2021. Differential includes abscess, hematoma, seroma. Thank you for allowing us to participate in the care of your patient. Dictated and Authenticated by: Abram Wilde MD Lab Data Lab results reviewed: Yes I reviewed the patient's lab results. Labs: Laboratory Tests Range/Units 08/10/23 08/10/23 09:55 10:40 WBC (4.4-10.8) 10^3/uL 8.38 RBC (4.36-5.78) 10^6/uL 5.84 H Hgb (13.5-17.5) g/dL 17.1 Hct (40.0-50.0) % 49.2 MCV (80-95) fL 84 MCH (27.0-33.0) pg 29.3 MCHC (32.0-36.0) % 34.8 RDW (11.8-14.1) % 12.7 Plt Count (130-400) 10^3/uL 329 MPV (8.0-11.0) fL 10.2 Immature Gran % 0.2 Neutrophils % 88.8 Lymphocytes % 8.4 Monocytes % 1.6 Eosinophils % 0.6 Basophils % 0.4 Nucleated RBC % (0.0-0.3) % 0.0 Absolute Neutrophils (1.2-6.7) 10^3/uL 7.45 H Absolute Lymphocytes (1.2-3.4) 10^3/uL 0.70 L Absolute Monocytes (0.1-0.8) 10^3/uL 0.13 Absolute Eosinophils (0.0-0.7) 10^3/uL 0.05 Absolute Basophils (0.0-0.2) 10^3/uL 0.03 Sodium (136-145) mmol/L 138 Potassium (3.5-5.1) mmol/L 3.7 Chloride (98-107) mmol/L 103 Carbon Dioxide (21.0-32.0) mmol/L 25.3 Anion Gap (3-11) mmol/L 9.7 BUN (7-18) mg/dL 10 Creatinine (0.70-1.30) mg/dL 1.2 Est GFR (CKD-EPI 2020) (mL/min/1.73m2) 80.88 Glucose (74-106) mg/dL 140 H Calcium (8.5-10.1) mg/dL 10.0 Magnesium (1.8-2.4) mg/dL 2.1 Total Bilirubin (0.2-1.0) mg/dL 0.5 AST (15-37) U/L 29 ALT (16-63) U/L 35 Alkaline Phosphatase (46-116) U/L 75 Total Protein (6.4-8.2) g/dL 8.0 Albumin (3.4-5.0) g/dL 4.2 Lipase (16-77) U/L 27 Urine Color (Yellow) Yellow Urine Clarity (Clear) Clear Urine pH (5-8) 8.5 H Ur Specific [place] (1.005-1.025) 1.015 Urine Protein (Negative) mg/dL Negative Urine Ketones (Negative) mg/dL 80 H Urine Blood (Negative) Trace-intact H Urine Nitrite (Negative) Negative Urine Bilirubin (Negative) Negative Urine Urobilinogen (Up to 0.2) mg/dL 0.2 Ur Leukocyte Esterase (Negative) Negative Urine RBC (0-2) HPF 3-5 H Urine WBC (0-5) HPF 0-2 Ur Epithelial Cells (Negative) HPF Rare Urine Crystals (Negative) HPF Negative Urine Bacteria (Negative) HPF Negative Urine Casts (Negative) LPF Negative Urine Mucus (Negative) Negative Ur Culture Indicated? No Urine Glucose (Negative) mg/dL 100 H HPI General Mode of arrival: ambulatory. Date/Time Provider Initiated Documentation: 08/10/23 09:21. Limitations to Documentation: no limitations. Information obtained by: patient, family, RN notes reviewed and old records reviewed. HPI Narrative: 37-year-old male presents to the ER with a chief complaint of abdominal pain, nausea vomiting which began around 3:00 this morning. He does have a history of inflammatory bowel disease, intussusception, appendectomy and left-sided inguinal hernia repair. Does have a also a history of chronic diarrhea ulcerative esophagitis, depression. Associated symptoms include diaphoresis chills and lightheadedness. He does endorse marijuana. Denies any illicit drugs or alcohol. Related Data Home Medications Medication Instructions Recorded Confirmed omeprazole 20 mg capsule,delayed 20 mg PO BID #180 caps 07/15/22 08/10/23 release dicyclomine 10 mg capsule 10 mg PO TID PRN abdominal pain 08/10/23 #14 caps ondansetron 4 mg disintegrating 4 mg PO Q8H PRN nausea and 08/10/23 tablet vomiting 4 days #9 tabs Previous Rx's Medication Instructions Recorded omeprazole 20 mg capsule,delayed 20 mg PO BID #180 caps 07/15/22 release dicyclomine 10 mg capsule 10 mg PO TID PRN abdominal pain 08/10/23 #14 caps ondansetron 4 mg disintegrating 4 mg PO Q8H PRN nausea and 08/10/23 tablet vomiting 4 days #9 tabs Allergies Allergy/AdvReac Type Severity Reaction Status Date / Time lisdexamfetamine dimesylate AdvReac Severe Auditory Verified 08/10/23 09:40 [From Vyvanse] Hallucination sertraline AdvReac Severe anger Verified 08/10/23 09:40 methylphenidate AdvReac Unknown Other (See Verified 08/10/23 09:40 [From Concerta] Comment) General Stated Complaint: Abd Prob SLY: 3 Review of Systems All systems reviewed & are unremarkable except as noted in HPI and below Gastrointestinal Gastrointestinal: Reports abdominal pain, Reports nausea and Reports vomiting PFSH All Active Problems (Updated 08/10/23 @ 12:14 by Alaina Chaudhary NP) Abdominal pain (Acute) Nausea & vomiting (Acute) COVID-19 (Acute) TMJ arthralgia (Acute) Elevated BP without diagnosis of hypertension (Chronic ~2021) Tinnitus of both ears (Acute ~06/2022) Impaired fasting glucose (Acute ~07/2020) 110, 07/2020 labs; 5.8% 04/2021 Traumatic rupture of right distal biceps tendon (Acute ~03/2022) Eosinophilic esophagitis (Acute) Tubular adenoma of colon (Chronic 03/03/18) Rectal polyp pathology 03/03/2018 Repeat colonoscopy 2021 (neg with recall in 2026) Tobacco use disorder (Chronic 07/29/16) Cigs 1PPD Substance use disorder (Chronic 12/22/17) Tramadol ([facility] 2017) Vyvanse ([facility] 2015) Amphetamine OD ([facility] 04/05/2019) Amphetamine OD (10/2019, [facility]) Amphetamine OD (01/2020, [facility]) Stimulant misuse (06/2022--reported) PTSD (post-traumatic stress disorder) (Chronic 03/12/17) Medical History SARS-CoV-2 positive (~06/2021) 06/2021 Chronic diarrhea Abnormal abdominal ultrasound Laceration of forearm Cubital tunnel syndrome on right Bursitis of right shoulder Tendonitis of long head of biceps brachii of right shoulder SLAP lesion of right shoulder Ulcerative esophagitis (~2018) 07/05/19 GI at [facility] Intentional amphetamine overdose 04/05/2019 ADHD Combined Type 12/29/18 Dr Mujica Avoid stimulants/amphetamines s/p several ODs with RX & non-RX meds Elevated blood pressure reading (07/29/16) Esophagitis with gastritis 02/2018 colonoscopy & upper EGD: severe reflux esophagitis with ulceration, gastritis, peptic duodenitis; neg H. Pylori, neg gluten sensitivity Abd pain better s/p course of H2 blockers [facility] GI consult 06/2018 Abdominal adhesions (07/29/16) Explor lap 2018 Depression (03/12/17) Family history of diabetes mellitus (07/29/16) Intentional self-harm by blunt object, initial encounter (01/13/18) Cutting (arms/legs) Intussusception intestine (~02/2018) Question of, not confirmed Inflammatory bowel diseases (IBD) (~02/2018) Not identified on 03/03/18 colonoscopy & upper EGD, so ruled-out Acute appendicitis (~05/2015) Surgical History S/P tendon repair (~03/2022) History of laparotomy History of hernia repair History of appendectomy History of esophagogastroduodenoscopy (EGD) History of colonoscopy Laparotomy (12/05/17) Resolved intussuscepption, possible inflammatory bowel disease EGD - MAC (03/03/18) Colonoscopy - MAC (03/03/18) 01/2022 Appendectomy (06/15/15) Dr Holguin Family History Mother Mental disorder Manic depression and bipolar Father Essential hypertension Ulcerative colitis Other Asthma Social History Smoking/Tobacco Use Status: Current every day Tobacco Type: cigarettes Tobacco: How many years used: 13 Quit status: not considering quitting Counseling given: patient declined Smoking risk assessment performed?: Yes Alcohol Intake: current Alcohol Intake frequency: a few times a week Alcohol type: beer and hard liquor Drug use: Daily Substance use type: marijuana Details: former substance user Household members: spouse and children Housing: apartment Number of Children: 3 current occupation: cares for with [employer] Pets and animals: Yes (Dog) Sexually active: Yes Current gender identity: male Do you feel safe at home: Yes Do you feel safe in your relationship?: Yes Exam Narrative Exam Narrative: Constitutional: Alert and oriented x3. Appears stated age. Normal body habitus. Head: Normocephalic, no trauma. Eyes: Pupils PERRL, Red reflex noted, EOM's intact. Eyelids symmetrical without lesions, discharge, or swelling. ENT: Bilateral TM's WNL, External ear normal to inspection, no mastoid TTP, swelling, or erythema, Nasal turbinates WNL, no nasal discharge. Normal dentition, Posterior pharynx WNL, no exudate. Chest: RRR, Normal S1, S2, distal pulses intact. Resp: Lungs clear to auscultation bilaterally, no wheezes, rales, or rhonchi. Abdomen: Soft, non-distended, Normoactive bowel sounds all 4 quads. Tenderness with palpation left upper quadrant. Musculoskeletal: Normal gait, 5/5 strength to all four extremities. Skin: No suspicious rashes or lesions. Capillary refill less than 2 sec. Neurologic: Cranial nerves II-XII intact. Alert and oriented x 3. Motor: No deficits noted. Sensory: Intact bilaterally all 4 extremities. Reflexes: DTR's intact bilaterally.. Hematologic/Lymphatic: No ecchymosis, no lymphadenopathy. Course Vital Signs Vital signs: Vital Signs Temperature 36.8 C 08/10/23 09:35 Pulse 55 L 08/10/23 09:35 Respiratory Rate 18 08/10/23 09:35 Blood Pressure 144/84 H 08/10/23 09:35 Temperature 36.8 C 08/10/23 09:35 Pulse 55 L 08/10/23 09:35 Respiratory Rate 18 08/10/23 09:35 Blood Pressure 144/84 H 08/10/23 09:35 Blood Pressure Position Sitting 08/10/23 09:35 Oxygen Delivery Method Room Air 08/10/23 09:35 Oxygen Flow Rate 0 08/10/23 09:35 Pain Level 7 08/10/23 09:35
[2023-08-10 10:00] LABS: Abs Immature Grans 0.02 10^3/uL (0.0-0.06); Absolute Basophil Count 0.03 10^3/uL (0.0-0.2); Absolute Eosinophil Count 0.05 10^3/uL (0.0-0.7); Absolute Monocyte Count 0.13 10^3/uL (0.1-0.8); Absolute Neutrophil Count 7.45 10^3/uL (1.2-6.7); Basophils % 0.4; Eosinophils % 0.6; HCT 49.2 % (40.0-50.0); HGB 17.1 g/dL (13.5-17.5); Immature Grans % 0.2; Lymphocytes % 8.4; MCH 29.3 pg (27.0-33.0); MCHC 34.8 % (32.0-36.0); MCV 84 fL (80-95); MPV 10.2 fL (8.0-11.0); Monocytes % 1.6; Neutrophils % 88.8; Platelet Count 329 10^3/uL (130-400); RBC 5.84 10^6/uL (4.36-5.78); RDW 12.7 % (11.8-14.1); RDW-SD 38.9 fL; WBC 8.38 10^3/uL (4.4-10.8)
[2023-08-10] MEDS: Ondansetron 4 MG/2 ML VIAL IVP (10:10)
[2023-08-10] MEDS: Normal Saline 1,000 ML 1000 ML IV (10:10)
[2023-08-10 10:14] LABS: ALT 35 U/L (16-63); AST 29 U/L (15-37); Albumin 4.2 g/dL (3.4-5.0); Alkaline Phosphatase 75 U/L (46-116); Anion Gap 9.7 mmol/L (3-11); BUN 10 mg/dL (7-18); Bilirubin, Total 0.5 mg/dL (0.2-1.0); CO2 25.3 mmol/L (21.0-32.0); CREATININE 1.2 mg/dL (0.70-1.30); Chloride 103 mmol/L (98-107); Estimated GFR 80.88 (mL/min/1.73m2); Glucose 140 mg/dL (74-106); Lipase 27 U/L (16-77); Magnesium 2.1 mg/dL (1.8-2.4); Potassium 3.7 mmol/L (3.5-5.1); Sodium 138 mmol/L (136-145)
[2023-08-10] MEDS: Normal Saline - Diluent 50 ML VIAL IJ (10:20)
[2023-08-10] MEDS: Normal Saline Flush 10 ML SYR IVP (10:20)
[2023-08-10] MEDS: Omnipaque 350 MG/ML 100 ML BTL IJ (10:21)
--- NOTE | 2023-08-10 10:43 | DI.VRAD_ITS ---
PROCEDURE INFORMATION: Exam: CT Abdomen And Pelvis With Contrast Exam date and time: 08/10/2023 10:19 AM Age: 37 years old Clinical indication: Abdominal tenderness and nausea and vomiting TECHNIQUE: Imaging protocol: Computed tomography of the abdomen and pelvis with contrast. Radiation optimization: All CT scans at this facility use at least one of these dose optimization techniques: automated exposure control; mA and/or kV adjustment per patient size (includes targeted exams where dose is matched to clinical indication); or iterative reconstruction. Contrast material: OMNI 350; Contrast volume: 100 ml; Contrast route: INTRAVENOUS (IV); COMPARISON: CT ABDOMEN PELVIS W 12/06/2021 1:23 PM FINDINGS: Liver: Normal. No mass. Gallbladder and bile ducts: Normal. No calcified stones. No ductal dilation. Pancreas: Normal. No ductal dilation. Spleen: Normal. No splenomegaly. Adrenal glands: Normal. No mass. Kidneys and ureters: There is no evidence of renal or ureteral calcifications. Stomach and bowel: Unremarkable. No obstruction. No mucosal thickening. Appendix: No evidence of appendicitis. Intraperitoneal space: 2.47 x 1.3 fluid collection anterior to the iliopsoas muscle on the left. . Series 4 image 69 It was present in November 2021. Vasculature: Unremarkable. No abdominal aortic aneurysm. Lymph nodes: Unremarkable. No enlarged lymph nodes. Urinary bladder: Unremarkable as visualized. Reproductive: Unremarkable as visualized. Bones/joints: Unremarkable. No acute fracture. Soft tissues: Unremarkable. IMPRESSION: 2.47 x 1.3 fluid collection anterior to the iliopsoas muscle on the left. It was present in November 2021. Differential includes abscess, hematoma, seroma. Dictated and Authenticated by: Abram Wilde MD. Ordering:MONICA Foley MD
[2023-08-10 10:53] LABS: Bilirubin Negative (Negative); Blood Trace-intact (Negative); Clarity Clear (Clear); Glucose 100 mg/dL (Negative); Ketones 80 mg/dL (Negative); Leukocyte Esterase Negative (Negative); Nitrite Negative (Negative); Specific Gravity 1.015 (1.005-1.025); Urobilinogen 0.2 mg/dL (Up to 0.2); pH 8.5 (5-8)
[2023-08-10 11:08] LABS: Bacteria Negative HPF (Negative); C & S Indicated? No; Casts Negative LPF (Negative); Crystals Negative HPF (Negative); Epithelial Cells Rare HPF (Negative); Mucus Negative (Negative); WBC 0-2 HPF (0-5)
[2023-08-10 11:48] LABS: *AMPHETAMINES SCREEN URINE Negative (Negative); *BARBITURATES SCREEN URINE Negative (Negative); *BENZODIAZEPINES SCREEN URINE Negative (Negative); Cannabinoids THC Positive (Negative); Cocaine Screen,Urine Negative (Negative); METHADONE URINE SCREEN Negative (Negative); OPIATES URINE SCREEN Positive (Negative)
[2023-08-10 11:49] LABS: Tricyclic Antidepressants Negative (Negative)
[2023-08-10] MEDS: Ondansetron O.D.T. 4 MG TABEF, 3 TABS/BTL PO (12:23)
== END 2023-08-10 12:24 | disposition home or self-care (01) ==
PROVIDERS: Emergency Provider Registered Nurse Emergency; PCP Nurse Practitioner Adult Health
DX: R10.84 Generalized abdominal pain (principal); R11.10 Vomiting, unspecified; R42 Dizziness and giddiness; F17.210 Nicotine dependence, cigarettes, uncomplicated
CPT/HCPCS: 36415; 80053; 80307; 83690; 96361; 96374; 96375; 99285; 74177; 81003; 81015; 83735; 85025; 99284; J2405; J3490

== ENCOUNTER 2023-08-18 09:11 | Outpatient (REF) | payer MEDICAID, SELFPAY ==
[2023-08-18 15:27] LABS: Bilirubin Negative (Negative); Blood Negative (Negative); Clarity Cloudy (Clear); Glucose Negative (Negative); Ketones Negative (Negative); Leukocyte Esterase Negative (Negative); Nitrite Negative (Negative); Specific Gravity 1.025 (1.005-1.025); Urobilinogen 0.2 mg/dL (Up to 0.2); pH 5.5 (5-8)
== END 2023-08-18 09:12 | disposition home or self-care (01) ==
LOC: LBN 09:11
PROVIDERS: PCP Nurse Practitioner Adult Health; Visit Provider Nurse Practitioner Adult Health
DX: R82.90 Unspecified abnormal findings in urine (principal)
CPT/HCPCS: 81003

== ENCOUNTER 2024-07-26 03:03 | Outpatient (CLI) | payer MEDICAID, SELFPAY ==
[2024-07-26 09:46] LABS: ALT 31 U/L (16-63); AST 20 U/L (15-37); Albumin 3.6 g/dL (3.4-5.0); Alkaline Phosphatase 84 U/L (46-116); Anion Gap 7.8 mmol/L (3-11); BUN 9 mg/dL (7-18); Bilirubin, Total 0.36 mg/dL (0.2-1.0); CO2 30.2 mmol/L (21.0-32.0); CREATININE 1.1 mg/dL (0.70-1.30); Calcium 9.6 mg/dL (8.5-10.1); Calculated LDL 105 mg/dL (<100); Chloride 106 mmol/L (98-107); Cholesterol 179 mg/dL (<200); Estimated GFR 89.22 (mL/min/1.73m2); Glucose 110 mg/dL (74-106); HDL Cholesterol 53 mg/dL (40-60); Potassium 4.5 mmol/L (3.5-5.1); Sodium 144 mmol/L (136-145); Total Protein 7.3 g/dL (6.4-8.2); Triglyceride 107 mg/dL (<150)
[2024-07-26 10:54] LABS: Hemoglobin A1C 5.6 % (<5.7)
== END 2024-07-26 03:04 | disposition home or self-care (01) ==
LOC: LBO 03:03
PROVIDERS: Absent Provider Nurse Practitioner Adult Health; PCP Nurse Practitioner Adult Health; Visit Provider Nurse Practitioner Adult Health
DX: Z13.220 Encounter for screening for lipoid disorders (principal); R73.01 Impaired fasting glucose
CPT/HCPCS: 36415; 80053; 80061; 83036